=== PATIENT | female | born 1955 | race Caucasian/White ===

== ENCOUNTER 2017-12-28 16:26 | Inpatient (IN) | payer MEDICAID, SELFPAY ==
[2017-12-28 16:57] VITALS: BP 149/85; PULSE 84; RESP 17; TEMP 36.6; O2SAT 96; BMI 30.2
[2017-12-28 19:40] VITALS: BP 129/78; PULSE 90; RESP 12; TEMP 36.6; O2SAT 95
[2017-12-28] MEDS: HYDROcodone Bitartrate/Apap 5/325 Tablet PO (20:02)
[2017-12-28] MEDS: Senna/Docusate Sodium 1 Tablet 2 TABLET PO (21:54)
[2017-12-28] MEDS: MELATONIN 10 MG TABLET 5 MG PO (21:55)
[2017-12-29] MEDS: HYDROcodone Bitartrate/Apap 5/325 Tablet PO ×3 (04:28→20:06)
[2017-12-29 05:58] LABS: Hematocrit 38.9 % (37-47); Hemoglobin 11.8 g/dl (12.0-15.0); Mean Corp Hgb Conc 30.3 g/gl (32-36); Mean Corpuscular Hgb 29.4 pg (27.0-32.0); Mean Platelet Vol. 10.5 fl (6.2-12.0); Platelet Count 252 K/mm3 (150-450); RBC Distribution Width CV 14.6 % (11.6-14.6); RBC Distribution Width SD 51.9 fl (35.1-43.9); Red Blood Count 4.01 M/mm3 (4.2-5.4); White Blood Count 6.4 K/mm3 (4.4-11.0)
[2017-12-29 06:04] LABS: Scan Indicated on CBC? Y/N NO
[2017-12-29 06:26] LABS: Anion Gap 7 (5-15); BUN 21 mg/dL (7-18); BUN/Creat Ratio 24.2 RATIO (10-20); Calcium,Total 8.7 mg/dL (8.5-10.1); Chloride 108 mmol/L (98-107); Creatinine, Serum 0.87 mg/dL (0.55-1.02); EST Glomerular Filtration Rate 71 mL/min (>60); Est Glom Filt Rate - Afr Amer 85 mL/min (>60); Estimated Creatinine Clearance 54.39 ml/min; Glucose 106 mg/dL (74-106); Potassium 4.1 mmol/L (3.5-5.1); Sodium Level 141 mmol/L (136-145)
[2017-12-29] MEDS: Senna/Docusate Sodium 1 Tablet 2 TABLET PO ×2 (08:23→19:57)
[2017-12-29] MEDS: Multivitamins,Ther W-Minerals Tablet 1 TABLET PO (08:24)
[2017-12-29] MEDS: Loratadine 10 MG Tablet PO (08:24)
[2017-12-29] MEDS: Gabapentin 300 MG Capsule PO ×2 (08:24→17:12)
--- NOTE | 2017-12-29 09:31 | HP.PCM.COS_ITS ---
<Gideon Carpio - Last Filed: 12/29/17 11:37> History of Present Illness The patient is a 62 year old F [] Past Medical History Allergies cefaclor [From Ceclor] Allergy (Verified 07/15/17 13:21) Hives cephalexin [From Keflex] Allergy (Verified 07/15/17 13:21) Hives cetirizine [From Zyrtec] Allergy (Verified 12/28/17 18:21) Itching Penicillins Allergy (Verified 07/15/17 13:21) Unknown Sulfa (Sulfonamide Antibiotics) Allergy (Verified 12/28/17 18:01) Hives acetaminophen [From Vicodin] Adverse Reaction (Verified 07/15/17 13:21) Nausea/Vomiting azithromycin [From Zithromax] Adverse Reaction (Verified 12/28/17 18:01) Unknown clarithromycin [From Biaxin] Adverse Reaction (Verified 12/28/17 18:01) Nausea/Vom/Diarrhea erythromycin base Adverse Reaction (Verified 12/28/17 18:01) Nausea/Vom/Diarrhea hydrocodone bitartrate [From Vicodin] Adverse Reaction (Verified 07/15/17 13:21) Nausea/Vomiting salsalate [From Disalcid] Adverse Reaction (Verified 12/28/17 18:01) Nausea/Vom/Diarrhea Home Medications: Ambulatory Orders Medication Instructions Recorded Loratadine [Claritin] 10 mg PO DAILY 05/28/14 Multivit-Min/FA/Lycopene/Lut 1 each PO DAILY 07/25/14 [Centrum Silver Tablet] Exemestane [Aromasin] 25 mg PO QHS 07/15/17 Gabapentin [Neurontin] 300 mg PO BID 12/28/17 - Physical Exam Vital Signs Temp Pulse Resp BP Pulse Ox 36.5 C L 97 17 139/91 H 97 12/29/17 10:00 12/29/17 10:00 12/29/17 10:00 12/29/17 10:00 12/29/17 10:00 Oxygen Delivery Method Room Air Weight: 74.8 kg Body Mass Index (BMI) 30.2 Intake and Output for Last 24 Hours 12/27/17 12/28/17 12/29/17 23:59 23:59 23:59 Intake Total 120 / 120 240 / 240 Output Total 120 / 120 200 / 200 Balance 0 / 0 40 / 40 Laboratory Tests Past 24 Hrs 12/29/17 12/29/17 05:20 05:20 WBC 6.4 RBC 4.01 L Hgb 11.8 L Hct 38.9 MCV 97.0 MCH 29.4 MCHC 30.3 L RDW 14.6 RDW Differential 51.9 H Plt Count 252 MPV 10.5 Sodium 141 Potassium 4.1 Chloride 108 H Carbon Dioxide 26.0 Anion Gap 7 BUN 21 H Creatinine 0.87 Estim Creat Clear Calc 54.39 Est GFR (MDRD) Af Amer 85 Est GFR (MDRD) Non-Af 71 BUN/Creatinine Ratio 24.2 H Glucose 106 Calcium 8.7 <Donya Muniz - Last Filed: 12/29/17 14:54> History of Present Illness Date of Admission: 12/29/17 Chief Complaint: Right Ankle Fracture The patient is a 62 year old right handed female, admitted to the rehab unit after suffering a mechanical fall in which she sustained a bimalleolar mildly displace fracture of her right ankle. She has a past medical history of Breast cancer, relapsing Multiple Sclerosis, Sleep apnea, ulcers and depression. She under went an ORIF of her ankle on 12/24/[address] Kam. She is non-weight bearing on the right, she has a splint in place with sutures, the sutures may be removed in one week with follow up with Dr. Kam at discharge. She lives with her son and father in a bilevel home with about 3 to 4 steps to get into the home and about 4 to 5 steps to go from the first level to the second level. She was previously completely functionally independent and is admitted to the rehab unit in order to restore her previous level of functional independence. Past Medical History Allergies cefaclor [From Ceclor] Allergy (Verified 07/15/17 13:21) Hives cephalexin [From Keflex] Allergy (Verified 07/15/17 13:21) Hives cetirizine [From Zyrtec] Allergy (Verified 12/28/17 18:21) Itching Penicillins Allergy (Verified 07/15/17 13:21) Unknown Sulfa (Sulfonamide Antibiotics) Allergy (Verified 12/28/17 18:01) Hives acetaminophen [From Vicodin] Adverse Reaction (Verified 07/15/17 13:21) Nausea/Vomiting azithromycin [From Zithromax] Adverse Reaction (Verified 12/28/17 18:01) Unknown clarithromycin [From Biaxin] Adverse Reaction (Verified 12/28/17 18:01) Nausea/Vom/Diarrhea erythromycin base Adverse Reaction (Verified 12/28/17 18:01) Nausea/Vom/Diarrhea hydrocodone bitartrate [From Vicodin] Adverse Reaction (Verified 07/15/17 13:21) Nausea/Vomiting salsalate [From Disalcid] Adverse Reaction (Verified 12/28/17 18:01) Nausea/Vom/Diarrhea Surgical History: hysterectomy, tonsillectomy, - - Lumpectomy of left breast Psychiatric History: Depression 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: - - Breast cancer Lives: With Family Smoking Status: Former smoker Alcohol: Occasional Drugs: None Review of Systems Constitutional: Denies: Chills, Fever, Weight Change HEENT: Denies: Head Aches, Sinus Congestion, Sinus Drainage Cardiovascular: Denies: Chest Pain, Palpitations Respiratory: Denies: Cough, Shortness of breath at rest, Sputum production Gastrointestinal: Denies: Abdominal Pain, Nausea, Vomiting Genitourinary: Denies: Dysuria Musculoskeletal: Denies: Joint Pain, Joint Tenderness Skin: Denies: Rash, Wounds Neurological: Denies: Numbness, Tingling, Focal weakness Psychiatric: Denies: Anxiety, Depression, Homicidal Ideations, Suicidal Ideations Hematologic/ Lymphatic: Denies: Easy Bruising, Easy Bleeding VTE Information - Inpt Only VTE Present on Admission: No VTE Mechan Device Prophylaxis: SCD's, Knee High SHIRA Hose VTE Pharm Prophylaxis ordered?: Yes - Physical Exam General: Alert, Oriented x3, Cooperative HEENT: Atraumatic, PERRLA, EOMI, Normocephalic Neck: Supple, No JVD, Negative Carotid Bruits Lungs: Clear to auscultation, Normal air movement Cardiovascular: Regular rate, No murmurs Abdomen: Bowel Sounds Present, Soft, Non Tender Extremities: No edema, Capillary Refill Less than 3 Seconds, - - Cast to right lower leg, foot is warm to touch Skin: No rashes, No breakdown Musculoskeletal: No Tenderness to Palpation of Joints or Extremities Neurological: Cranial nerves II-XII grossly intact, Motor Exam 5/5 strength throughout - unable to test right leg Psych/Mental Status: Normal Affect, Appropriate, Alert and oriented to time, place, person, mood and affect Vital Signs Temp Pulse Resp BP Pulse Ox 98 F 90 12 129/78 H 95 12/28/17 19:40 12/28/17 19:40 12/28/17 19:40 12/28/17 19:40 12/28/17 19:40 Oxygen Delivery Method Room Air Weight: 74.8 kg Body Mass Index (BMI) 30.2 Intake and Output for Last 24 Hours 12/27/17 12/28/17 12/29/17 23:59 23:59 23:59 Intake Total 120 / 120 240 / 240 Output Total 120 / 120 200 / 200 Balance 0 / 0 40 / 40 Laboratory Tests Past 24 Hrs 12/29/17 12/29/17 05:20 05:20 WBC 6.4 RBC 4.01 L Hgb 11.8 L Hct 38.9 MCV 97.0 MCH 29.4 MCHC 30.3 L RDW 14.6 RDW Differential 51.9 H Plt Count 252 MPV 10.5 Sodium 141 Potassium 4.1 Chloride 108 H Carbon Dioxide 26.0 Anion Gap 7 BUN 21 H Creatinine 0.87 Estim Creat Clear Calc 54.39 Est GFR (MDRD) Af Amer 85 Est GFR (MDRD) Non-Af 71 BUN/Creatinine Ratio 24.2 H Glucose 106 Calcium 8.7 Active Medications Hydrocodone Bitart/Acetaminophen ([place] 5mg-325mg) 1 - 2 tablet PO Q6H PRN PRN PRN Reason: MOD-SEVERE PAIN (4-10/10) Last Admin: 12/29/17 04:28 Dose: 2 tablet Bisacodyl (Dulcolax) 10 mg RECTAL .PRN X 1 PRN PRN Reason: Constipation Enoxaparin Sodium (Lovenox) 40 mg SC DAILY [facility] Last Admin: 12/29/17 10:27 Dose: 40 mg Exemestane (Aromasin) 25 mg PO QHS [facility] Last Admin: 12/28/17 21:57 Dose: 25 mg Gabapentin ([facility]urontin) [facility] Last Admin: 12/29/17 08:24 Dose: 300 mg Loratadine (Claritin) 10 mg PO DAILY [facility] Last Admin: 12/29/17 08:24 Dose: 10 mg Magnesium Hydroxide (Milk Of Magnesia) 30 ml PO .PRN X 1 PRN PRN Reason: Constipation Melatonin (Mel[facility]) [facility] Last Admin: 12/28/17 21:55 Dose: 5 mg Multivitamins/Minerals (Multivitamin With Minerals) 1 tablet PO DAILY@0800 [facility] Last Admin: 12/29/17 08:24 Dose: 1 tablet Senna/Docusate Sodium (Senokot-S, Carrie-Colace) 2 tablet PO BID [facility] Last Admin: 12/29/17 08:23 Dose: 2 tablet Assessment/Plan Debility s/p Right ankle fx/orif, complicated by MS, Trigeminal Neuralgia, and depression. goal of rehab is confucianism of functional independence. - PT for gait and balance - OT for adls - PRN analgesics - Bowel protocol - DVT prophylaxis: Lovenox, SCDs, and Shira Hoses - Hx TN: continue home dose of GPN 300mg BID, and Tegretol 100mg BID - Hx Relapsing MS: currently in remission patient is not on any medication at present - Hx Left breast Lumpectomy - Hx Depression currently not on medications was on Lexapro - Right ankle ORIF => NWB, in soft cast dressing is C/D/I, Sutures removal on 05 january by rehab team. Follow up with surgeon on discharge from rehab
[2017-12-29 10:00] VITALS: BP 139/91; PULSE 97; RESP 17; TEMP 36.5; O2SAT 97
[2017-12-29] MEDS: Enoxaparin 40 MG/0.4 ML Syringe SC (10:27)
--- NOTE | 2017-12-29 11:23 | PCM.RU.PYE ---
Admission Information Status Changes from Prescreening?: No changes Identified Actual Problem List:: Falls, Pain, ALteration in Cmfrt, Mobility Impaired, Self Care Deficit, Ineffect.D/C Plan r/t Psy Potential Problem List:: DVT, Bleeding, Infection, UTI, Aspiration, Falls, Skin Integrity, Depression Risk of Complications DVT: LMWH, SHIRA Hose, Sequential Compression Device Bleeding: Monitor Lab Values, Nursing to Teach Precautions for anti-coagulation therapy., Wound, if applicable, to be assessed every shift., Stroke patients assessed for lethargy or change in status. Infection: Clinical Staff to Monitor for S/S of infection:, S/S of infection include fever, redness, warmth, etc. Urinary Tract Infection: Monitor for frequency, burning, discomfort, or incontinence., Nursing will obtain urine sample for urinalysis and C&S when ordered. Aspiration: Clinical staff will monitor for coughing, drooling, congestion., Speech will evaluate swallowing and dsyphasia., Nursing will monitor patient swallowing during meals. Falls: Patient will be evaluated for Fall Precautions, Patient will be placed on Fall Precautions as indicated per protocol. Skin Breakdown: Nursing will assess skin daily using assessment tool., Nursing will place on Skin Breakdown Precautions as indicated. Pain: Clinical staff will assess patient's pain level per protocol., Medications will be given, if needed, and the pain level reassessed., Other methods: Massage, distraction, decrease stimulus, etc. used PRN. Plan of Care Patient requires physician specializing in physical medicine and rehab oversight to provide close medical supervision of rehab issues including: Pain Management, Sleep Problems, Bowel and Bladder, Medical and co-morbidity Management, DVT prophylaxis, Rehabilitation Leadership, Coordination of treatment team Patient needs Physical Therapy: For a minimum of 1 hour, At least 5 out of 7 days Patient needs Physical Therapy to improve:: Mobility, Mobility, Mobility, Strengthening, Transfers, Stretching, ROM, Endurance, Stairs, Gait, Balance Patient needs Occupational Therapy: For a minimum of 1 hour, At least 5 out of 7 days Patient needs Occupational Therapy to improve ADL's incl.: Eating, Grooming, Bathing, Dressing, Toileting, Toilet transfers, Community Reintegration, Higher functioning activities, Household tasks, Adaptive Equipment, Splinting, Other activities as determined Patient requires 24/ Rehabilitation Nursing for: Pain Issues, Identifying and preventing risk factors, Monitoring and reporting current medical conditions, Assisting with ambulation, transfer, and all ADL's, Teaching patients about disease process and medications, Family teaching, Providing safe environment, Bowel and Bladder Issues, Skin integrity, Medication Management Patient needs Stave Log Ripsaw Operator/ Case Management for: Discharge Planning, Arranging Home Equipment or Services, Family Interventions Patient needs Dietary and Nutrition Services for: Adequate Nutrition, Nutritional Supplements, Nutritional Education Goals Patient will remain: free from falls, or injury at time of discharge. Patient will perform bed mobility at: MOD I level of assist. Patient will complete transfers from bed to chair at: MOD I level of assist. Patient will ambulate: 100 feet, with MOD I assist, with LRD Patient will complete upper body dressing at: MOD I level of assist. Patient will complete lower body dressing at: MOD I level of assist. Patient will complete toileting at: MOD I level of assist. Patient will perform bathing at: MOD I level of assist. Patient will complete grooming at: MOD I level of assist. Patient will complete home management skills at: MOD I level of assist. Patient will achieve: 12 stairs, at MOD I assist Patient will have pain level of: of 3 or less Patient's skin will: remain intact, free from infection. Patient will receive: adequate nutrition. Discharge Planning Pt Prognosis for Sig. Practical Improv. w/in Reasonable Time: Good Anticipated D/C Destination: Home with Outpt Therapy Was Preadmission Assessment Accurate?: Yes
[2017-12-29 13:00] VITALS: O2SAT 97
--- NOTE | 2017-12-29 14:28 | PCM.PN.HOSP ---
Subjective: CC: s/p ORIF right ankle. Objective: This is a 62 year old female with a history of breast cancer, relapsing Multiple Sclerosis, Sleep apnea, peptic ulcers and depression who is s/p ORIF of her right ankle on 12/24/17 at [facility], after she had a mechanical fall in which she sustained a bimalleolar mildly displace fracture of her right ankle, she is now admitted to the rehab unit for further post acute care rehabilitation. The patient currently denies any chest pain , shortness of breath, palpitations or rapid heartbeat. Vitals/I&O's: Vital Signs Temp Pulse Resp BP Pulse Ox 97.7 F L 97 17 139/91 H 97 12/29/17 10:00 12/29/17 10:00 12/29/17 10:00 12/29/17 10:00 12/29/17 13:00 Oxygen Delivery Method Room Air Weight: 74.8 kg Body Mass Index (BMI) 30.2 Intake and Output for Last 24 Hours 12/27/17 12/28/17 12/29/17 23:59 23:59 23:59 Intake Total 120 / 120 480 / 480 Output Total 120 / 120 200 / 200 Balance 0 / 0 280 / 280 General: Alert, Oriented x3 HEENT: Atraumatic, PERRLA Oral: Moist Mucosa Neck: Supple Lungs: Clear to auscultation, No wheeze, No rales Cardiovascular: Regular rate, Normal S1, Normal S2 Abdomen: Bowel Sounds Present, Soft, Non Tender Extremities: No edema Musculoskeletal: - Laboratory Results 12/29/17 05:20: WBC 6.4, RBC 4.01 L, Hgb 11.8 L, Hct 38.9, MCV 97.0, MCH 29.4, MCHC 30.3 L, RDW 14.6, RDW Differential 51.9 H, Plt Count 252, MPV 10.5 12/29/17 05:20: Sodium 141, Potassium 4.1, Chloride 108 H, Carbon Dioxide 26.0, Anion Gap 7, BUN 21 H, Creatinine 0.87, Estim Creat Clear Calc 54.39, Est GFR (MDRD) Af Amer 85, Est GFR (MDRD) Non-Af 71, BUN/Creatinine Ratio 24.2 H, Glucose 106, Calcium 8.7 Current Medications Hydrocodone Bitart/Acetaminophen ([place] 5mg-325mg) 1 - 2 tablet PO Q6H PRN PRN PRN Reason: MOD-SEVERE PAIN (4-10/10) Last Admin: 12/29/17 13:26 Dose: 2 tablet Bisacodyl (Dulcolax) 10 mg RECTAL .PRN X 1 PRN PRN Reason: Constipation Carbamazepine (Tegretol) [facility] Enoxaparin Sodium (Lovenox) 40 mg SC DAILY [facility] Last Admin: 12/29/17 10:27 Dose: 40 mg Exemestane (Aromasin) 25 mg PO QHS [facility] Last Admin: 12/28/17 21:57 Dose: 25 mg Gabapentin (Neurontin) [facility] Last Admin: 12/29/17 08:24 Dose: 300 mg Loratadine (Claritin) 10 mg PO DAILY [facility] Last Admin: 12/29/17 08:24 Dose: 10 mg Magnesium Hydroxide (Milk Of Magnesia) 30 ml PO .PRN X 1 PRN PRN Reason: Constipation [facility]) [facility] Last Admin: 12/28/17 21:55 Dose: 5 mg Multivitamins/Minerals (Multivitamin With Minerals) 1 tablet PO DAILY@0800 [facility] Last Admin: 12/29/17 08:24 Dose: 1 tablet Senna/Docusate Sodium (Senokot-S, Carrie-Colace) 2 tablet PO BID [facility] Last Admin: 12/29/17 08:23 Dose: 2 tablet Medical Necessity - Tobacco Use Smoking Status: Former smoker Assessment/Plan 1. Status post ORIF of right ankle; the patient is nonweightbearing at this time, continue physical therapy as tolerated and optimize pain control. 2. Relapsing Multiple Sclerosis; she is currently in remission. 3. Breast cancer s/p lumpectomy. 4. Sleep apnea; med recommend HS CPAP 5. Depression; this is stable. 7. DVT prophylaxis with Lovenox. Code Visit Inpatient E&M: 84907 Subs Hosp L2
--- NOTE | 2017-12-29 15:59 | CASEMGMT ---
Social Work Telephone call to patient son, Corby. This social services counselor introduced self as well as social work role. This social services counselor educating Corby on insurance process on the Inpatient Rehab Unit as well as when the first team meeting will be. Corby voicing understanding. Support given. Will continue to follow. Lavinia JONES, DIETETIC TECHNICIAN
[2017-12-29] MEDS: carBAMazepine 200 MG Tablet 100 MG PO (17:12)
--- NOTE | 2017-12-29 18:12 | NURSING ---
Reviewed STERILE PROCESS COORDINATOR findings and agree.
[2017-12-29 19:30] VITALS: BP 151/86; PULSE 92; RESP 16; TEMP 36.7; O2SAT 97
[2017-12-29] MEDS: MELATONIN 10 MG TABLET 5 MG PO (19:56)
--- NOTE | 2017-12-30 01:18 | NURSING ---
Reviewed and agree with DOMESTIC LAUNDRY WORKER documentation and FIMS charting.
[2017-12-30] MEDS: HYDROcodone Bitartrate/Apap 5/325 Tablet PO ×2 (05:52→17:12)
[2017-12-30] MEDS: Enoxaparin 40 MG/0.4 ML Syringe SC (06:00)
[2017-12-30 06:45] VITALS: O2SAT 97
[2017-12-30 08:16] VITALS: BP 144/90; PULSE 103; RESP 18; TEMP 36.8; O2SAT 93
[2017-12-30] MEDS: carBAMazepine 200 MG Tablet 100 MG PO ×2 (08:29→17:14)
[2017-12-30] MEDS: Senna/Docusate Sodium 1 Tablet 2 TABLET PO (08:29)
[2017-12-30] MEDS: Pantoprazole Sodium 40 MG Tablet PO (08:30)
[2017-12-30] MEDS: Gabapentin 300 MG Capsule PO ×2 (08:30→17:15)
[2017-12-30] MEDS: Multivitamins,Ther W-Minerals Tablet 1 TABLET PO (08:30)
[2017-12-30] MEDS: Loratadine 10 MG Tablet PO (08:30)
--- NOTE | 2017-12-30 10:24 | PCM.PN.NEU ---
Subjective: Patient seen and examined. No acute issues over night. Tolerating therapy. No issues with GI/. Patient does snore during the night and has trouble staying awake during the day, easily falls a sleep during activates, or watching T.V. This could be related to her MS but feel she may need a PSG to rule out obstructive sleep apnea. - Physical Exam General: Alert, Oriented x3, Cooperative HEENT: Atraumatic, PERRLA, EOMI, Normocephalic Neck: Supple, No JVD, Negative Carotid Bruits Lungs: Clear to auscultation, Normal air movement Cardiovascular: Regular rate, No murmurs Abdomen: Bowel Sounds Present, Soft, Non Tender Extremities: No edema, Capillary Refill Less than 3 Seconds Skin: No rashes, No breakdown Musculoskeletal: No Tenderness to Palpation of Joints or Extremities Neurological: Cranial nerves II-XII grossly intact Psych/Mental Status: Normal Affect, Appropriate Vital Signs Temp Pulse Resp BP Pulse Ox 98.2 F 103 H 18 144/90 H 93 12/30/17 08:16 12/30/17 08:16 12/30/17 08:16 12/30/17 08:16 12/30/17 08:16 Oxygen Delivery Method Room Air Weight: 74.8 kg Body Mass Index (BMI) 30.2 Intake and Output for Last 24 Hours 12/28/17 12/29/17 12/30/17 23:59 23:59 23:59 Intake Total 120 / 120 720 / 720 240 / 240 Output Total 120 / 120 200 / 200 Balance 0 / 0 520 / 520 240 / 240 Active Medications Hydrocodone Bitart/Acetaminophen ([place] 5mg-325mg) 1 - 2 tablet PO Q6H PRN PRN PRN Reason: MOD-SEVERE PAIN (4-10/10) Last Admin: 12/30/17 05:52 Dose: 2 tablet Bisacodyl (Dulcolax) 10 mg RECTAL .PRN X 1 PRN PRN Reason: Constipation [facility]) [facility] Last Admin: 12/30/17 08:29 Dose: 100 mg Enoxaparin Sodium (Lovenox) 40 mg SC DAILY@0600 [facility] Last Admin: 12/30/17 06:00 Dose: 40 mg Exemestane (Aromasin) 25 mg PO QHS [facility] Last Admin: 12/29/17 19:57 Dose: 25 mg Gabapentin (Neurontin) [facility] Last Admin: 12/30/17 08:30 Dose: 300 mg Loratadine (Claritin) 10 mg PO DAILY [facility] Last Admin: 12/30/17 08:30 Dose: 10 mg Magnesium Hydroxide (Milk Of Magnesia) 30 ml PO .PRN X 1 PRN PRN Reason: Constipation Melatonin (Melatonin) 5 mg PO QHS [facility] Last Admin: 12/29/17 19:56 Dose: 5 mg Multivitamins/Minerals (Multivitamin With Minerals) 1 tablet PO DAILY@0800 [facility] Last Admin: 12/30/17 08:30 Dose: 1 tablet Pantoprazole Sodium (Protonix) 40 mg PO DAILY [facility] Last Admin: 12/30/17 08:30 Dose: 40 mg Senna/Docusate Sodium (Senokot-S, Carrie-Colace) 2 tablet PO BID [facility] Last Admin: 12/30/17 08:29 Dose: 2 tablet Medical Necessity - Tobacco Use Smoking Status: Former smoker Assessment/Plan Debility s/p Right ankle fx/orif, complicated by MS, Trigeminal Neuralgia, and depression. goal of rehab is synagogue of functional independence. - PT for gait and balance - OT for adls - PRN analgesics - Bowel protocol - DVT prophylaxis: Lovenox, SCDs, and Zoltan Hoses - Hx TN: continue home dose of GPN 300mg BID, and Tegretol 100mg BID - Hx Relapsing MS: currently in remission patient is not on any medication at present - Hx Left breast Lumpectomy - Hx Depression currently not on medications was on Lexapro - Right ankle ORIF => NWB, in soft cast dressing is C/D/I, Sutures removal on 05 january by rehab team. Follow up with surgeon on discharge from rehab - Patient snores during the night has trouble staying awake during the day, have problems with daily activities due to excessive tiredness, will schedule a PSG once discharge home
--- NOTE | 2017-12-30 10:28 | PN.NEURO_ITS ---
Subjective: Patient seen and examined. No acute issues over night. Tolerating therapy. No issues with GI/. Patient does snore during the night and has trouble staying awake during the day, easily falls a sleep during activates, or watching T.V. This could be related to her MS but feel she may need a PSG to rule out obstructive sleep apnea. - Physical Exam General: Alert, Oriented x3, Cooperative HEENT: Atraumatic, PERRLA, EOMI, Normocephalic Neck: Supple, No JVD, Negative Carotid Bruits Lungs: Clear to auscultation, Normal air movement Cardiovascular: Regular rate, No murmurs Abdomen: Bowel Sounds Present, Soft, Non Tender Extremities: No edema, Capillary Refill Less than 3 Seconds Skin: No rashes, No breakdown Musculoskeletal: No Tenderness to Palpation of Joints or Extremities Neurological: Cranial nerves II-XII grossly intact Psych/Mental Status: Normal Affect, Appropriate Vital Signs Temp Pulse Resp BP Pulse Ox 98.2 F 103 H 18 144/90 H 93 12/30/17 08:16 12/30/17 08:16 12/30/17 08:16 12/30/17 08:16 12/30/17 08:16 Oxygen Delivery Method Room Air Weight: 74.8 kg Body Mass Index (BMI) 30.2 Intake and Output for Last 24 Hours 12/28/17 12/29/17 12/30/17 23:59 23:59 23:59 Intake Total 120 / 120 720 / 720 240 / 240 Output Total 120 / 120 200 / 200 Balance 0 / 0 520 / 520 240 / 240 Active Medications Hydrocodone Bitart/Acetaminophen ([place] 5mg-325mg) 1 - 2 tablet PO Q6H PRN PRN PRN Reason: MOD-SEVERE PAIN (4-10/10) Last Admin: 12/30/17 05:52 Dose: 2 tablet Bisacodyl (Dulcolax) 10 mg RECTAL .PRN X 1 PRN PRN Reason: Constipation Carbamazepine ([facility]) [facility] Last Admin: 12/30/17 08:29 Dose: 100 mg Enoxaparin Sodium (Lovenox) 40 mg SC DAILY@0600 [facility] Last Admin: 12/30/17 06:00 Dose: 40 mg Exemestane (Aromasin) 25 mg PO QHS [facility] Last Admin: 12/29/17 19:57 Dose: 25 mg Gabapentin (Neurontin) [facility] Last Admin: 12/30/17 08:30 Dose: 300 mg Loratadine (Claritin) 10 mg PO DAILY [facility] Last Admin: 12/30/17 08:30 Dose: 10 mg Magnesium Hydroxide (Milk Of Magnesia) 30 ml PO .PRN X 1 PRN PRN Reason: Constipation Melatonin (Melatonin) 5 mg PO QHS [facility] Last Admin: 12/29/17 19:56 Dose: 5 mg Multivitamins/Minerals (Multivitamin With Minerals) 1 tablet PO DAILY@0800 [facility] Last Admin: 12/30/17 08:30 Dose: 1 tablet Pantoprazole Sodium (Protonix) 40 mg PO DAILY [facility] Last Admin: 12/30/17 08:30 Dose: 40 mg Senna/Docusate Sodium (Senokot-S, Carrie-Colace) 2 tablet PO BID [facility] Last Admin: 12/30/17 08:29 Dose: 2 tablet Medical Necessity - Tobacco Use Smoking Status: Former smoker Assessment/Plan Debility s/p Right ankle fx/orif, complicated by MS, Trigeminal Neuralgia, and depression. goal of rehab is [facility] of functional independence. - PT for gait and balance - OT for adls - PRN analgesics - Bowel protocol - DVT prophylaxis: Lovenox, SCDs, and Zoltan Hoses - Hx TN: continue home dose of GPN 300mg BID, and Tegretol 100mg BID - Hx Relapsing MS: currently in remission patient is not on any medication at present - Hx Left breast Lumpectomy - Hx Depression currently not on medications was on Lexapro - Right ankle ORIF => NWB, in soft cast dressing is C/D/I, Sutures removal on 05 january by rehab team. Follow up with surgeon on discharge from rehab - Patient snores during the night has trouble staying awake during the day, have problems with daily activities due to excessive tiredness, will schedule a PSG once discharge home
--- NOTE | 2017-12-30 16:17 | CHAPLAIN ---
Type of Pastoral Visit _x__ Initial Visit ___ Follow-up Visit ___ On-call Visit ___ General Patient Visit ___ Spiritual Assessment ___ Family Conference ___ Bereavement ___ Rapid Response ___ Code Blue ___ Other (describe below) Pastoral Care Referral From _x__ Patient ___ Family ___ Nurse ___ Physician ___ Consumer Services Consultant ___ Gear Hobber Operator ___ Other (describe below) Sacrament/Intervention _x__ Active listening ___ Anointing ___ Moravian ___ Bereavement ___ Communion ___ Lizett exploration ___ ___ Life review _x__ Prayer ___ Reconciliation ___ Sacrament of Sick _x__ Supportive presence ___ Wedding ___ Other (describe below) Pastoral Comments
[2017-12-30 20:30] VITALS: PULSE 98; RESP 18; O2SAT 96
[2017-12-30] MEDS: MELATONIN 10 MG TABLET 5 MG PO (20:54)
--- NOTE | 2017-12-31 03:50 | NURSING ---
Reviewed and agree with MAIL SUPERINTENDENT documentation and FIMS charting.
[2017-12-31] MEDS: Enoxaparin 40 MG/0.4 ML Syringe SC (05:43)
[2017-12-31] MEDS: HYDROcodone Bitartrate/Apap 5/325 Tablet PO ×3 (05:44→21:31)
[2017-12-31] MEDS: Gabapentin 300 MG Capsule PO ×2 (08:00→16:55)
[2017-12-31] MEDS: carBAMazepine 200 MG Tablet 100 MG PO ×2 (08:00→16:55)
[2017-12-31] MEDS: Senna/Docusate Sodium 1 Tablet 2 TABLET PO ×2 (08:00→21:32)
[2017-12-31] MEDS: Multivitamins,Ther W-Minerals Tablet 1 TABLET PO (08:00)
[2017-12-31] MEDS: Loratadine 10 MG Tablet PO (08:01)
[2017-12-31] MEDS: Pantoprazole Sodium 40 MG Tablet PO (08:01)
[2017-12-31 08:50] VITALS: BP 130/82; PULSE 95; RESP 16; TEMP 36.6; O2SAT 94
[2017-12-31 14:43] VITALS: O2SAT 98
[2017-12-31 19:51] VITALS: BP 133/75; PULSE 92; RESP 16; TEMP 36.8; O2SAT 93
[2017-12-31 21:20] VITALS: PULSE 92; RESP 16; O2SAT 93
[2017-12-31] MEDS: MELATONIN 10 MG TABLET 5 MG PO (21:32)
--- NOTE | 2018-01-01 05:58 | NURSING ---
Reviewed LPNs fims and handoff
[2018-01-01] MEDS: Enoxaparin 40 MG/0.4 ML Syringe SC (06:21)
[2018-01-01 08:00] VITALS: BP 119/91; PULSE 108; RESP 17; TEMP 36.5; O2SAT 97
[2018-01-01] MEDS: Senna/Docusate Sodium 1 Tablet 2 TABLET PO ×2 (08:14→21:39)
[2018-01-01] MEDS: Loratadine 10 MG Tablet PO (08:14)
[2018-01-01] MEDS: carBAMazepine 200 MG Tablet 100 MG PO ×2 (08:14→17:15)
[2018-01-01] MEDS: Multivitamins,Ther W-Minerals Tablet 1 TABLET PO (08:14)
[2018-01-01] MEDS: Gabapentin 300 MG Capsule PO ×2 (08:14→17:15)
[2018-01-01] MEDS: Pantoprazole Sodium 40 MG Tablet PO (08:14)
[2018-01-01] MEDS: HYDROcodone Bitartrate/Apap 5/325 Tablet PO ×2 (12:29→21:39)
--- NOTE | 2018-01-01 16:38 | PCM.PN.HOSP ---
Subjective: Patient was seen and examined. No new complains. Denies fever, chills. Therapy going well. Objective: General: Alert, Oriented x3, not pale or jaundiced HEENT: Atraumatic, PERRLA Oral: Moist Mucosa Neck: Supple Lungs: Clear to auscultation, No wheeze, No rales Cardiovascular: Regular rate, Normal S1, Normal S2 Abdomen: Bowel Sounds Present, Soft, Non Tender Extremities: No edema Musculoskeletal: Right ankle fracture, in splint. Vitals/I&O's: Vital Signs Temp Pulse Resp BP Pulse Ox 97.7 F L 108 H 17 119/91 H 97 01/01/18 08:00 01/01/18 08:00 01/01/18 08:00 01/01/18 08:00 01/01/18 08:00 Oxygen Delivery Method Room Air Weight: 74.8 kg Body Mass Index (BMI) 30.2 Intake and Output for Last 24 Hours 12/30/17 12/31/17 01/01/18 23:59 23:59 23:59 Intake Total 600 / 600 700 / 700 480 / 480 Balance 600 / 600 700 / 700 480 / 480 Current Medications Hydrocodone Bitart/Acetaminophen ([place] 5mg-325mg) 1 - 2 tablet PO Q6H PRN PRN PRN Reason: MOD-SEVERE PAIN (4-10/10) Last Admin: 01/01/18 12:29 Dose: 2 tablet Bisacodyl (Dulcolax) 10 mg RECTAL .PRN X 1 PRN PRN Reason: Constipation [facility] Last Admin: 01/01/18 08:14 Dose: 100 mg Enoxaparin Sodium (Lovenox) 40 mg SC DAILY@0600 [facility] Last Admin: 01/01/18 06:21 Dose: 40 mg Exemestane (Aromasin) 25 mg PO QHS [facility] Last Admin: 12/31/17 21:32 Dose: 25 mg Gabapentin (Neurontin) 300 mg PO BIDCM [facility] Last Admin: 01/01/18 08:14 Dose: 300 mg Loratadine (Claritin) 10 mg PO DAILY [facility] Last Admin: 01/01/18 08:14 Dose: 10 mg Magnesium Hydroxide (Milk Of Magnesia) 30 ml PO .PRN X 1 PRN PRN Reason: Constipation Melatonin (Melatonin) 5 mg PO QHS [facility] Last Admin: 12/31/17 21:32 Dose: 5 mg Multivitamins/Minerals (Multivitamin With Minerals) 1 tablet PO DAILY@0800 [facility] Last Admin: 01/01/18 08:14 Dose: 1 tablet Pantoprazole Sodium (Protonix) 40 mg PO DAILY [facility] Last Admin: 01/01/18 08:14 Dose: 40 mg Senna/Docusate Sodium (Senokot-S, Carrie-Colace) 2 tablet PO BID [facility] Last Admin: 01/01/18 08:14 Dose: 2 tablet Medical Necessity - Tobacco Use Smoking Status: Former smoker Assessment/Plan 62 year old female with a history of breast cancer, relapsing multiple Sclerosis, sleep apnea, peptic ulcers and depression who is s/p ORIF of her right ankle on 12/24/17 at [facility]. 1. status post ORIF of right ankle, undergoing physical therapy 2. Relapsing Multiple Sclerosis, in remission 3. Breast cancer s/p lumpectomy, on exemastane 4. Depression, stable 5. DVT prophylaxis with Lovenox. Code Visit Inpatient E&M: 89552 Subs Hosp L2
--- NOTE | 2018-01-01 16:55 | PN_ITS ---
Subjective: Patient was seen and examined. No new complains. Denies fever, chills. Therapy going well. Objective: General: Alert, Oriented x3, not pale or jaundiced HEENT: Atraumatic, PERRLA Oral: Moist Mucosa Neck: Supple Lungs: Clear to auscultation, No wheeze, No rales Cardiovascular: Regular rate, Normal S1, Normal S2 Abdomen: Bowel Sounds Present, Soft, Non Tender Extremities: No edema Musculoskeletal: Right ankle fracture, in splint. Vitals/I&O's: Vital Signs Temp Pulse Resp BP Pulse Ox 97.7 F L 108 H 17 119/91 H 97 01/01/18 08:00 01/01/18 08:00 01/01/18 08:00 01/01/18 08:00 01/01/18 08:00 Oxygen Delivery Method Room Air Weight: 74.8 kg Body Mass Index (BMI) 30.2 Intake and Output for Last 24 Hours 12/30/17 12/31/17 01/01/18 23:59 23:59 23:59 Intake Total 600 / 600 700 / 700 480 / 480 Balance 600 / 600 700 / 700 480 / 480 Current Medications Hydrocodone Bitart/Acetaminophen ([place] 5mg-325mg) 1 - 2 tablet PO Q6H PRN PRN PRN Reason: MOD-SEVERE PAIN (4-10/10) Last Admin: 01/01/18 12:29 Dose: 2 tablet Bisacodyl (Dulcolax) 10 mg RECTAL .PRN X 1 PRN PRN Reason: Constipation [facility] ([facility]) [facility] Last Admin: 01/01/18 08:14 Dose: 100 mg Enoxaparin Sodium (Lovenox) 40 mg SC DAILY@0600 [facility] Last Admin: 01/01/18 06:21 Dose: 40 mg Exemestane (Aromasin) 25 mg PO QHS [facility] Last Admin: 12/31/17 21:32 Dose: 25 mg Gabapentin (Neurontin) 300 mg PO BIDCM [facility] Last Admin: 01/01/18 08:14 Dose: 300 mg Loratadine (Claritin) 10 mg PO DAILY [facility] Last Admin: 01/01/18 08:14 Dose: 10 mg Magnesium Hydroxide (Milk Of Magnesia) 30 ml PO .PRN X 1 PRN PRN Reason: Constipation Melatonin (Melatonin) 5 mg PO QHS [facility] Last Admin: 12/31/17 21:32 Dose: 5 mg Multivitamins/Minerals (Multivitamin With Minerals) 1 tablet PO DAILY@0800 [facility] Last Admin: 01/01/18 08:14 Dose: 1 tablet Pantoprazole Sodium (Protonix) 40 mg PO DAILY [facility] Last Admin: 01/01/18 08:14 Dose: 40 mg Senna/Docusate Sodium (Senokot-S, Carrie-Colace) 2 tablet PO BID [facility] Last Admin: 01/01/18 08:14 Dose: 2 tablet Medical Necessity - Tobacco Use Smoking Status: Former smoker Assessment/Plan 62 year old female with a history of breast cancer, relapsing multiple Sclerosis , sleep apnea, peptic ulcers and depression who is s/p ORIF of her right ankle on 12/24/17 at [facility]. 1. status post ORIF of right ankle, undergoing physical therapy 2. Relapsing Multiple Sclerosis, in remission 3. Breast cancer s/p lumpectomy, on exemastane 4. Depression, stable 5. DVT prophylaxis with Lovenox. Code Visit Inpatient E&M: 80928 Subs Hosp L2
[2018-01-01 18:53] VITALS: BP 109/60; PULSE 98; RESP 18; TEMP 36.8; O2SAT 95
[2018-01-01] MEDS: MELATONIN 10 MG TABLET 5 MG PO (21:39)
--- NOTE | 2018-01-02 05:11 | NURSING ---
Reviewed LPNs fims and handoff
[2018-01-02] MEDS: Enoxaparin 40 MG/0.4 ML Syringe SC (06:33)
[2018-01-02 07:25] VITALS: BP 129/76; PULSE 86; RESP 18; TEMP 36.6; O2SAT 96
[2018-01-02] MEDS: Senna/Docusate Sodium 1 Tablet 2 TABLET PO (07:58)
[2018-01-02] MEDS: Multivitamins,Ther W-Minerals Tablet 1 TABLET PO (07:58)
[2018-01-02] MEDS: Loratadine 10 MG Tablet PO (07:58)
[2018-01-02] MEDS: Gabapentin 300 MG Capsule PO ×2 (07:58→17:25)
[2018-01-02] MEDS: Pantoprazole Sodium 40 MG Tablet PO (07:58)
[2018-01-02] MEDS: carBAMazepine 200 MG Tablet 100 MG PO ×2 (07:58→17:25)
[2018-01-02] MEDS: HYDROcodone Bitartrate/Apap 5/325 Tablet PO ×2 (08:17→21:02)
[2018-01-02 20:03] VITALS: BP 114/70; PULSE 94; RESP 18; TEMP 36.7; O2SAT 96
[2018-01-02 20:50] VITALS: PULSE 96; RESP 18; O2SAT 96
[2018-01-02] MEDS: MELATONIN 10 MG TABLET 5 MG PO (21:03)
--- NOTE | 2018-01-03 02:09 | NURSING ---
Reviewed and agree with LPNs fims and handoff
[2018-01-03] MEDS: Enoxaparin 40 MG/0.4 ML Syringe SC (05:26)
[2018-01-03] MEDS: HYDROcodone Bitartrate/Apap 5/325 Tablet PO ×3 (06:35→20:51)
[2018-01-03 07:56] VITALS: BP 135/75; PULSE 100; RESP 16; TEMP 36.3; O2SAT 100
[2018-01-03] MEDS: Loratadine 10 MG Tablet PO (07:58)
[2018-01-03] MEDS: carBAMazepine 200 MG Tablet 100 MG PO ×2 (07:58→17:35)
[2018-01-03] MEDS: Gabapentin 300 MG Capsule PO ×2 (07:58→17:35)
[2018-01-03] MEDS: Pantoprazole Sodium 40 MG Tablet PO (07:58)
[2018-01-03] MEDS: Multivitamins,Ther W-Minerals Tablet 1 TABLET PO (07:59)
--- NOTE | 2018-01-03 10:14 | PCM.PN.NEU ---
Subjective: Staffed in team meeting. Family was not at bedside. With Physical therapy, she is stand by, contact guard with transfers and mobility. She is able to hop on one leg, with the right leg Non-Weight Bearing for about 30 feet using the walker at contact guard. With Occupational therapy, she is able to do all her own personal care. With toileting she is able to do her own care, she needs assistance with pulling up her underwear and pants. With Nursing, her pain is well controlled with her current pain medications, she is sleeping well. Her sutures are to be removed on 01/05 by us with a follow up with Dr. Kam upon discharge home. - Physical Exam General: Alert, Oriented x3, Cooperative HEENT: Atraumatic, PERRLA, EOMI, Normocephalic Neck: Supple, No JVD, Negative Carotid Bruits Lungs: Clear to auscultation, Normal air movement Cardiovascular: Regular rate, No murmurs Abdomen: Bowel Sounds Present, Soft, Non Tender Extremities: No edema, Capillary Refill Less than 3 Seconds Skin: No rashes, No breakdown Musculoskeletal: No Tenderness to Palpation of Joints or Extremities Neurological: Cranial nerves II-XII grossly intact Psych/Mental Status: Normal Affect, Appropriate Vital Signs Temp Pulse Resp BP Pulse Ox 97.3 F L 100 16 135/75 H 100 01/03/18 07:56 01/03/18 07:56 01/03/18 07:56 01/03/18 07:56 01/03/18 07:56 Oxygen Delivery Method Room Air Weight: 74.8 kg Body Mass Index (BMI) 30.2 Intake and Output for Last 24 Hours 01/01/18 01/02/18 01/03/18 23:59 23:59 23:59 Intake Total 480 / 480 600 / 600 120 / 120 Balance 480 / 480 600 / 600 120 / 120 Active Medications Hydrocodone Bitart/Acetaminophen ([place] 5mg-325mg) 1 - 2 tablet PO Q6H PRN PRN PRN Reason: MOD-SEVERE PAIN (4-10/10) Last Admin: 01/03/18 06:35 Dose: 2 tablet Bisacodyl (Dulcolax) 10 mg RECTAL .PRN X 1 PRN PRN Reason: Constipation Carbamazepine (Tegretol) 100 mg PO BIDCM [facility] Last Admin: 01/03/18 07:58 Dose: 100 mg Enoxaparin Sodium (Lovenox) 40 mg SC DAILY@0600 [facility] Last Admin: 01/03/18 05:26 Dose: 40 mg Exemestane (Aromasin) 25 mg PO QHS [facility] Last Admin: 01/02/18 21:04 Dose: 25 mg Gabapentin (Neurontin) 300 mg PO BIDCM [facility] Last Admin: 01/03/18 07:58 Dose: 300 mg Loratadine (Claritin) 10 mg PO DAILY [facility] Last Admin: 01/03/18 07:58 Dose: 10 mg Magnesium Hydroxide (Milk Of Magnesia) 30 ml PO .PRN X 1 PRN PRN Reason: Constipation Melatonin (Melatonin) 5 mg PO QHS [facility] Last Admin: 01/02/18 21:03 Dose: 5 mg Multivitamins/Minerals (Multivitamin With Minerals) 1 tablet PO DAILY@0800 [facility] Last Admin: 01/03/18 07:59 Dose: 1 tablet Pantoprazole Sodium (Protonix) 40 mg PO DAILY [facility] Last Admin: 01/03/18 07:58 Dose: 40 mg Senna/Docusate Sodium (Senokot-S, Carrie-Colace) 2 tablet PO BID [facility] Last Admin: 01/03/18 07:59 Dose: Not Given Medical Necessity - Tobacco Use Smoking Status: Former smoker Assessment/Plan Debility s/p Right ankle fx/orif, complicated by MS, Trigeminal Neuralgia, and depression. goal of rehab is [facility] of functional independence. - PT for gait and balance - OT for adls - PRN analgesics - Bowel protocol - DVT prophylaxis: Lovenox, SCDs, and Zoltan Hoses - Hx TN: continue home dose of GPN 300mg BID, and Tegretol 100mg BID - Hx Relapsing MS: currently in remission patient is not on any medication at present - Hx Left breast Lumpectomy - Hx Depression currently not on medications was on Lexapro - Right ankle ORIF => NWB, in soft cast dressing is C/D/I, Sutures removal on 05 january by rehab team. Follow up with surgeon on discharge from rehab - Patient snores during the night has trouble staying awake during the day, have problems with daily activities due to excessive tiredness, will schedule a PSG once discharge home - Sutures will be removed by the Rehab team on 01/05, patient will follow up with Dr. Kam after discharge home
--- NOTE | 2018-01-03 10:23 | PN.NEURO_ITS ---
Subjective: Staffed in team meeting. Family was not at bedside. With Physical therapy, she is stand by, contact guard with transfers and mobility. She is able to hop on one leg, with the right leg Non-Weight Bearing for about 30 feet using the walker at contact guard. With Occupational therapy, she is able to do all her own personal care. With toileting she is able to do her own care, she needs assistance with pulling up her underwear and pants. With Nursing, her pain is well controlled with her current pain medications, she is sleeping well. Her sutures are to be removed on 01/05 by us with a follow up with Dr. Kam upon discharge home. - Physical Exam General: Alert, Oriented x3, Cooperative HEENT: Atraumatic, PERRLA, EOMI, Normocephalic Neck: Supple, No JVD, Negative Carotid Bruits Lungs: Clear to auscultation, Normal air movement Cardiovascular: Regular rate, No murmurs Abdomen: Bowel Sounds Present, Soft, Non Tender Extremities: No edema, Capillary Refill Less than 3 Seconds Skin: No rashes, No breakdown Musculoskeletal: No Tenderness to Palpation of Joints or Extremities Neurological: Cranial nerves II-XII grossly intact Psych/Mental Status: Normal Affect, Appropriate Vital Signs Temp Pulse Resp BP Pulse Ox 97.3 F L 100 16 135/75 H 100 01/03/18 07:56 01/03/18 07:56 01/03/18 07:56 01/03/18 07:56 01/03/18 07:56 Oxygen Delivery Method Room Air Weight: 74.8 kg Body Mass Index (BMI) 30.2 Intake and Output for Last 24 Hours 01/01/18 01/02/18 01/03/18 23:59 23:59 23:59 Intake Total 480 / 480 600 / 600 120 / 120 Balance 480 / 480 600 / 600 120 / 120 Active Medications Hydrocodone Bitart/Acetaminophen ([place] 5mg-325mg) 1 - 2 tablet PO Q6H PRN PRN PRN Reason: MOD-SEVERE PAIN (4-10/10) Last Admin: 01/03/18 06:35 Dose: 2 tablet Bisacodyl (Dulcolax) 10 mg RECTAL .PRN X 1 PRN PRN Reason: Constipation Carbamazepine (Tegretol) 100 mg PO BIDCM [facility] Last Admin: 01/03/18 07:58 Dose: 100 mg Enoxaparin Sodium (Lovenox) 40 mg SC DAILY@0600 [facility] Last Admin: 01/03/18 05:26 Dose: 40 mg Exemestane (Aromasin) 25 mg PO QHS [facility] Last Admin: 01/02/18 21:04 Dose: 25 mg Gabapentin (Neurontin) 300 mg PO BIDCM [facility] Last Admin: 01/03/18 07:58 Dose: 300 mg Loratadine (Claritin) 10 mg PO DAILY [facility] Last Admin: 01/03/18 07:58 Dose: 10 mg Magnesium Hydroxide (Milk Of Magnesia) 30 ml PO .PRN X 1 PRN PRN Reason: Constipation Melatonin (Melatonin) 5 mg PO QHS [facility] Last Admin: 01/02/18 21:03 Dose: 5 mg Multivitamins/Minerals (Multivitamin With Minerals) 1 tablet PO DAILY@0800 [facility] Last Admin: 01/03/18 07:59 Dose: 1 tablet Pantoprazole Sodium (Protonix) 40 mg PO DAILY [facility] Last Admin: 01/03/18 07:58 Dose: 40 mg Senna/Docusate Sodium (Senokot-S, Carrie-Colace) 2 tablet PO BID [facility] Last Admin: 01/03/18 07:59 Dose: Not Given Medical Necessity - Tobacco Use Smoking Status: Former smoker Assessment/Plan Debility s/p Right ankle fx/orif, complicated by MS, Trigeminal Neuralgia, and depression. goal of rehab is [facility] of functional independence. - PT for gait and balance - OT for adls - PRN analgesics - Bowel protocol - DVT prophylaxis: Lovenox, SCDs, and Zoltan Hoses - Hx TN: continue home dose of GPN 300mg BID, and Tegretol 100mg BID - Hx Relapsing MS: currently in remission patient is not on any medication at present - Hx Left breast Lumpectomy - Hx Depression currently not on medications was on Lexapro - Right ankle ORIF => NWB, in soft cast dressing is C/D/I, Sutures removal on 05 january by rehab team. Follow up with surgeon on discharge from rehab - Patient snores during the night has trouble staying awake during the day, have problems with daily activities due to excessive tiredness, will schedule a PSG once discharge home - Sutures will be removed by the Rehab team on 01/05, patient will follow up with Dr. Kam after discharge home
--- NOTE | 2018-01-03 11:23 | CASEMGMT ---
Team meeting held. Patient present, support person not present. Patient opening to this social media manager contacting patient son about team meeting. No discharge date set at this time. Patient to continue with further care and treatment on the Inpatient Rehab Unit. Patient plans to discharge home with son at time of discharge. Support given. Telephone call to patient son, Corby. Voicemail left for Corby. Will continue to follow. Patient insurance update is due on 01/10/18, patient and patient family aware. Lavinia JONES, EMERGENCY CARE ATTENDANT
--- NOTE | 2018-01-03 12:20 | SLEEP ---
DISCUSSED WITH PATIENT RECOMMENDATION OF PT TO HAVE SLEEP STUDY WHEN DC'D FROM HOSPITAL. EXPLAINED PROCEDURE WELL SUBSEQUENT TREATMENT, IF INDICATED. PT WORRIED ABOUT BURDENING SON WITH TRANSPORTATION TO/FROM APPT, SHE WOULD PREFER TO DO PRIOR TO GOING HOME. SHE FEELS STRONGLY THAT HER SYMPTOMS ARE SOLEY FROM HER MS. I EXPLAINED THE IMPORTANCE OF THE SLEEP STUDY IN REGARD TO CORRECTLY TREATING HER DAYTIME SLEEPINESS. SHE ADMITS SHE FALLS ASLEEP VERY EASILY THROUGHOUT THE DAYTIME. SHE ALSO SAYS HER SPOUSE USED TO TELL HER SHE SNORED AND WOULD STOP BREATHING. SHE IS AGREEABLE TO PROCEEDING WITH OUT PT STUDY WELL TREATING, IF INDICATED, AT THIS TIME. NO DC DATE FROM REHAB HAS BEEN DECIDED AT THIS POINT. COMMUNICATED MY CONVERSATION WITH RN/FLIGHT OPERATIONS COORDINATOR ON REHAB UNIT.
--- NOTE | 2018-01-03 18:10 | PCM.PN.HOSP ---
Subjective: Seen and examined. Patient is on nonweightbearing for right ankle fracture. Patient has below knee cast. Vitals/I&O's: Vital Signs Temp Pulse Resp BP Pulse Ox 97.3 F L 100 16 135/75 H 100 01/03/18 07:56 01/03/18 07:56 01/03/18 07:56 01/03/18 07:56 01/03/18 07:56 Oxygen Delivery Method Room Air Weight: 164 lb 14.492 oz Body Mass Index (BMI) 30.2 Intake and Output for Last 24 Hours 01/01/18 01/02/18 01/03/18 23:59 23:59 23:59 Intake Total 480 / 480 600 / 600 600 / 600 Balance 480 / 480 600 / 600 600 / 600 General: Alert, Oriented x3, Cooperative HEENT: Atraumatic, PERRLA, EOMI, Normocephalic Neck: Supple, No JVD, Negative Carotid Bruits Lungs: Clear to auscultation, Normal air movement, No rhonchi Cardiovascular: Regular rate, Regular Rhythm, Normal S1, Normal S2, No murmurs Abdomen: Bowel Sounds Present, Soft, Non Tender, Non-Distended Extremities: No edema, Capillary Refill Less than 3 Seconds Skin: No rashes, No breakdown Musculoskeletal: Arthritic Changes, - - Right below-knee cast. Neurological: Cranial nerves II-XII grossly intact Psych/Mental Status: Normal Affect, Appropriate Current Medications Hydrocodone Bitart/Acetaminophen ([place] 5mg-325mg) 1 - 2 tablet PO Q6H PRN PRN PRN Reason: MOD-SEVERE PAIN (4-10/10) Last Admin: 01/03/18 12:39 Dose: 2 tablet Bisacodyl (Dulcolax) 10 mg RECTAL .PRN X 1 PRN PRN Reason: Constipation [facility] Last Admin: 01/03/18 17:35 Dose: 100 mg Enoxaparin Sodium (Lovenox) 40 mg SC DAILY@0600 [facility] Last Admin: 01/03/18 05:26 Dose: 40 mg Exemestane (Aromasin) 25 mg PO QHS [facility] Last Admin: 01/02/18 21:04 Dose: 25 mg [facility]in) [facility] Last Admin: 03/26/18 17:35 Dose: 300 mg Loratadine (Claritin) 10 mg PO DAILY [facility] Last Admin: 01/03/18 07:58 Dose: 10 mg Magnesium Hydroxide (Milk Of Magnesia) 30 ml PO .PRN X 1 PRN PRN Reason: Constipation Melatonin (Melatonin) 5 mg PO QHS [facility] Last Admin: 01/02/18 21:03 Dose: 5 mg Multivitamins/Minerals (Multivitamin With Minerals) 1 tablet PO DAILY@0800 [facility] Last Admin: 01/03/18 07:59 Dose: 1 tablet Pantoprazole Sodium (Protonix) 40 mg PO DAILY [facility] Last Admin: 01/03/18 07:58 Dose: 40 mg Senna/Docusate Sodium (Senokot-S, Carrie-Colace) 2 tablet PO BID [facility] Last Admin: 01/03/18 07:59 Dose: Not Given Medical Necessity - Tobacco Use Smoking Status: Former smoker Assessment/Plan 62 year old female with a history of breast cancer, relapsing multiple Sclerosis, sleep apnea, peptic ulcers and depression who is s/p ORIF of her right ankle on 12/24/17 at [facility]. Vital signs are stable. Labs reviewed. 1. status post ORIF of right ankle, undergoing physical therapy; currently on nonweightbearing. 2. Relapsing Multiple Sclerosis, in remission 3. Breast cancer s/p lumpectomy, on exemastane 4. Depression, stable 5. DVT prophylaxis with Lovenox. Code Visit Inpatient E&M: 79737 Subs Hosp L2
[2018-01-03 19:42] VITALS: BP 121/66; PULSE 96; RESP 16; TEMP 36.7; O2SAT 93
[2018-01-03] MEDS: MELATONIN 10 MG TABLET 5 MG PO (20:51)
[2018-01-03] MEDS: Senna/Docusate Sodium 1 Tablet 2 TABLET PO (20:51)
--- NOTE | 2018-01-04 01:43 | NURSING ---
Reviewed and agree with HEARING STENOGRAPHER documentation and FIMS charting.
[2018-01-04] MEDS: Enoxaparin 40 MG/0.4 ML Syringe SC (05:26)
--- NOTE | 2018-01-04 06:14 | NURSING ---
Staff offered to assist with ADLs this AM, pt refused stating I want to stay in bed and sleep. Pt returned to bed after using BSC, OT will incorporate ADLS with therapy this AM.
[2018-01-04] MEDS: carBAMazepine 200 MG Tablet 100 MG PO ×2 (08:02→16:30)
[2018-01-04] MEDS: Senna/Docusate Sodium 1 Tablet 2 TABLET PO ×2 (08:03→21:11)
[2018-01-04] MEDS: Pantoprazole Sodium 40 MG Tablet PO (08:03)
[2018-01-04] MEDS: Gabapentin 300 MG Capsule PO ×2 (08:03→16:31)
[2018-01-04] MEDS: Loratadine 10 MG Tablet PO (08:03)
[2018-01-04] MEDS: Multivitamins,Ther W-Minerals Tablet 1 TABLET PO (08:04)
[2018-01-04] MEDS: HYDROcodone Bitartrate/Apap 5/325 Tablet PO ×3 (08:04→23:00)
[2018-01-04 08:36] VITALS: BP 124/71; PULSE 91; RESP 17; TEMP 36.5; O2SAT 99
--- NOTE | 2018-01-04 12:10 | PCM.PN.NEU ---
Subjective: Patient seen and examined. Tolerating therapy. Incision dressing is C/D/I, Sutures are scheduled for removal on 01/05 by rehab staff. No issues with GI/. - Physical Exam General: Alert, Oriented x3, Cooperative HEENT: Atraumatic, PERRLA, EOMI, Normocephalic Neck: Supple, No JVD, Negative Carotid Bruits Lungs: Clear to auscultation, Normal air movement Cardiovascular: Regular rate, No murmurs Abdomen: Bowel Sounds Present, Soft, Non Tender Extremities: No edema, Capillary Refill Less than 3 Seconds Skin: No rashes, No breakdown Musculoskeletal: No Tenderness to Palpation of Joints or Extremities Neurological: Cranial nerves II-XII grossly intact Psych/Mental Status: Normal Affect, Appropriate Vital Signs Temp Pulse Resp BP Pulse Ox 97.7 F L 91 17 124/71 H 99 01/04/18 08:36 01/04/18 08:36 01/04/18 08:36 01/04/18 08:36 01/04/18 08:36 Oxygen Delivery Method Room Air Weight: 74.8 kg Body Mass Index (BMI) 30.2 Intake and Output for Last 24 Hours 01/02/18 01/03/18 01/04/18 23:59 23:59 23:59 Intake Total 600 / 600 600 / 600 220 / 220 Balance 600 / 600 600 / 600 220 / 220 Active Medications Hydrocodone Bitart/Acetaminophen ([place] 5mg-325mg) 1 - 2 tablet PO Q6H PRN PRN PRN Reason: MOD-SEVERE PAIN (4-10/10) Last Admin: 01/04/18 08:04 Dose: 2 tablet Bisacodyl (Dulcolax) 10 mg RECTAL .PRN X 1 PRN PRN Reason: Constipation Carbamazepine (Tegretol) 100 mg PO BIDCM [facility] Last Admin: 01/04/18 08:02 Dose: 100 mg Enoxaparin Sodium (Lovenox) 40 mg SC DAILY@0600 [facility] Last Admin: 01/04/18 05:26 Dose: 40 mg Exemestane (Aromasin) 25 mg PO QHS [facility] Last Admin: 01/03/18 20:49 Dose: 25 mg Gabapentin (Neurontin) 300 mg PO BIDCM [facility] Last Admin: 01/04/18 08:03 Dose: 300 mg Loratadine (Claritin) 10 mg PO DAILY [facility] Last Admin: 01/04/18 08:03 Dose: 10 mg Magnesium Hydroxide (Milk Of Magnesia) 30 ml PO .PRN X 1 PRN PRN Reason: Constipation Melatonin (Melatonin) 5 mg PO QHS [facility] Last Admin: 01/03/18 20:51 Dose: 5 mg Multivitamins/Minerals (Multivitamin With Minerals) 1 tablet PO DAILY@0800 [facility] Last Admin: 01/04/18 08:04 Dose: 1 tablet Pantoprazole Sodium (Protonix) 40 mg PO DAILY [facility] Last Admin: 01/04/18 08:03 Dose: 40 mg Senna/Docusate Sodium (Senokot-S, Carrie-Colace) 2 tablet PO BID [facility] Last Admin: 01/04/18 08:03 Dose: 2 tablet Medical Necessity - Tobacco Use Smoking Status: Former smoker Assessment/Plan Debility s/p Right ankle fx/orif, complicated by MS, Trigeminal Neuralgia, and depression. goal of rehab is gnosticism of functional independence. - PT for gait and balance - OT for adls - PRN analgesics - Bowel protocol - DVT prophylaxis: Lovenox, SCDs, and Zoltan Hoses - Hx [place]: continue home dose of GPN 300mg BID, and Tegretol 100mg BID - Hx Relapsing MS: currently in remission patient is not on any medication at present - Hx Left breast Lumpectomy - Hx Depression currently not on medications was on Lexapro - Right ankle ORIF => NWB, in soft cast dressing is C/D/I, Sutures removal on 05 january by rehab team. Follow up with surgeon on discharge from rehab - Patient snores during the night has trouble staying awake during the day, have problems with daily activities due to excessive tiredness, will schedule a PSG once discharge home - Sutures will be removed by the Rehab team on 01/05, patient will follow up with Dr. Kam after discharge home
[2018-01-04 19:42] VITALS: BP 117/59; PULSE 94; RESP 18; TEMP 36.7; O2SAT 96
[2018-01-04] MEDS: MELATONIN 10 MG TABLET 5 MG PO (21:11)
--- NOTE | 2018-01-05 01:04 | NURSING ---
Reviewed and agree with [facility] documentation and [facility] charting.
[2018-01-05] MEDS: Enoxaparin 40 MG/0.4 ML Syringe SC (05:21)
[2018-01-05] MEDS: HYDROcodone Bitartrate/Apap 5/325 Tablet PO ×2 (05:36→19:43)
--- NOTE | 2018-01-05 06:35 | NURSING ---
Dressing changed to RLE as per order, 22 sutures removed without difficulty, area cleansed and re-dressed with NS and DSD. Splint reapplied and secured with CHRIS wrap. Pt tolerated procedure fair. Will notify wound nurse of macerated skin to rt inner ankle.
[2018-01-05] MEDS: Gabapentin 300 MG Capsule PO ×2 (07:51→18:13)
[2018-01-05] MEDS: Multivitamins,Ther W-Minerals Tablet 1 TABLET PO (07:51)
[2018-01-05] MEDS: Senna/Docusate Sodium 1 Tablet 2 TABLET PO ×2 (07:51→20:58)
[2018-01-05] MEDS: Loratadine 10 MG Tablet PO (07:51)
[2018-01-05] MEDS: Pantoprazole Sodium 40 MG Tablet PO (07:51)
[2018-01-05] MEDS: carBAMazepine 200 MG Tablet 100 MG PO ×2 (07:52→18:13)
--- NOTE | 2018-01-05 09:45 | PCM.PN.NEU ---
Subjective: Patient seen and examined. Tolerating therapy. Sutures removed from right outer ankle without difficulty ~ 20 sutures, incision C/D/I, the suture located on the inner ankle appeared to be macerated wound nurse was consulted. The patient feels the pain is well controlled on the current pain medication. No issues with GI/. - Physical Exam General: Alert, Oriented x3, Cooperative HEENT: Atraumatic, PERRLA, EOMI, Normocephalic Neck: Supple, No JVD, Negative Carotid Bruits Lungs: Clear to auscultation, Normal air movement Cardiovascular: Regular rate, No murmurs Abdomen: Bowel Sounds Present, Soft, Non Tender Extremities: No edema, Capillary Refill Less than 3 Seconds, - - NWB right leg, splint intact Skin: No rashes, No breakdown, - Musculoskeletal: No Tenderness to Palpation of Joints or Extremities, - Neurological: Cranial nerves II-XII grossly intact Psych/Mental Status: Normal Affect, Appropriate Vital Signs Temp Pulse Resp BP Pulse Ox 98.0 F 94 18 117/59 L 96 01/04/18 19:42 01/04/18 19:42 01/04/18 19:42 01/04/18 19:42 01/04/18 19:42 Oxygen Delivery Method Room Air Weight: 72 kg Body Mass Index (BMI) 30.2 Intake and Output for Last 24 Hours 01/03/18 01/04/18 01/05/18 23:59 23:59 23:59 Intake Total 600 / 600 940 / 940 240 / 240 Balance 600 / 600 940 / 940 240 / 240 Active Medications Hydrocodone Bitart/Acetaminophen ([place] 5mg-325mg) 1 - 2 tablet PO Q6H PRN PRN PRN Reason: MOD-SEVERE PAIN (4-10/10) Last Admin: 01/05/18 05:36 Dose: 2 tablet Bisacodyl (Dulcolax) 10 mg RECTAL .PRN X 1 PRN PRN Reason: Constipation Carbamazepine (Tegretol) 100 mg PO BIDCM [facility] Last Admin: 01/05/18 07:52 Dose: 100 mg Enoxaparin Sodium (Lovenox) 40 mg SC DAILY@0600 [facility] Last Admin: 01/05/18 05:21 Dose: 40 mg Exemestane (Aromasin) 25 mg PO QHS [facility] Last Admin: 01/04/18 21:10 Dose: 25 mg Gabapentin (Neurontin) 300 mg PO BIDCM [facility] Last Admin: 01/05/18 07:51 Dose: 300 mg Loratadine (Claritin) 10 mg PO DAILY [facility] Last Admin: 01/05/18 07:51 Dose: 10 mg Magnesium Hydroxide (Milk Of Magnesia) 30 ml PO .PRN X 1 PRN PRN Reason: Constipation Melatonin (Melatonin) 5 mg PO QHS [facility] Last Admin: 01/04/18 21:11 Dose: 5 mg Multivitamins/Minerals (Multivitamin With Minerals) 1 tablet PO DAILY@0800 [facility] Last Admin: 01/05/18 07:51 Dose: 1 tablet Pantoprazole Sodium (Protonix) 40 mg PO DAILY [facility] Last Admin: 01/05/18 07:51 Dose: 40 mg Senna/Docusate Sodium (Senokot-S, Carrie-Colace) 2 tablet PO BID [facility] Last Admin: 01/05/18 07:51 Dose: 2 tablet Medical Necessity - Tobacco Use Smoking Status: Former smoker Assessment/Plan Debility s/p Right ankle fx/orif, complicated by MS, Trigeminal Neuralgia, and depression. goal of rehab is restorationist of functional independence. - PT for gait and balance - OT for adls - PRN analgesics - Bowel protocol - DVT prophylaxis: Lovenox, SCDs, and Zoltan Hoses - Hx [place]: continue home dose of GPN 300mg BID, and Tegretol 100mg BID - Hx Relapsing MS: currently in remission patient is not on any medication at present - Hx Left breast Lumpectomy - Hx Depression currently not on medications was on Lexapro - Right ankle ORIF => NWB, in soft cast dressing is C/D/I, Sutures removal on 05 january by rehab team. Follow up with surgeon on discharge from rehab - Patient snores during the night has trouble staying awake during the day, have problems with daily activities due to excessive tiredness, will schedule a PSG once discharge home - Sutures on the outer ankle (~20) removed, incision C/D/I, inner ankle suture (1) was not removed, appeared macerated, wound care nurse consulted to look at area, ankle was re-splinted and hedy wrapped.
--- NOTE | 2018-01-05 09:58 | PN.NEURO_ITS ---
Subjective: Patient seen and examined. Tolerating therapy. Sutures removed from right outer ankle without difficulty ~ 20 sutures, incision C/D/I, the suture located on the inner ankle appeared to be macerated wound nurse was consulted. The patient feels the pain is well controlled on the current pain medication. No issues with GI/. - Physical Exam General: Alert, Oriented x3, Cooperative HEENT: Atraumatic, PERRLA, EOMI, Normocephalic Neck: Supple, No JVD, Negative Carotid Bruits Lungs: Clear to auscultation, Normal air movement Cardiovascular: Regular rate, No murmurs Abdomen: Bowel Sounds Present, Soft, Non Tender Extremities: No edema, Capillary Refill Less than 3 Seconds, - - NWB right leg, splint intact Skin: No rashes, No breakdown, - Musculoskeletal: No Tenderness to Palpation of Joints or Extremities, - Neurological: Cranial nerves II-XII grossly intact Psych/Mental Status: Normal Affect, Appropriate Vital Signs Temp Pulse Resp BP Pulse Ox 98.0 F 94 18 117/59 L 96 01/04/18 19:42 01/04/18 19:42 01/04/18 19:42 01/04/18 19:42 01/04/18 19:42 Oxygen Delivery Method Room Air Weight: 72 kg Body Mass Index (BMI) 30.2 Intake and Output for Last 24 Hours 01/03/18 01/04/18 01/05/18 23:59 23:59 23:59 Intake Total 600 / 600 940 / 940 240 / 240 Balance 600 / 600 940 / 940 240 / 240 Active Medications Hydrocodone Bitart/Acetaminophen ([place] 5mg-325mg) 1 - 2 tablet PO Q6H PRN PRN PRN Reason: MOD-SEVERE PAIN (4-10/10) Last Admin: 01/05/18 05:36 Dose: 2 tablet Bisacodyl (Dulcolax) 10 mg RECTAL .PRN X 1 PRN PRN Reason: Constipation Carbamazepine (Tegretol) 100 mg PO BIDCM [facility] Last Admin: 01/05/18 07:52 Dose: 100 mg Enoxaparin Sodium (Lovenox) 40 mg SC DAILY@0600 [facility] Last Admin: 01/05/18 05:21 Dose: 40 mg Exemestane (Aromasin) 25 mg PO QHS [facility] Last Admin: 01/04/18 21:10 Dose: 25 mg Gabapentin (Neurontin) 300 mg PO BIDCM [facility] Last Admin: 01/05/18 07:51 Dose: 300 mg Loratadine (Claritin) 10 mg PO DAILY [facility] Last Admin: 01/05/18 07:51 Dose: 10 mg Magnesium Hydroxide (Milk Of Magnesia) 30 ml PO .PRN X 1 PRN PRN Reason: Constipation Melatonin (Melatonin) 5 mg PO QHS [facility] Last Admin: 01/04/18 21:11 Dose: 5 mg Multivitamins/Minerals (Multivitamin With Minerals) 1 tablet PO DAILY@0800 [facility] Last Admin: 01/05/18 07:51 Dose: 1 tablet Pantoprazole Sodium (Protonix) 40 mg PO DAILY [facility] Last Admin: 01/05/18 07:51 Dose: 40 mg Senna/Docusate Sodium (Senokot-S, Carrie-Colace) 2 tablet PO BID [facility] Last Admin: 01/05/18 07:51 Dose: 2 tablet Medical Necessity - Tobacco Use Smoking Status: Former smoker Assessment/Plan Debility s/p Right ankle fx/orif, complicated by MS, Trigeminal Neuralgia, and depression. goal of rehab is voodoo of functional independence. - PT for gait and balance - OT for adls - PRN analgesics - Bowel protocol - DVT prophylaxis: Lovenox, SCDs, and Zoltan Hoses - Hx [place]: continue home dose of GPN 300mg BID, and Tegretol 100mg BID - Hx Relapsing MS: currently in remission patient is not on any medication at present - Hx Left breast Lumpectomy - Hx Depression currently not on medications was on Lexapro - Right ankle ORIF => NWB, in soft cast dressing is C/D/I, Sutures removal on 05 january by rehab team. Follow up with surgeon on discharge from rehab - Patient snores during the night has trouble staying awake during the day, have problems with daily activities due to excessive tiredness, will schedule a PSG once discharge home - Sutures on the outer ankle (~20) removed, incision C/D/I, inner ankle suture (1) was not removed, appeared macerated, wound care nurse consulted to look at area, ankle was re-splinted and hedy wrapped.
[2018-01-05 10:00] VITALS: BP 127/75; PULSE 82; RESP 16; TEMP 36.4; O2SAT 96
[2018-01-05 19:35] VITALS: BP 114/63; PULSE 97; RESP 16; TEMP 36.6; O2SAT 95
[2018-01-05] MEDS: MELATONIN 10 MG TABLET 5 MG PO (20:58)
[2018-01-06] MEDS: Enoxaparin 40 MG/0.4 ML Syringe SC (05:31)
[2018-01-06] MEDS: HYDROcodone Bitartrate/Apap 5/325 Tablet PO (05:42)
[2018-01-06 07:37] VITALS: BP 137/77; PULSE 95; RESP 18; TEMP 36.6; O2SAT 96
[2018-01-06] MEDS: carBAMazepine 200 MG Tablet 100 MG PO ×2 (07:58→16:40)
[2018-01-06] MEDS: Gabapentin 300 MG Capsule PO ×2 (07:58→16:40)
[2018-01-06] MEDS: Pantoprazole Sodium 40 MG Tablet PO (07:58)
[2018-01-06] MEDS: Loratadine 10 MG Tablet PO (07:58)
[2018-01-06] MEDS: Multivitamins,Ther W-Minerals Tablet 1 TABLET PO (07:58)
[2018-01-06] MEDS: Senna/Docusate Sodium 1 Tablet 2 TABLET PO ×2 (07:58→20:20)
--- NOTE | 2018-01-06 10:37 | PCM.PN.NEU ---
Subjective: Patient seen and examined. Tolerating therapy. the incision on her right ankle the inner incision is melodie nicely, it is well approximated C/D/I, there is no redness or swelling along the incision line. The outer incision has no drainage but does appear to be macerated, there is no open skin, the incision is well approximated, applied adaptive to the site with dressing change twice a day, will notified the surgeon, of the condition of the outer incision site. Pain is well controlled per patient. Tolerating regular diet, no issues with GI/. - Physical Exam General: Alert, Oriented x3, Cooperative HEENT: Atraumatic, PERRLA, EOMI, Normocephalic Neck: Supple, No JVD, Negative Carotid Bruits Lungs: Clear to auscultation, Normal air movement Cardiovascular: Regular rate, No murmurs Abdomen: Bowel Sounds Present, Soft, Non Tender Extremities: No edema, Capillary Refill Less than 3 Seconds Skin: No rashes, No breakdown Musculoskeletal: No Tenderness to Palpation of Joints or Extremities Neurological: Cranial nerves II-XII grossly intact Psych/Mental Status: Normal Affect, Appropriate Vital Signs Temp Pulse Resp BP Pulse Ox 97.9 F 95 18 137/77 H 96 01/06/18 07:37 01/06/18 07:37 01/06/18 07:37 01/06/18 07:37 01/06/18 07:37 Oxygen Delivery Method Room Air Weight: 72 kg Body Mass Index (BMI) 30.2 Intake and Output for Last 24 Hours 01/04/18 01/05/18 01/06/18 23:59 23:59 23:59 Intake Total 940 / 940 720 / 720 Balance 940 / 940 720 / 720 Active Medications Hydrocodone Bitart/Acetaminophen ([place] 5mg-325mg) 1 - 2 tablet PO Q6H PRN PRN PRN Reason: MOD-SEVERE PAIN (4-10/10) Last Admin: 01/06/18 05:42 Dose: 2 tablet Bisacodyl (Dulcolax) 10 mg RECTAL .PRN X 1 PRN PRN Reason: Constipation Carbamazepine (Tegretol) 100 mg PO BIDCM [facility] Last Admin: 01/06/18 07:58 Dose: 100 mg Enoxaparin Sodium (Lovenox) 40 mg SC DAILY@0600 [facility] Last Admin: 01/06/18 05:31 Dose: 40 mg Exemestane (Aromasin) 25 mg PO QHS [facility] Last Admin: 01/05/18 20:59 Dose: 25 mg Gabapentin (Neurontin) 300 mg PO BIDCM [facility] Last Admin: 01/06/18 07:58 Dose: 300 mg Loratadine (Claritin) 10 mg PO DAILY [facility] Last Admin: 01/06/18 07:58 Dose: 10 mg Magnesium Hydroxide (Milk Of Magnesia) 30 ml PO .PRN X 1 PRN PRN Reason: Constipation Melatonin (Melatonin) 5 mg PO QHS [facility] Last Admin: 01/05/18 20:58 Dose: 5 mg Multivitamins/Minerals (Multivitamin With Minerals) 1 tablet PO DAILY@0800 [facility] Last Admin: 01/06/18 07:58 Dose: 1 tablet Nutritional Formula ([place] - [place] Flavor) [facility] Pantoprazole Sodium (Protonix) 40 mg PO DAILY [facility] Last Admin: 01/06/18 07:58 Dose: 40 mg Senna/Docusate Sodium (Senokot-S, Carrie-Colace) 2 tablet PO BID [facility] Last Admin: 01/06/18 07:58 Dose: 2 tablet Medical Necessity - Tobacco Use Smoking Status: Former smoker Assessment/Plan Debility s/p Right ankle fx/orif, complicated by MS, Trigeminal Neuralgia, and depression. goal of rehab is rastafari of functional independence. - PT for gait and balance - OT for adls - PRN analgesics - Bowel protocol - DVT prophylaxis: Lovenox, SCDs, and Zoltan Hoses - Hx [place]: continue home dose of GPN 300mg BID, and Tegretol 100mg BID - Hx Relapsing MS: currently in remission patient is not on any medication at present - Hx Left breast Lumpectomy - Hx Depression currently not on medications was on Lexapro - Right ankle ORIF => NWB, in soft cast dressing is C/D/I, Sutures removal on 05 january by rehab team. Follow up with surgeon on discharge from rehab - Patient snores during the night has trouble staying awake during the day, have problems with daily activities due to excessive tiredness, will schedule a PSG once discharge home - Sutures on the outer ankle (~20) removed, incision C/D/I, inner ankle suture site, appeared macerated, will let the surgeon know, the ankle was re-splinted and hedy wrapped. For now will apply adaptive to site will change dressing daily.
--- NOTE | 2018-01-06 10:46 | PN.NEURO_ITS ---
Subjective: Patient seen and examined. Tolerating therapy. the incision on her right ankle the inner incision is melodie nicely, it is well approximated C/D/I, there is no redness or swelling along the incision line. The outer incision has no drainage but does appear to be macerated, there is no open skin, the incision is well approximated, applied adaptive to the site with dressing change twice a day, will notified the surgeon, of the condition of the outer incision site. Pain is well controlled per patient. Tolerating regular diet, no issues with GI/. - Physical Exam General: Alert, Oriented x3, Cooperative HEENT: Atraumatic, PERRLA, EOMI, Normocephalic Neck: Supple, No JVD, Negative Carotid Bruits Lungs: Clear to auscultation, Normal air movement Cardiovascular: Regular rate, No murmurs Abdomen: Bowel Sounds Present, Soft, Non Tender Extremities: No edema, Capillary Refill Less than 3 Seconds Skin: No rashes, No breakdown Musculoskeletal: No Tenderness to Palpation of Joints or Extremities Neurological: Cranial nerves II-XII grossly intact Psych/Mental Status: Normal Affect, Appropriate Vital Signs Temp Pulse Resp BP Pulse Ox 97.9 F 95 18 137/77 H 96 01/06/18 07:37 01/06/18 07:37 01/06/18 07:37 01/06/18 07:37 01/06/18 07:37 Oxygen Delivery Method Room Air Weight: 72 kg Body Mass Index (BMI) 30.2 Intake and Output for Last 24 Hours 01/04/18 01/05/18 01/06/18 23:59 23:59 23:59 Intake Total 940 / 940 720 / 720 Balance 940 / 940 720 / 720 Active Medications Hydrocodone Bitart/Acetaminophen ([place] 5mg-325mg) 1 - 2 tablet PO Q6H PRN PRN PRN Reason: MOD-SEVERE PAIN (4-10/10) Last Admin: 01/06/18 05:42 Dose: 2 tablet Bisacodyl (Dulcolax) 10 mg RECTAL .PRN X 1 PRN PRN Reason: Constipation Carbamazepine (Tegretol) 100 mg PO BIDCM [facility] Last Admin: 01/06/18 07:58 Dose: 100 mg Enoxaparin Sodium (Lovenox) 40 mg SC DAILY@0600 [facility] Last Admin: 01/06/18 05:31 Dose: 40 mg Exemestane (Aromasin) 25 mg PO QHS [facility] Last Admin: 01/05/18 20:59 Dose: 25 mg Gabapentin (Neurontin) 300 mg PO BIDCM [facility] Last Admin: 01/06/18 07:58 Dose: 300 mg Loratadine (Claritin) 10 mg PO DAILY [facility] Last Admin: 01/06/18 07:58 Dose: 10 mg Magnesium Hydroxide (Milk Of Magnesia) 30 ml PO .PRN X 1 PRN PRN Reason: Constipation Melatonin (Melatonin) 5 mg PO QHS [facility] Last Admin: 01/05/18 20:58 Dose: 5 mg Multivitamins/Minerals (Multivitamin With Minerals) 1 tablet PO DAILY@0800 [facility] Last Admin: 01/06/18 07:58 Dose: 1 tablet Nutritional Formula ([place] - [place] Flavor) [facility] Pantoprazole Sodium (Protonix) 40 mg PO DAILY [facility] Last Admin: 01/06/18 07:58 Dose: 40 mg Senna/Docusate Sodium (Senokot-S, Carrie-Colace) 2 tablet PO BID [facility] Last Admin: 01/06/18 07:58 Dose: 2 tablet Medical Necessity - Tobacco Use Smoking Status: Former smoker Assessment/Plan Debility s/p Right ankle fx/orif, complicated by MS, Trigeminal Neuralgia, and depression. goal of rehab is faith of functional independence. - PT for gait and balance - OT for adls - PRN analgesics - Bowel protocol - DVT prophylaxis: Lovenox, SCDs, and Zoltan Hoses - Hx [place]: continue home dose of GPN 300mg BID, and Tegretol 100mg BID - Hx Relapsing MS: currently in remission patient is not on any medication at present - Hx Left breast Lumpectomy - Hx Depression currently not on medications was on Lexapro - Right ankle ORIF => NWB, in soft cast dressing is C/D/I, Sutures removal on 05 january by rehab team. Follow up with surgeon on discharge from rehab - Patient snores during the night has trouble staying awake during the day, have problems with daily activities due to excessive tiredness, will schedule a PSG once discharge home - Sutures on the outer ankle (~20) removed, incision C/D/I, inner ankle suture site, appeared macerated, will let the surgeon know, the ankle was re-splinted and hedy wrapped. For now will apply adaptive to site will change dressing daily.
--- NOTE | 2018-01-06 11:11 | NURSING ---
spoke with dr katz aware of right medial ankle and applying adaptic ok per dr katz.
--- NOTE | 2018-01-06 17:02 | PCM.PN.HOSP ---
Subjective: Seen and examined. Patient has right lower leg, JUST Short of toes on below-knee cast with Oniel wrap bandage. As per the rehab note, dressing was changed and no redness or swelling noticed along surgical wound. No fever/chills. No tachycardia. Vitals/I&O's: Vital Signs Temp Pulse Resp BP Pulse Ox 97.9 F 95 18 137/77 H 96 01/06/18 07:37 01/06/18 07:37 01/06/18 07:37 01/06/18 07:37 01/06/18 07:37 Oxygen Delivery Method Room Air Weight: 158 lb 11.725 oz Body Mass Index (BMI) 30.2 Intake and Output for Last 24 Hours 01/04/18 01/05/18 01/06/18 23:59 23:59 23:59 Intake Total 940 / 940 720 / 720 320 / 320 Balance 940 / 940 720 / 720 320 / 320 General: Alert, Oriented x3, Cooperative HEENT: Atraumatic, PERRLA, EOMI, Normocephalic Neck: Supple, No JVD, Negative Carotid Bruits Lungs: Clear to auscultation, Normal air movement Cardiovascular: Regular rate, Regular Rhythm, Normal S1, Normal S2, No murmurs Abdomen: Bowel Sounds Present, Soft, Non Tender Extremities: Capillary Refill Less than 3 Seconds, - - Right lower leg on below-knee cast with Oniel wrap bandage Skin: Ulcer/ Wound - Surgical wound as mentioned above Musculoskeletal: No Tenderness to Palpation of Joints or Extremities Neurological: Cranial nerves II-XII grossly intact Psych/Mental Status: Normal Affect, Appropriate Current Medications Hydrocodone Bitart/Acetaminophen ([place] 5mg-325mg) 1 - 2 tablet PO Q6H PRN PRN PRN Reason: MOD-SEVERE PAIN (4-10/10) Last Admin: 01/06/18 05:42 Dose: 2 tablet Bisacodyl (Dulcolax) 10 mg RECTAL .PRN X 1 PRN PRN Reason: Constipation Carbamazepine (Tegretol) 100 mg PO BIDCM [facility] Last Admin: 01/06/18 16:40 Dose: 100 mg Enoxaparin Sodium (Lovenox) 40 mg SC DAILY@0600 [facility] Last Admin: 01/06/18 05:31 Dose: 40 mg Exemestane (Aromasin) 25 mg PO QHS [facility] Last Admin: 01/05/18 20:59 Dose: 25 mg Gabapentin (Neurontin) 300 mg PO BIDCM [facility] Last Admin: 01/06/18 16:40 Dose: 300 mg Loratadine (Claritin) 10 mg PO DAILY [facility] Last Admin: 01/06/18 07:58 Dose: 10 mg Magnesium Hydroxide (Milk Of Magnesia) 30 ml PO .PRN X 1 PRN PRN Reason: Constipation Melatonin (Melatonin) 5 mg PO QHS [facility] Last Admin: 01/05/18 20:58 Dose: 5 mg Multivitamins/Minerals (Multivitamin With Minerals) 1 tablet PO DAILY@0800 [facility] Last Admin: 01/06/18 07:58 Dose: 1 tablet Nutritional Formula (Mckinley - [place] Flavor) [facility] Last Admin: 01/06/18 16:40 Dose: 1 packet Pantoprazole Sodium (Protonix) 40 mg PO DAILY [facility] Last Admin: 01/06/18 07:58 Dose: 40 mg Senna/Docusate Sodium (Senokot-S, Carrie-Colace) 2 tablet PO BID [facility] Last Admin: 01/06/18 07:58 Dose: 2 tablet Medical Necessity - Tobacco Use Smoking Status: Former smoker Assessment/Plan 62 year old female with a history of breast cancer, relapsing multiple Sclerosis, sleep apnea, peptic ulcers and depression who is s/p ORIF of her right ankle on 12/24/17 at [facility]. Vital signs are stable. Labs reviewed. 1. status post ORIF of right ankle, undergoing physical therapy; currently on nonweightbearing. Dressing change as per the surgeon recommendation. 2. Relapsing Multiple Sclerosis, in remission 3. Breast cancer s/p lumpectomy, on exemastane 4. Depression, stable 5. DVT prophylaxis with Lovenox. Code Visit Inpatient E&M: 58085 Subs Hosp L2
--- NOTE | 2018-01-06 17:06 | PN_ITS ---
Subjective: Seen and examined. Patient has right lower leg, JUST Short of toes on below- knee cast with Oniel wrap bandage. As per the rehab note, dressing was changed and no redness or swelling noticed along surgical wound. No fever/chills. No tachycardia. Vitals/I&O's: Vital Signs Temp Pulse Resp BP Pulse Ox 97.9 F 95 18 137/77 H 96 01/06/18 07:37 01/06/18 07:37 01/06/18 07:37 01/06/18 07:37 01/06/18 07:37 Oxygen Delivery Method Room Air Weight: 158 lb 11.725 oz Body Mass Index (BMI) 30.2 Intake and Output for Last 24 Hours 01/04/18 01/05/18 01/06/18 23:59 23:59 23:59 Intake Total 940 / 940 720 / 720 320 / 320 Balance 940 / 940 720 / 720 320 / 320 General: Alert, Oriented x3, Cooperative HEENT: Atraumatic, PERRLA, EOMI, Normocephalic Neck: Supple, No JVD, Negative Carotid Bruits Lungs: Clear to auscultation, Normal air movement Cardiovascular: Regular rate, Regular Rhythm, Normal S1, Normal S2, No murmurs Abdomen: Bowel Sounds Present, Soft, Non Tender Extremities: Capillary Refill Less than 3 Seconds, - - Right lower leg on below- knee cast with Oniel wrap bandage Skin: Ulcer/ Wound - Surgical wound as mentioned above Musculoskeletal: No Tenderness to Palpation of Joints or Extremities Neurological: Cranial nerves II-XII grossly intact Psych/Mental Status: Normal Affect, Appropriate Current Medications Hydrocodone Bitart/Acetaminophen ([place] 5mg-325mg) 1 - 2 tablet PO Q6H PRN PRN PRN Reason: MOD-SEVERE PAIN (4-10/10) Last Admin: 01/06/18 05:42 Dose: 2 tablet Bisacodyl (Dulcolax) 10 mg RECTAL .PRN X 1 PRN PRN Reason: Constipation Carbamazepine (Tegretol) 100 mg PO BIDCM [facility] Last Admin: 01/06/18 16:40 Dose: 100 mg Enoxaparin Sodium (Lovenox) 40 mg SC DAILY@0600 [facility] Last Admin: 01/06/18 05:31 Dose: 40 mg Exemestane (Aromasin) 25 mg PO QHS [facility] Last Admin: 01/05/18 20:59 Dose: 25 mg Gabapentin (Neurontin) 300 mg PO BIDCM [facility] Last Admin: 01/06/18 16:40 Dose: 300 mg Loratadine (Claritin) 10 mg PO DAILY [facility] Last Admin: 01/06/18 07:58 Dose: 10 mg Magnesium Hydroxide (Milk Of Magnesia) 30 ml PO .PRN X 1 PRN PRN Reason: Constipation Melatonin (Melatonin) 5 mg PO QHS [facility] Last Admin: 01/05/18 20:58 Dose: 5 mg Multivitamins/Minerals (Multivitamin With Minerals) 1 tablet PO DAILY@0800 [facility] Last Admin: 01/06/18 07:58 Dose: 1 tablet Nutritional Formula (Mckinley - [place] Flavor) [facility] Last Admin: 01/06/18 16:40 Dose: 1 packet Pantoprazole Sodium (Protonix) 40 mg PO DAILY [facility] Last Admin: 01/06/18 07:58 Dose: 40 mg Senna/Docusate Sodium (Senokot-S, Carrie-Colace) 2 tablet PO BID [facility] Last Admin: 01/06/18 07:58 Dose: 2 tablet Medical Necessity - Tobacco Use Smoking Status: Former smoker Assessment/Plan 62 year old female with a history of breast cancer, relapsing multiple Sclerosis , sleep apnea, peptic ulcers and depression who is s/p ORIF of her right ankle on 12/24/17 at [facility]. Vital signs are stable. Labs reviewed. 1. status post ORIF of right ankle, undergoing physical therapy; currently on nonweightbearing. Dressing change as per the surgeon recommendation. 2. Relapsing Multiple Sclerosis, in remission 3. Breast cancer s/p lumpectomy, on exemastane 4. Depression, stable 5. DVT prophylaxis with Lovenox. Code Visit Inpatient E&M: 42962 Subs Hosp L2
[2018-01-06 19:56] VITALS: BP 138/66; PULSE 90; RESP 18; TEMP 36.6; O2SAT 95
[2018-01-06] MEDS: MELATONIN 10 MG TABLET 5 MG PO (20:17)
--- NOTE | 2018-01-07 04:09 | NURSING ---
Pt had visit from 2 older sisters this hs. Sisters found after visiting hours in room and reminded of Rehab visiting hours. One sister asked nurse to take her VS and request denied. These visitors were asked to leave to enable evening care and rest to be provided for pt.
[2018-01-07] MEDS: Enoxaparin 40 MG/0.4 ML Syringe SC (06:26)
[2018-01-07] MEDS: Pantoprazole Sodium 40 MG Tablet PO (08:04)
[2018-01-07] MEDS: Senna/Docusate Sodium 1 Tablet 2 TABLET PO (08:04)
[2018-01-07] MEDS: Loratadine 10 MG Tablet PO (08:05)
[2018-01-07] MEDS: Gabapentin 300 MG Capsule PO ×2 (08:05→16:16)
[2018-01-07] MEDS: HYDROcodone Bitartrate/Apap 5/325 Tablet PO ×2 (08:05→21:18)
[2018-01-07] MEDS: Multivitamins,Ther W-Minerals Tablet 1 TABLET PO (08:05)
[2018-01-07] MEDS: carBAMazepine 200 MG Tablet 100 MG PO ×2 (08:06→16:16)
[2018-01-07 08:12] VITALS: BP 136/73; PULSE 102; RESP 17; TEMP 36.5; O2SAT 97
--- NOTE | 2018-01-07 13:58 | PCM.PN.NEU ---
Subjective: patient seen and examined. No new complaints. Tolerating therapy. Incision site is C/D/I, no redness or swelling noted wound is well approximated. Applying adaptive gauze to outer ankle to blister site daily. No issues with GI/. - Physical Exam General: Alert, Oriented x3, Cooperative HEENT: Atraumatic, PERRLA, EOMI, Normocephalic Neck: Supple, No JVD, Negative Carotid Bruits Lungs: Clear to auscultation, Normal air movement Cardiovascular: Regular rate, No murmurs Abdomen: Bowel Sounds Present, Soft, Non Tender Extremities: No edema, Capillary Refill Less than 3 Seconds Skin: No rashes, No breakdown Musculoskeletal: No Tenderness to Palpation of Joints or Extremities Neurological: Cranial nerves II-XII grossly intact Psych/Mental Status: Normal Affect, Appropriate Vital Signs Temp Pulse Resp BP Pulse Ox 97.7 F L 102 H 17 136/73 H 97 01/07/18 08:12 01/07/18 08:12 01/07/18 08:12 01/07/18 08:12 01/07/18 08:12 Oxygen Delivery Method Room Air Weight: 72 kg Body Mass Index (BMI) 30.2 Intake and Output for Last 24 Hours 01/05/18 01/06/18 01/07/18 23:59 23:59 23:59 Intake Total 720 / 720 560 / 560 560 / 560 Balance 720 / 720 560 / 560 560 / 560 Active Medications Hydrocodone Bitart/Acetaminophen ([place] 5mg-325mg) 1 - 2 tablet PO Q6H PRN PRN PRN Reason: MOD-SEVERE PAIN (4-10/10) Last Admin: 01/07/18 08:05 Dose: 2 tablet Bisacodyl (Dulcolax) 10 mg RECTAL .PRN X 1 PRN PRN Reason: Constipation [facility] Admin: 01/07/18 08:06 Dose: 100 mg Enoxaparin Sodium (Lovenox) 40 mg SC DAILY@0600 [facility] Last Admin: 01/07/18 06:26 Dose: 40 mg Exemestane (Aromasin) 25 mg PO QHS [facility] Last Admin: 01/06/18 20:18 Dose: 25 mg [facility]apentin ([facility]ontin) [facility] Last Admin: 01/07/18 08:05 Dose: 300 mg Loratadine (Claritin) 10 mg PO DAILY [facility] Last Admin: 01/07/18 08:05 Dose: 10 mg Magnesium Hydroxide (Milk Of Magnesia) 30 ml PO .PRN X 1 PRN PRN Reason: Constipation Melatonin (Melatonin) 5 mg PO QHS [facility] Last Admin: 01/06/18 20:17 Dose: 5 mg Multivitamins/Minerals (Multivitamin With Minerals) 1 tablet PO DAILY@0800 [facility] Last Admin: 01/07/18 08:05 Dose: 1 tablet Nutritional Formula (Mckinley - [place] Flavor) 1 packet PO BIDCM [facility] Last Admin: 01/07/18 08:05 Dose: 1 packet Pantoprazole Sodium (Protonix) 40 mg PO DAILY [facility] Last Admin: 01/07/18 08:04 Dose: 40 mg Senna/Docusate Sodium (Senokot-S, Carrie-Colace) 2 tablet PO BID [facility] Last Admin: 01/07/18 08:04 Dose: 2 tablet Medical Necessity - Tobacco Use Smoking Status: Former smoker Assessment/Plan Debility s/p Right ankle fx/orif, complicated by MS, Trigeminal Neuralgia, and depression. goal of rehab is [facility]isc[facility] of functional independence. - PT for gait and balance - OT for adls - PRN analgesics - Bowel protocol - DVT prophylaxis: Lovenox, SCDs, and Zoltan Hoses - Hx TN: continue home dose of GPN 300mg BID, and Tegretol 100mg BID - Hx Relapsing MS: currently in remission patient is not on any medication at present - Hx Left breast Lumpectomy - Hx Depression currently not on medications was on Lexapro - Right ankle ORIF => NWB, in soft cast dressing is C/D/I, Sutures removal on 05 january by rehab team. Follow up with surgeon on discharge from rehab - Patient snores during the night has trouble staying awake during the day, have problems with daily activities due to excessive tiredness, will schedule a PSG once discharge home - Sutures on the outer ankle (~20) removed, incision C/D/I, inner ankle suture site, appeared macerated, will let the surgeon know, the ankle was re-splinted and hedy wrapped. For now will apply adaptive to site will change dressing daily.
--- NOTE | 2018-01-07 14:01 | PN.NEURO_ITS ---
Subjective: patient seen and examined. No new complaints. Tolerating therapy. Incision site is C/D/I, no redness or swelling noted wound is well approximated. Applying adaptive gauze to outer ankle to blister site daily. No issues with GI/ . - Physical Exam General: Alert, Oriented x3, Cooperative HEENT: Atraumatic, PERRLA, EOMI, Normocephalic Neck: Supple, No JVD, Negative Carotid Bruits Lungs: Clear to auscultation, Normal air movement Cardiovascular: Regular rate, No murmurs Abdomen: Bowel Sounds Present, Soft, Non Tender Extremities: No edema, Capillary Refill Less than 3 Seconds Skin: No rashes, No breakdown Musculoskeletal: No Tenderness to Palpation of Joints or Extremities Neurological: Cranial nerves II-XII grossly intact Psych/Mental Status: Normal Affect, Appropriate Vital Signs Temp Pulse Resp BP Pulse Ox 97.7 F L 102 H 17 136/73 H 97 01/07/18 08:12 01/07/18 08:12 01/07/18 08:12 01/07/18 08:12 01/07/18 08:12 Oxygen Delivery Method Room Air Weight: 72 kg Body Mass Index (BMI) 30.2 Intake and Output for Last 24 Hours 01/05/18 01/06/18 01/07/18 23:59 23:59 23:59 Intake Total 720 / 720 560 / 560 560 / 560 Balance 720 / 720 560 / 560 560 / 560 Active Medications Hydrocodone Bitart/Acetaminophen ([place] 5mg-325mg) 1 - 2 tablet PO Q6H PRN PRN PRN Reason: MOD-SEVERE PAIN (4-10/10) Last Admin: 01/07/18 08:05 Dose: 2 tablet Bisacodyl (Dulcolax) 10 mg RECTAL .PRN X 1 PRN PRN Reason: Constipation [facility]) [facility] Last Admin: 01/07/18 08:06 Dose: 100 mg Enoxaparin Sodium (Lovenox) 40 mg SC DAILY@0600 [facility] Last Admin: 01/07/18 06:26 Dose: 40 mg Exemestane (Aromasin) 25 mg PO QHS [facility] Last Admin: 01/06/18 20:18 Dose: 25 mg Gabapentin (Neurontin) [facility] Last Admin: 01/07/18 08:05 Dose: 300 mg Loratadine (Claritin) 10 mg PO DAILY [facility] Last Admin: 01/07/18 08:05 Dose: 10 mg Magnesium Hydroxide (Milk Of Magnesia) 30 ml PO .PRN X 1 PRN PRN Reason: Constipation Melatonin (Melatonin) 5 mg PO QHS [facility] Last Admin: 01/06/18 20:17 Dose: 5 mg Multivitamins/Minerals (Multivitamin With Minerals) 1 tablet PO DAILY@0800 [facility] Last Admin: 01/07/18 08:05 Dose: 1 tablet Nutritional Formula (Mckinley - [place] Flavor) 1 packet PO BIDCM [facility] Last Admin: 01/07/18 08:05 Dose: 1 packet Pantoprazole Sodium (Protonix) 40 mg PO DAILY [facility] Last Admin: 01/07/18 08:04 Dose: 40 mg Senna/Docusate Sodium (Senokot-S, Carrie-Colace) 2 tablet PO BID [facility] Last Admin: 01/07/18 08:04 Dose: 2 tablet Medical Necessity - Tobacco Use Smoking Status: Former smoker Assessment/Plan Debility s/p Right ankle fx/orif, complicated by MS, Trigeminal Neuralgia, and depression. goal of rehab is orthodox of functional independence. - PT for gait and balance - OT for adls - PRN analgesics - Bowel protocol - DVT prophylaxis: Lovenox, SCDs, and Zoltan Hoses - Hx TN: continue home dose of GPN 300mg BID, and Tegretol 100mg BID - Hx Relapsing MS: currently in remission patient is not on any medication at present - Hx Left breast Lumpectomy - Hx Depression currently not on medications was on Lexapro - Right ankle ORIF => NWB, in soft cast dressing is C/D/I, Sutures removal on 05 january by rehab team. Follow up with surgeon on discharge from rehab - Patient snores during the night has trouble staying awake during the day, have problems with daily activities due to excessive tiredness, will schedule a PSG once discharge home - Sutures on the outer ankle (~20) removed, incision C/D/I, inner ankle suture site, appeared macerated, will let the surgeon know, the ankle was re-splinted and hedy wrapped. For now will apply adaptive to site will change dressing daily.
[2018-01-07 21:11] VITALS: BP 101/54; PULSE 97; RESP 17; TEMP 36.8; O2SAT 93
[2018-01-07] MEDS: MELATONIN 10 MG TABLET 5 MG PO (21:13)
[2018-01-08] MEDS: HYDROcodone Bitartrate/Apap 5/325 Tablet PO ×2 (06:26→23:01)
[2018-01-08] MEDS: Enoxaparin 40 MG/0.4 ML Syringe SC (06:27)
[2018-01-08] MEDS: Gabapentin 300 MG Capsule PO ×2 (07:39→16:45)
[2018-01-08] MEDS: Pantoprazole Sodium 40 MG Tablet PO (07:39)
[2018-01-08] MEDS: Loratadine 10 MG Tablet PO (07:39)
[2018-01-08] MEDS: Multivitamins,Ther W-Minerals Tablet 1 TABLET PO (07:39)
[2018-01-08] MEDS: carBAMazepine 200 MG Tablet 100 MG PO ×2 (07:40→16:45)
[2018-01-08 10:00] VITALS: BP 120/77; PULSE 98; RESP 16; TEMP 36.6; O2SAT 94
--- NOTE | 2018-01-08 17:13 | PCM.PN.HOSP ---
Subjective: Patient is on baseline. Has more problems. Still on nonweightbearing. Vitals/I&O's: Vital Signs Temp Pulse Resp BP Pulse Ox 98 F 98 16 120/77 94 01/08/18 10:00 01/08/18 10:00 01/08/18 10:00 01/08/18 10:00 01/08/18 10:00 Oxygen Delivery Method Room Air Weight: 158 lb 11.725 oz Body Mass Index (BMI) 30.2 Intake and Output for Last 24 Hours 01/06/18 01/07/18 01/08/18 23:59 23:59 23:59 Intake Total 560 / 560 920 / 920 500 / 500 Balance 560 / 560 920 / 920 500 / 500 General: Alert, Oriented x3, Cooperative HEENT: Atraumatic, PERRLA, EOMI, Normocephalic Neck: Supple, No JVD, Negative Carotid Bruits Lungs: Clear to auscultation, Normal air movement Cardiovascular: Regular rate, Regular Rhythm, Normal S1, Normal S2, No murmurs Abdomen: Bowel Sounds Present, Soft, Non Tender, Non-Distended Extremities: No edema, Capillary Refill Less than 3 Seconds Skin: No rashes, No breakdown Musculoskeletal: Arthritic Changes, - - Right lower extremity not weightbearing Neurological: Cranial nerves II-XII grossly intact Psych/Mental Status: Normal Affect, Appropriate Current Medications Hydrocodone Bitart/Acetaminophen ([place] 5mg-325mg) 1 - 2 tablet PO Q6H PRN PRN PRN Reason: MOD-SEVERE PAIN (4-10/10) Last Admin: 01/08/18 06:26 Dose: 1 tablet Bisacodyl (Dulcolax) 10 mg RECTAL .PRN X 1 PRN PRN Reason: Constipation [facility] Last Admin: 01/08/18 16:45 Dose: 100 mg Enoxaparin Sodium (Lovenox) 40 mg SC DAILY@0600 [facility] Last Admin: 01/08/18 06:27 Dose: 40 mg Exemestane (Aromasin) 25 mg PO QHS [facility] Last Admin: 01/07/18 21:14 Dose: 25 mg Gabapentin (Neurontin) [facility] Last Admin: 01/08/18 16:45 Dose: 300 mg Loratadine (Claritin) 10 mg PO DAILY [facility] Last Admin: 01/08/18 07:39 Dose: 10 mg Magnesium Hydroxide (Milk Of Magnesia) 30 ml PO .PRN X 1 PRN PRN Reason: Constipation Melatonin (Melatonin) 5 mg PO QHS [facility] Last Admin: 01/07/18 21:13 Dose: 5 mg Multivitamins/Minerals (Multivitamin With Minerals) 1 tablet PO DAILY@0800 [facility] Last Admin: 01/08/18 07:39 Dose: 1 tablet Nutritional Formula (Mckinley - [place] Flavor) 1 packet PO BIDCM [facility] Last Admin: 01/08/18 16:45 Dose: 1 packet Pantoprazole Sodium (Protonix) 40 mg PO DAILY [facility] Last Admin: 01/08/18 07:39 Dose: 40 mg Senna/Docusate Sodium (Senokot-S, Carrie-Colace) 2 tablet PO BID [facility] Last Admin: 01/08/18 07:41 Dose: Not Given Medical Necessity - Tobacco Use Smoking Status: Former smoker Assessment/Plan 62 year old female with a history of breast cancer, relapsing multiple Sclerosis, sleep apnea, peptic ulcers and depression who is s/p ORIF of her right ankle on 12/24/17 at [facility]. Vital signs are stable. Labs reviewed. 1. status post ORIF of right ankle, undergoing physical therapy; currently on nonweightbearing. Patient has blister on the outer ankle. On adaptive gauze. Dressing change as per the surgeon recommendation. 2. Relapsing Multiple Sclerosis, in remission 3. Breast cancer s/p lumpectomy, on exemastane 4. Depression, stable 5. DVT prophylaxis with Lovenox. Code Visit Inpatient E&M: 20784 Subs Hosp L2
[2018-01-08] MEDS: MELATONIN 10 MG TABLET 5 MG PO (20:37)
[2018-01-08 20:41] VITALS: BP 111/66; PULSE 100; RESP 16; TEMP 36.8; O2SAT 94
[2018-01-09] MEDS: HYDROcodone Bitartrate/Apap 5/325 Tablet PO ×2 (06:08→22:07)
[2018-01-09] MEDS: Enoxaparin 40 MG/0.4 ML Syringe SC (06:09)
[2018-01-09] MEDS: Loratadine 10 MG Tablet PO (08:04)
[2018-01-09] MEDS: Pantoprazole Sodium 40 MG Tablet PO (08:04)
[2018-01-09] MEDS: Gabapentin 300 MG Capsule PO ×2 (08:04→17:13)
[2018-01-09] MEDS: Multivitamins,Ther W-Minerals Tablet 1 TABLET PO (08:04)
[2018-01-09] MEDS: carBAMazepine 200 MG Tablet 100 MG PO ×2 (08:05→17:13)
[2018-01-09] MEDS: Senna/Docusate Sodium 1 Tablet 2 TABLET PO ×2 (08:06→20:53)
[2018-01-09 09:17] VITALS: BP 127/69; PULSE 98; RESP 16; TEMP 36.4; O2SAT 98
[2018-01-09] MEDS: MELATONIN 10 MG TABLET 5 MG PO (20:51)
[2018-01-09 20:55] VITALS: BP 106/63; PULSE 97; RESP 18; TEMP 36.6; O2SAT 96
--- NOTE | 2018-01-10 03:33 | NURSING ---
REVIEWED AND AGREE WITH SCHEDULE PLANNING MANAGER'S FIM AND HANDOFF CHARTING.
[2018-01-10] MEDS: Enoxaparin 40 MG/0.4 ML Syringe SC (05:08)
[2018-01-10] MEDS: HYDROcodone Bitartrate/Apap 5/325 Tablet PO ×2 (05:56→20:40)
[2018-01-10 07:12] VITALS: BP 113/67; PULSE 86; RESP 16; TEMP 36.7; O2SAT 95
[2018-01-10] MEDS: carBAMazepine 200 MG Tablet 100 MG PO ×2 (07:30→16:30)
[2018-01-10] MEDS: Loratadine 10 MG Tablet PO (07:31)
[2018-01-10] MEDS: Senna/Docusate Sodium 1 Tablet 2 TABLET PO ×2 (07:31→19:45)
[2018-01-10] MEDS: Gabapentin 300 MG Capsule PO ×2 (07:31→16:30)
[2018-01-10] MEDS: Multivitamins,Ther W-Minerals Tablet 1 TABLET PO (07:31)
[2018-01-10] MEDS: Pantoprazole Sodium 40 MG Tablet PO (07:31)
--- NOTE | 2018-01-10 09:36 | PCM.PN.NEU ---
Subjective: Staffed in team meeting. Family was not at the bedside. Questions answered. With Physical therapy, she is able to walk about 55 feet with walker, she requires an occasional reminder not to put weight on the right leg. She is standby assist for bed mobility, and contact guard for transfers and pivots. The plan this week is to work on mobility on the stairs and in general. With Occupational therapy, She is able to do her own personal care, put on her socks and thread her pants over her foot, she does require a light hand occasionally to help with balance while she attempts to pull her pants up. Otherwise she is doing well. With Nursing, changing the dressing covering her incision site BID, putting Adaptive on the medial incision site. The dressing is C/D/I, the incision site is healing nicely. - Physical Exam General: Alert, Oriented x3, Cooperative HEENT: Atraumatic, PERRLA, EOMI, Normocephalic Neck: Supple, No JVD, Negative Carotid Bruits Lungs: Clear to auscultation, Normal air movement Cardiovascular: Regular rate, No murmurs Abdomen: Bowel Sounds Present, Soft, Non Tender Extremities: No edema, Capillary Refill Less than 3 Seconds Skin: No rashes, No breakdown Musculoskeletal: No Tenderness to Palpation of Joints or Extremities Neurological: Cranial nerves II-XII grossly intact Psych/Mental Status: Normal Affect, Appropriate Vital Signs Temp Pulse Resp BP Pulse Ox 98.0 F 86 16 113/67 95 01/10/18 07:12 01/10/18 07:12 01/10/18 07:12 01/10/18 07:12 01/10/18 07:12 Oxygen Delivery Method Room Air Weight: 72 kg Body Mass Index (BMI) 30.2 Intake and Output for Last 24 Hours 01/08/18 01/09/18 01/10/18 23:59 23:59 23:59 Intake Total 760 / 760 260 / 260 320 / 320 Balance 760 / 760 260 / 260 320 / 320 Active Medications Hydrocodone Bitart/Acetaminophen ([place] 5mg-325mg) 1 - 2 tablet PO Q6H PRN PRN PRN Reason: MOD-SEVERE PAIN (4-10/10) Last Admin: 01/10/18 05:56 Dose: 2 tablet Bisacodyl (Dulcolax) 10 mg RECTAL .PRN X 1 PRN PRN Reason: Constipation [facility] Last Admin: 01/10/18 07:30 Dose: 100 mg Enoxaparin Sodium (Lovenox) 40 mg SC DAILY@0600 [facility] Last Admin: 01/10/18 05:08 Dose: 40 mg Exemestane (Aromasin) 25 mg PO QHS [facility] Last Admin: 01/09/18 20:51 Dose: 25 mg Gabapentin ([facility]urontin) [facility] Last Admin: 01/10/18 07:31 Dose: 300 mg Loratadine (Claritin) 10 mg PO DAILY [facility] Last Admin: 01/10/18 07:31 Dose: 10 mg Magnesium Hydroxide (Milk Of Magnesia) 30 ml PO .PRN X 1 PRN PRN Reason: Constipation Melatonin (Melatonin) 5 mg PO QHS [facility] Last Admin: 01/09/18 20:51 Dose: 5 mg Multivitamins/Minerals (Multivitamin With Minerals) 1 tablet PO DAILY@0800 [facility] Last Admin: 01/10/18 07:31 Dose: 1 tablet Nutritional Formula (Mckinley - [place] Flavor) [facility] Last Admin: 01/10/18 07:31 Dose: 1 packet Pantoprazole Sodium (Protonix) 40 mg PO DAILY [facility] Last Admin: 01/10/18 07:31 Dose: 40 mg Senna/Docusate Sodium (Senokot-S, Carrie-Colace) 2 tablet PO BID [facility] Last Admin: 01/10/18 07:31 Dose: 2 tablet Medical Necessity - Tobacco Use Smoking Status: Former smoker Assessment/Plan Debility s/p Right ankle fx/orif, complicated by MS, Trigeminal Neuralgia, and depression. goal of rehab is yazidism of functional independence. - PT for gait and balance - OT for adls - PRN analgesics - Bowel protocol - DVT prophylaxis: Lovenox, SCDs, and Zoltan Hoses - Hx [place]: continue home dose of GPN 300mg BID, and Tegretol 100mg BID - Hx Relapsing MS: currently in remission patient is not on any medication at present - Hx Left breast Lumpectomy - Hx Depression currently not on medications was on Lexapro - Right ankle ORIF => NWB, in soft cast dressing is C/D/I, Sutures removal on 05 january by rehab team. Follow up with surgeon on discharge from rehab - Patient snores during the night has trouble staying awake during the day, have problems with daily activities due to excessive tiredness, will schedule a PSG once discharge home - Sutures on the outer ankle (~20) removed, incision C/D/I, inner ankle suture site, appeared macerated, will let the surgeon know, the ankle was re-splinted and hedy wrapped. For now will apply adaptive to site will change dressing daily.
--- NOTE | 2018-01-10 09:44 | PN.NEURO_ITS ---
Subjective: Staffed in team meeting. Family was not at the bedside. Questions answered. With Physical therapy, she is able to walk about 55 feet with walker, she requires an occasional reminder not to put weight on the right leg. She is standby assist for bed mobility, and contact guard for transfers and pivots. The plan this week is to work on mobility on the stairs and in general. With Occupational therapy, She is able to do her own personal care, put on her socks and thread her pants over her foot, she does require a light hand occasionally to help with balance while she attempts to pull her pants up. Otherwise she is doing well. With Nursing, changing the dressing covering her incision site BID, putting Adaptive on the medial incision site. The dressing is C/D/I, the incision site is healing nicely. - Physical Exam General: Alert, Oriented x3, Cooperative HEENT: Atraumatic, PERRLA, EOMI, Normocephalic Neck: Supple, No JVD, Negative Carotid Bruits Lungs: Clear to auscultation, Normal air movement Cardiovascular: Regular rate, No murmurs Abdomen: Bowel Sounds Present, Soft, Non Tender Extremities: No edema, Capillary Refill Less than 3 Seconds Skin: No rashes, No breakdown Musculoskeletal: No Tenderness to Palpation of Joints or Extremities Neurological: Cranial nerves II-XII grossly intact Psych/Mental Status: Normal Affect, Appropriate Vital Signs Temp Pulse Resp BP Pulse Ox 98.0 F 86 16 113/67 95 01/10/18 07:12 01/10/18 07:12 01/10/18 07:12 01/10/18 07:12 01/10/18 07:12 Oxygen Delivery Method Room Air Weight: 72 kg Body Mass Index (BMI) 30.2 Intake and Output for Last 24 Hours 01/08/18 01/09/18 01/10/18 23:59 23:59 23:59 Intake Total 760 / 760 260 / 260 320 / 320 Balance 760 / 760 260 / 260 320 / 320 Active Medications Hydrocodone Bitart/Acetaminophen ([place] 5mg-325mg) 1 - 2 tablet PO Q6H PRN PRN PRN Reason: MOD-SEVERE PAIN (4-10/10) Last Admin: 01/10/18 05:56 Dose: 2 tablet Bisacodyl (Dulcolax) 10 mg RECTAL .PRN X 1 PRN PRN Reason: Constipation [facility] Last Admin: 01/10/18 07:30 Dose: 100 mg Enoxaparin Sodium (Lovenox) 40 mg SC DAILY@0600 [facility] Last Admin: 01/10/18 05:08 Dose: 40 mg Exemestane (Aromasin) 25 mg PO QHS [facility] Last Admin: 01/09/18 20:51 Dose: 25 mg [facility]) [facility] Last Admin: 01/10/18 07:31 Dose: 300 mg Loratadine (Claritin) 10 mg PO DAILY [facility] Last Admin: 01/10/18 07:31 Dose: 10 mg Magnesium Hydroxide (Milk Of Magnesia) 30 ml PO .PRN X 1 PRN PRN Reason: Constipation Melatonin (Melatonin) 5 mg PO QHS [facility] Last Admin: 01/09/18 20:51 Dose: 5 mg Multivitamins/Minerals (Multivitamin With Minerals) 1 tablet PO DAILY@0800 [facility] Last Admin: 01/10/18 07:31 Dose: 1 tablet Nutritional Formula (Mckinley - [place] Flavor) [facility] Last Admin: 01/10/18 07:31 Dose: 1 packet Pantoprazole Sodium (Protonix) 40 mg PO DAILY [facility] Last Admin: 01/10/18 07:31 Dose: 40 mg Senna/Docusate Sodium (Senokot-S, Carrie-Colace) 2 tablet PO BID [facility] Last Admin: 01/10/18 07:31 Dose: 2 tablet Medical Necessity - Tobacco Use Smoking Status: Former smoker Assessment/Plan Debility s/p Right ankle fx/orif, complicated by MS, Trigeminal Neuralgia, and depression. goal of rehab is restorationist of functional independence. - PT for gait and balance - OT for adls - PRN analgesics - Bowel protocol - DVT prophylaxis: Lovenox, SCDs, and Zoltan Hoses - Hx [place]: continue home dose of GPN 300mg BID, and Tegretol 100mg BID - Hx Relapsing MS: currently in remission patient is not on any medication at present - Hx Left breast Lumpectomy - Hx Depression currently not on medications was on Lexapro - Right ankle ORIF => NWB, in soft cast dressing is C/D/I, Sutures removal on 05 january by rehab team. Follow up with surgeon on discharge from rehab - Patient snores during the night has trouble staying awake during the day, have problems with daily activities due to excessive tiredness, will schedule a PSG once discharge home - Sutures on the outer ankle (~20) removed, incision C/D/I, inner ankle suture site, appeared macerated, will let the surgeon know, the ankle was re-splinted and hedy wrapped. For now will apply adaptive to site will change dressing daily.
--- NOTE | 2018-01-10 10:25 | CASEMGMT ---
Social Work Team meeting held today in pt room with pt present. Pt is progressing with therapy and continued stay is anticipated. Pt made aware that insurance update will be placed today and SW will notify pt of determination when information received. Pt expresses understanding and agreement. Plan to continue with treatment plan and reteam next week. KAREN Hale
--- NOTE | 2018-01-10 15:07 | CASEMGMT ---
Insurance Clinical update faxed to insurance company. Will await determination for continued stay. Auth # [id number] KAREN Hale
[2018-01-10 19:27] VITALS: BP 107/51; PULSE 97; RESP 16; TEMP 36.7; O2SAT 93
[2018-01-10] MEDS: MELATONIN 10 MG TABLET 5 MG PO (19:45)
--- NOTE | 2018-01-11 01:59 | NURSING ---
Reviewed and agree with ADVERTISING OPERATIONS MANAGER documentation and [facility]IMS charting.
[2018-01-11] MEDS: HYDROcodone Bitartrate/Apap 5/325 Tablet PO ×2 (04:15→21:13)
[2018-01-11] MEDS: Enoxaparin 40 MG/0.4 ML Syringe SC (05:47)
[2018-01-11] MEDS: carBAMazepine 200 MG Tablet 100 MG PO ×2 (07:56→16:48)
[2018-01-11] MEDS: Multivitamins,Ther W-Minerals Tablet 1 TABLET PO (07:56)
[2018-01-11] MEDS: Gabapentin 300 MG Capsule PO ×2 (07:56→16:48)
[2018-01-11] MEDS: Pantoprazole Sodium 40 MG Tablet PO (07:56)
[2018-01-11] MEDS: Loratadine 10 MG Tablet PO (08:01)
[2018-01-11 08:22] VITALS: BP 121/73; PULSE 94; RESP 16; TEMP 37; O2SAT 95
[2018-01-11 21:06] VITALS: BP 107/63; PULSE 93; RESP 16; TEMP 36.7; O2SAT 97
[2018-01-11] MEDS: MELATONIN 10 MG TABLET 5 MG PO (21:12)
[2018-01-11] MEDS: Senna/Docusate Sodium 1 Tablet 2 TABLET PO (21:13)
[2018-01-12] MEDS: Enoxaparin 40 MG/0.4 ML Syringe SC (05:37)
[2018-01-12] MEDS: HYDROcodone Bitartrate/Apap 5/325 Tablet PO ×2 (05:45→21:07)
[2018-01-12] MEDS: carBAMazepine 200 MG Tablet 100 MG PO ×2 (07:50→16:10)
[2018-01-12] MEDS: Gabapentin 300 MG Capsule PO ×2 (07:50→16:10)
[2018-01-12] MEDS: Multivitamins,Ther W-Minerals Tablet 1 TABLET PO (07:50)
[2018-01-12] MEDS: Pantoprazole Sodium 40 MG Tablet PO (07:50)
[2018-01-12 07:57] VITALS: BP 127/69; PULSE 88; RESP 16; TEMP 36.6; O2SAT 97
--- NOTE | 2018-01-12 08:43 | CASEMGMT ---
Insurance Continued stay approved with next update due on 01/17/18 Auth#[id number] Lavinia JONES, AGENCY RECRUITER
[2018-01-12] MEDS: Loratadine 10 MG Tablet PO (10:15)
--- NOTE | 2018-01-12 10:22 | PCM.PN.NEU ---
Subjective: Patient seen and examined. Tolerating therapy. Incision site is C/D/I, incision is well approximated. Denies any shortness of breath or chest pains. No issues with GI/. Has been approved to stay through 01/17/18. - Physical Exam General: Alert, Oriented x3, Cooperative HEENT: Atraumatic, PERRLA, EOMI, Normocephalic Neck: Supple, No JVD, Negative Carotid Bruits Lungs: Clear to auscultation, Normal air movement Cardiovascular: Regular rate, No murmurs Abdomen: Bowel Sounds Present, Soft, Non Tender Extremities: No edema, Capillary Refill Less than 3 Seconds Skin: No rashes, No breakdown Musculoskeletal: No Tenderness to Palpation of Joints or Extremities Neurological: Cranial nerves II-XII grossly intact Psych/Mental Status: Normal Affect, Appropriate Vital Signs Temp Pulse Resp BP Pulse Ox 97.9 F 88 16 127/69 H 97 01/12/18 07:57 01/12/18 07:57 01/12/18 07:57 01/12/18 07:57 01/12/18 07:57 Oxygen Delivery Method Room Air Weight: 71 kg Body Mass Index (BMI) 30.2 Intake and Output for Last 24 Hours 01/10/18 01/11/18 01/12/18 23:59 23:59 23:59 Intake Total 580 / 580 840 / 840 220 / 220 Balance 580 / 580 840 / 840 220 / 220 Active Medications Hydrocodone Bitart/Acetaminophen ([place] 5mg-325mg) 1 - 2 tablet PO Q6H PRN PRN PRN Reason: MOD-SEVERE PAIN (4-10/10) Last Admin: 01/12/18 05:45 Dose: 2 tablet Bisacodyl (Dulcolax) 10 mg RECTAL .PRN X 1 PRN PRN Reason: Constipation [facility] Last Admin: 01/12/18 07:50 Dose: 100 mg Enoxaparin Sodium (Lovenox) 40 mg SC DAILY@0600 [facility]S [facility] Last Admin: 01/12/18 05:37 Dose: 40 mg Exemestane (Aromasin) 25 mg PO QHS [facility] Last Admin: 01/11/18 21:13 Dose: 25 mg Gabapentin ([facility]in) [facility] Last Admin: 01/12/18 07:50 Dose: 300 mg Loratadine (Claritin) 10 mg PO DAILY [facility] 234 [facility]S AT [facility] Last Admin: 01/12/18 10:15 Dose: 10 mg Magnesium Hydroxide (Milk Of Magnesia) 30 ml PO .PRN X 1 PRN PRN Reason: Constipation Melatonin (Melatonin) 5 mg PO QHS [facility] 234 [facility]S AT [facility] Last Admin: 01/11/18 21:12 Dose: 5 mg Multivitamins/Minerals (Multivitamin With Minerals) 1 tablet PO DAILY@0800 [facility] 234 BEDS AT [facility] Last Admin: 01/12/18 07:50 Dose: 1 tablet Nutritional Formula (Mckinley - [place] Flavor) 1 packet PO BIDCM [facility]S [facility]CLUDE 234 BEDS AT [facility] Last Admin: 01/12/18 07:50 Dose: 1 packet Pantoprazole Sodium (Protonix) 40 mg PO DAILY [facility] 234 [facility]S AT [facility] Last Admin: 01/12/18 07:50 Dose: 40 mg Senna/Docusate Sodium (Senokot-S, Carrie-Colace) 2 tablet PO BID [facility] 234 [facility]S AT [facility] Last Admin: 01/12/18 07:53 Dose: Not Given Medical Necessity - Tobacco Use Smoking Status: Former smoker Assessment/Plan Debility s/p Right ankle fx/orif, complicated by MS, Trigeminal Neuralgia, and depression. goal of rehab is christian of functional independence. - PT for gait and balance - OT for adls - PRN analgesics - Bowel protocol - DVT prophylaxis: Lovenox, SCDs, and Zoltan Hoses - Hx [place]: continue home dose of GPN 300mg BID, and Tegretol 100mg BID - Hx Relapsing MS: currently in remission patient is not on any medication at present - Hx Left breast Lumpectomy - Hx Depression currently not on medications was on Lexapro - Right ankle ORIF => NWB, in soft cast dressing is C/D/I, Sutures removal on 05 january by rehab team. Follow up with surgeon on discharge from rehab - Patient snores during the night has trouble staying awake during the day, have problems with daily activities due to excessive tiredness, will schedule a PSG once discharge home - Sutures on the outer ankle (~20) removed, incision C/D/I, inner ankle suture site, appeared macerated, will let the surgeon know, the ankle was re-splinted and hedy wrapped. For now will apply adaptive to site will change dressing daily.
--- NOTE | 2018-01-12 10:25 | PN.NEURO_ITS ---
Subjective: Patient seen and examined. Tolerating therapy. Incision site is C/D/I, incision is well approximated. Denies any shortness of breath or chest pains. No issues with GI/. Has been approved to stay through 01/17/18. - Physical Exam General: Alert, Oriented x3, Cooperative HEENT: Atraumatic, PERRLA, EOMI, Normocephalic Neck: Supple, No JVD, Negative Carotid Bruits Lungs: Clear to auscultation, Normal air movement Cardiovascular: Regular rate, No murmurs Abdomen: Bowel Sounds Present, Soft, Non Tender Extremities: No edema, Capillary Refill Less than 3 Seconds Skin: No rashes, No breakdown Musculoskeletal: No Tenderness to Palpation of Joints or Extremities Neurological: Cranial nerves II-XII grossly intact Psych/Mental Status: Normal Affect, Appropriate Vital Signs Temp Pulse Resp BP Pulse Ox 97.9 F 88 16 127/69 H 97 01/12/18 07:57 01/12/18 07:57 01/12/18 07:57 01/12/18 07:57 01/12/18 07:57 Oxygen Delivery Method Room Air Weight: 71 kg Body Mass Index (BMI) 30.2 Intake and Output for Last 24 Hours 01/10/18 01/11/18 01/12/18 23:59 23:59 23:59 Intake Total 580 / 580 840 / 840 220 / 220 Balance 580 / 580 840 / 840 220 / 220 Active Medications Hydrocodone Bitart/Acetaminophen ([place] 5mg-325mg) 1 - 2 tablet PO Q6H PRN PRN PRN Reason: MOD-SEVERE PAIN (4-10/10) Last Admin: 01/12/18 05:45 Dose: 2 tablet Bisacodyl (Dulcolax) 10 mg RECTAL .PRN X 1 PRN PRN Reason: Constipation [facility] Last Admin: 01/12/18 07:50 Dose: 100 mg Enoxaparin Sodium (Lovenox) 40 mg SC DAILY@0600 [facility] Last Admin: 01/12/18 05:37 Dose: 40 mg Exemestane (Aromasin) 25 mg PO QHS [facility] Last Admin: 01/11/18 21:13 Dose: 25 mg Gabapentin (Neurontin) [facility] Last Admin: 01/12/18 07:50 Dose: 300 mg Loratadine (Claritin) 10 mg PO DAILY [facility] Last Admin: 01/12/18 10:15 Dose: 10 mg Magnesium Hydroxide (Milk Of Magnesia) 30 ml PO .PRN X 1 PRN PRN Reason: Constipation Melatonin (Melatonin) 5 mg PO QHS [facility] Last Admin: 01/11/18 21:12 Dose: 5 mg Multivitamins/Minerals (Multivitamin With Minerals) 1 tablet PO DAILY@0800 [facility] Last Admin: 01/12/18 07:50 Dose: 1 tablet Nutritional Formula (Mckinley - [place] Flavor) 1 packet PO BIDCM [facility] Last Admin: 01/12/18 07:50 Dose: 1 packet Pantoprazole Sodium (Protonix) 40 mg PO DAILY [facility] Last Admin: 01/12/18 07:50 Dose: 40 mg Senna/Docusate Sodium (Senokot-S, Carrie-Colace) 2 tablet PO BID [facility] Last Admin: 01/12/18 07:53 Dose: Not Given Medical Necessity - Tobacco Use Smoking Status: Former smoker Assessment/Plan Debility s/p Right ankle fx/orif, complicated by MS, Trigeminal Neuralgia, and depression. goal of rehab is tenriism of functional independence. - PT for gait and balance - OT for adls - PRN analgesics - Bowel protocol - DVT prophylaxis: Lovenox, SCDs, and Zoltan Hoses - Hx TN: continue home dose of GPN 300mg BID, and Tegretol 100mg BID - Hx Relapsing MS: currently in remission patient is not on any medication at present - Hx Left breast Lumpectomy - Hx Depression currently not on medications was on Lexapro - Right ankle ORIF => NWB, in soft cast dressing is C/D/I, Sutures removal on 05 january by rehab team. Follow up with surgeon on discharge from rehab - Patient snores during the night has trouble staying awake during the day, have problems with daily activities due to excessive tiredness, will schedule a PSG once discharge home - Sutures on the outer ankle (~20) removed, incision C/D/I, inner ankle suture site, appeared macerated, will let the surgeon know, the ankle was re-splinted and hedy wrapped. For now will apply adaptive to site will change dressing daily.
[2018-01-12 20:09] VITALS: BP 113/64; PULSE 97; RESP 16; TEMP 36.4; O2SAT 96
[2018-01-12] MEDS: Senna/Docusate Sodium 1 Tablet 2 TABLET PO (21:08)
[2018-01-12] MEDS: MELATONIN 10 MG TABLET 5 MG PO (21:08)
[2018-01-13] MEDS: Enoxaparin 40 MG/0.4 ML Syringe SC (06:45)
[2018-01-13 08:11] VITALS: BP 115/72; PULSE 93; RESP 16; TEMP 36.5; O2SAT 98
[2018-01-13] MEDS: carBAMazepine 200 MG Tablet 100 MG PO ×2 (11:14→17:43)
[2018-01-13] MEDS: Loratadine 10 MG Tablet PO (11:15)
[2018-01-13] MEDS: Pantoprazole Sodium 40 MG Tablet PO (11:15)
[2018-01-13] MEDS: Multivitamins,Ther W-Minerals Tablet 1 TABLET PO (11:15)
[2018-01-13] MEDS: Gabapentin 300 MG Capsule PO ×2 (11:15→17:43)
--- NOTE | 2018-01-13 13:35 | PCM.PN.NEU ---
Subjective: Patient seen during therapy session. No new complaints. Tolerating therapy. Pain well controlled on current medications. Denies any shortness of breath or chest pains. Tolerating regular diet. No GI/ issues. - Physical Exam General: Alert, Oriented x3, Cooperative HEENT: Atraumatic, PERRLA, EOMI, Normocephalic Neck: Supple, No JVD, Negative Carotid Bruits Lungs: Clear to auscultation, Normal air movement Cardiovascular: Regular rate, No murmurs Abdomen: Bowel Sounds Present, Soft, Non Tender Extremities: No edema, Capillary Refill Less than 3 Seconds Skin: No rashes, No breakdown Musculoskeletal: No Tenderness to Palpation of Joints or Extremities Neurological: Cranial nerves II-XII grossly intact Psych/Mental Status: Normal Affect, Appropriate Vital Signs Temp Pulse Resp BP Pulse Ox 97.7 F L 93 16 115/72 98 01/13/18 08:11 01/13/18 08:11 01/13/18 08:11 01/13/18 08:11 01/13/18 08:11 Oxygen Delivery Method Room Air Weight: 71 kg Body Mass Index (BMI) 30.2 Intake and Output for Last 24 Hours 01/11/18 01/12/18 01/13/18 23:59 23:59 23:59 Intake Total 840 / 840 700 / 700 480 / 480 Balance 840 / 840 700 / 700 480 / 480 Active Medications Hydrocodone Bitart/Acetaminophen ([place] 5mg-325mg) 1 - 2 tablet PO Q6H PRN PRN PRN Reason: MOD-SEVERE PAIN (4-10/10) Last Admin: 01/12/18 21:07 Dose: 2 tablet Bisacodyl (Dulcolax) 10 mg RECTAL .PRN X 1 PRN PRN Reason: Constipation [facility] Last Admin: 01/13/18 11:14 Dose: 100 mg Enoxaparin Sodium (Lovenox) 40 mg SC DAILY@0600 [facility] Last Admin: 01/13/18 06:45 Dose: 40 mg Exemestane (Aromasin) 25 mg PO QHS [facility] Last Admin: 01/12/18 21:10 Dose: 25 mg [facility] ([facility]ontin) [facility] Last Admin: 01/13/18 11:15 Dose: 300 mg Loratadine (Claritin) 10 mg PO DAILY [facility] Last Admin: 01/13/18 11:15 Dose: 10 mg Magnesium Hydroxide (Milk Of Magnesia) 30 ml PO .PRN X 1 PRN PRN Reason: Constipation Melatonin (Melatonin) 5 mg PO QHS [facility] Last Admin: 01/12/18 21:08 Dose: 5 mg Multivitamins/Minerals (Multivitamin With Minerals) 1 tablet PO DAILY@0800 [facility] Last Admin: 01/13/18 11:15 Dose: 1 tablet Nutritional Formula (Mckinley - [place] Flavor) 1 packet PO BIDCM [facility] Last Admin: 01/13/18 11:15 Dose: 1 packet Pantoprazole Sodium (Protonix) 40 mg PO DAILY [facility] Last Admin: 01/13/18 11:15 Dose: 40 mg Senna/Docusate Sodium (Senokot-S, Carrie-Colace) 2 tablet PO BID [facility] Last Admin: 01/13/18 11:16 Dose: Not Given Medical Necessity - Tobacco Use Smoking Status: Former smoker Assessment/Plan Debility s/p Right ankle fx/orif, complicated by MS, Trigeminal Neuralgia, and depression. goal of rehab is yarsanism of functional independence. - PT for gait and balance - OT for adls - PRN analgesics - Bowel protocol - DVT prophylaxis: Lovenox, SCDs, and Zoltan Hoses - Hx TN: continue home dose of GPN 300mg BID, and Tegretol 100mg BID - Hx Relapsing MS: currently in remission patient is not on any medication at present - Hx Left breast Lumpectomy - Hx Depression currently not on medications was on Lexapro - Right ankle ORIF => NWB, in soft cast dressing is C/D/I, Sutures removal on 05 january by rehab team. Follow up with surgeon on discharge from rehab - Patient snores during the night has trouble staying awake during the day, have problems with daily activities due to excessive tiredness, will schedule a PSG once discharge home - Sutures on the outer ankle (~20) removed, incision C/D/I, inner ankle suture site, appeared macerated, will let the surgeon know, the ankle was re-splinted and hedy wrapped. For now will apply adaptive to site will change dressing daily.
[2018-01-13 20:08] VITALS: BP 111/56; PULSE 92; RESP 12; TEMP 36.8; O2SAT 94
[2018-01-13] MEDS: MELATONIN 10 MG TABLET 5 MG PO (22:24)
[2018-01-13] MEDS: HYDROcodone Bitartrate/Apap 5/325 Tablet PO (22:25)
[2018-01-14] MEDS: HYDROcodone Bitartrate/Apap 5/325 Tablet PO ×2 (06:22→21:59)
[2018-01-14] MEDS: Enoxaparin 40 MG/0.4 ML Syringe SC (06:24)
[2018-01-14 08:19] VITALS: BP 124/69; PULSE 72; RESP 16; TEMP 36.6; O2SAT 98
[2018-01-14] MEDS: Gabapentin 300 MG Capsule PO ×2 (09:36→16:26)
[2018-01-14] MEDS: Pantoprazole Sodium 40 MG Tablet PO (09:36)
[2018-01-14] MEDS: Multivitamins,Ther W-Minerals Tablet 1 TABLET PO (09:36)
[2018-01-14] MEDS: Loratadine 10 MG Tablet PO (09:36)
[2018-01-14] MEDS: carBAMazepine 200 MG Tablet 100 MG PO ×2 (09:37→16:26)
--- NOTE | 2018-01-14 11:51 | PCM.PN.NEU ---
Subjective: patient seen and examined. No new complaints. Tolerating therapy. pain is controlled on current pain medication. Incision site is well approximate both the medial and lateral incision. No issues with GI/. - Physical Exam General: Alert, Oriented x3, Cooperative HEENT: Atraumatic, PERRLA, EOMI, Normocephalic Neck: Supple, No JVD, Negative Carotid Bruits Lungs: Clear to auscultation, Normal air movement Cardiovascular: Regular rate, No murmurs Abdomen: Bowel Sounds Present, Soft, Non Tender Extremities: No edema, Capillary Refill Less than 3 Seconds Skin: No rashes, No breakdown Musculoskeletal: No Tenderness to Palpation of Joints or Extremities Neurological: Cranial nerves II-XII grossly intact Psych/Mental Status: Normal Affect, Appropriate Vital Signs Temp Pulse Resp BP Pulse Ox 97.9 F 72 16 124/69 H 98 01/14/18 08:19 01/14/18 08:19 01/14/18 08:19 01/14/18 08:19 01/14/18 08:19 Oxygen Delivery Method Room Air Weight: 71 kg Body Mass Index (BMI) 30.2 Intake and Output for Last 24 Hours 01/12/18 01/13/18 01/14/18 23:59 23:59 23:59 Intake Total 700 / 700 480 / 480 240 / 240 Balance 700 / 700 480 / 480 240 / 240 Active Medications Hydrocodone Bitart/Acetaminophen ([place] 5mg-325mg) 1 - 2 tablet PO Q6H PRN PRN PRN Reason: MOD-SEVERE PAIN (4-10/10) Last Admin: 01/14/18 06:22 Dose: 2 tablet Bisacodyl (Dulcolax) 10 mg RECTAL .PRN X 1 PRN PRN Reason: Constipation [facility]) [facility] Last Admin: 01/14/18 09:37 Dose: 100 mg Enoxaparin Sodium (Lovenox) 40 mg SC DAILY@0600 [facility] Last Admin: 01/14/18 06:24 Dose: 40 mg Exemestane (Aromasin) 25 mg PO QHS [facility] Last Admin: 01/13/18 22:25 Dose: 25 mg Gabapentin (Neurontin) [facility] Last Admin: 01/14/18 09:36 Dose: 300 mg Loratadine (Claritin) 10 mg PO DAILY [facility] Last Admin: 01/14/18 09:36 Dose: 10 mg Magnesium Hydroxide (Milk Of Magnesia) 30 ml PO .PRN X 1 PRN PRN Reason: Constipation Melatonin (Melatonin) 5 mg PO QHS [facility] Last Admin: 01/13/18 22:24 Dose: 5 mg Multivitamins/Minerals (Multivitamin With Minerals) 1 tablet PO DAILY@0800 [facility] Last Admin: 01/14/18 09:36 Dose: 1 tablet Nutritional Formula (Mckinley - [place] Flavor) 1 packet PO BIDCM [facility] Last Admin: 01/14/18 09:37 Dose: 1 packet Pantoprazole Sodium (Protonix) 40 mg PO DAILY [facility] Last Admin: 01/14/18 09:36 Dose: 40 mg Senna/Docusate Sodium (Senokot-S, Carrie-Colace) 2 tablet PO BID [facility] Last Admin: 01/14/18 09:36 Dose: Not Given Medical Necessity - Tobacco Use Smoking Status: Former smoker Assessment/Plan Debility s/p Right ankle fx/orif, complicated by MS, Trigeminal Neuralgia, and depression. goal of rehab is yarsani of functional independence. - PT for gait and balance - OT for adls - PRN analgesics - Bowel protocol - DVT prophylaxis: Lovenox, SCDs, and Zoltan Hoses - Hx TN: continue home dose of GPN 300mg BID, and Tegretol 100mg BID - Hx Relapsing MS: currently in remission patient is not on any medication at present - Hx Left breast Lumpectomy - Hx Depression currently not on medications was on Lexapro - Right ankle ORIF => NWB, in soft cast dressing is C/D/I, Sutures removal on 05 january by rehab team. Follow up with surgeon on discharge from rehab - Patient snores during the night has trouble staying awake during the day, have problems with daily activities due to excessive tiredness, will schedule a PSG once discharge home - Sutures on the outer ankle (~20) removed, incision C/D/I, inner ankle suture site, appeared macerated, will let the surgeon know, the ankle was re-splinted and hedy wrapped. For now will apply adaptive to site will change dressing daily.
--- NOTE | 2018-01-14 11:54 | PN.NEURO_ITS ---
Subjective: patient seen and examined. No new complaints. Tolerating therapy. pain is controlled on current pain medication. Incision site is well approximate both the medial and lateral incision. No issues with GI/. - Physical Exam General: Alert, Oriented x3, Cooperative HEENT: Atraumatic, PERRLA, EOMI, Normocephalic Neck: Supple, No JVD, Negative Carotid Bruits Lungs: Clear to auscultation, Normal air movement Cardiovascular: Regular rate, No murmurs Abdomen: Bowel Sounds Present, Soft, Non Tender Extremities: No edema, Capillary Refill Less than 3 Seconds Skin: No rashes, No breakdown Musculoskeletal: No Tenderness to Palpation of Joints or Extremities Neurological: Cranial nerves II-XII grossly intact Psych/Mental Status: Normal Affect, Appropriate Vital Signs Temp Pulse Resp BP Pulse Ox 97.9 F 72 16 124/69 H 98 01/14/18 08:19 01/14/18 08:19 01/14/18 08:19 01/14/18 08:19 01/14/18 08:19 Oxygen Delivery Method Room Air Weight: 71 kg Body Mass Index (BMI) 30.2 Intake and Output for Last 24 Hours 01/12/18 01/13/18 01/14/18 23:59 23:59 23:59 Intake Total 700 / 700 480 / 480 240 / 240 Balance 700 / 700 480 / 480 240 / 240 Active Medications Hydrocodone Bitart/Acetaminophen ([place] 5mg-325mg) 1 - 2 tablet PO Q6H PRN PRN PRN Reason: MOD-SEVERE PAIN (4-10/10) Last Admin: 01/14/18 06:22 Dose: 2 tablet Bisacodyl (Dulcolax) 10 mg RECTAL .PRN X 1 PRN PRN Reason: Constipation [facility]ep[facility] ([facility]) [facility] Last Admin: 01/14/18 09:37 Dose: 100 mg Enoxaparin Sodium (Lovenox) 40 mg SC DAILY@0600 [facility] Last Admin: 01/14/18 06:24 Dose: 40 mg Exemestane (Aromasin) 25 mg PO QHS [facility] Last Admin: 01/13/18 22:25 Dose: 25 mg Gabapentin (Neurontin) [facility] Last Admin: 01/14/18 09:36 Dose: 300 mg Loratadine (Claritin) 10 mg PO DAILY [facility] Last Admin: 01/14/18 09:36 Dose: 10 mg Magnesium Hydroxide (Milk Of Magnesia) 30 ml PO .PRN X 1 PRN PRN Reason: Constipation Melatonin (Melatonin) 5 mg PO QHS [facility] Last Admin: 01/13/18 22:24 Dose: 5 mg Multivitamins/Minerals (Multivitamin With Minerals) 1 tablet PO DAILY@0800 [facility] Last Admin: 01/14/18 09:36 Dose: 1 tablet Nutritional Formula (Mckinley - [place] Flavor) 1 packet PO BIDCM [facility] Last Admin: 01/14/18 09:37 Dose: 1 packet Pantoprazole Sodium (Protonix) 40 mg PO DAILY [facility] Last Admin: 01/14/18 09:36 Dose: 40 mg Senna/Docusate Sodium (Senokot-S, Carrie-Colace) 2 tablet PO BID [facility] Last Admin: 01/14/18 09:36 Dose: Not Given Medical Necessity - Tobacco Use Smoking Status: Former smoker Assessment/Plan Debility s/p Right ankle fx/orif, complicated by MS, Trigeminal Neuralgia, and depression. goal of rehab is anabaptism of functional independence. - PT for gait and balance - OT for adls - PRN analgesics - Bowel protocol - DVT prophylaxis: Lovenox, SCDs, and Zotlan Hoses - Hx TN: continue home dose of GPN 300mg BID, and Tegretol 100mg BID - Hx Relapsing MS: currently in remission patient is not on any medication at present - Hx Left breast Lumpectomy - Hx Depression currently not on medications was on Lexapro - Right ankle ORIF => NWB, in soft cast dressing is C/D/I, Sutures removal on 05 january by rehab team. Follow up with surgeon on discharge from rehab - Patient snores during the night has trouble staying awake during the day, have problems with daily activities due to excessive tiredness, will schedule a PSG once discharge home - Sutures on the outer ankle (~20) removed, incision C/D/I, inner ankle suture site, appeared macerated, will let the surgeon know, the ankle was re-splinted and hedy wrapped. For now will apply adaptive to site will change dressing daily.
--- NOTE | 2018-01-14 17:25 | PCM.PN.HOSP ---
Subjective: CC: S/P ORIF R ankle Objective: She is a 62 year old female with a history of breast cancer, relapsing Multiple Sclerosis, Sleep apnea, peptic ulcers and depression who is s/p ORIF of her right ankle on 12/24/17 at [facility], after she had a mechanical fall in which she sustained a bimalleolar mildly displace fracture of her right ankle, she is now admitted to the rehab unit for further post acute care rehabilitation. She reports no new symptoms, no acute events reported overnight. Vitals/I&O's: Vital Signs Temp Pulse Resp BP Pulse Ox 97.9 F 72 16 124/69 H 98 01/14/18 08:19 01/14/18 08:19 01/14/18 08:19 01/14/18 08:19 01/14/18 08:19 Oxygen Delivery Method Room Air Weight: 71 kg Body Mass Index (BMI) 30.2 Intake and Output for Last 24 Hours 01/12/18 01/13/18 01/14/18 23:59 23:59 23:59 Intake Total 700 / 700 480 / 480 480 / 480 Balance 700 / 700 480 / 480 480 / 480 General: Alert, Oriented x3 Oral: Moist Mucosa Neck: Supple, No JVD Lungs: Clear to auscultation, No wheeze Cardiovascular: Regular rate, Normal S1, No murmurs Abdomen: Bowel Sounds Present Extremities: - - r ankle is post surgical Current Medications Hydrocodone Bitart/Acetaminophen ([place] 5mg-325mg) 1 - 2 tablet PO Q6H PRN PRN PRN Reason: MOD-SEVERE PAIN (4-10/10) Last Admin: 01/14/18 06:22 Dose: 2 tablet Bisacodyl (Dulcolax) 10 mg RECTAL .PRN X 1 PRN PRN Reason: Constipation [facility] Last Admin: 01/14/18 16:26 Dose: 100 mg Enoxaparin Sodium (Lovenox) 40 mg SC DAILY@0600 [facility] Last Admin: 01/14/18 06:24 Dose: 40 mg Exemestane (Aromasin) 25 mg PO QHS [facility] Last Admin: 01/13/18 22:25 Dose: 25 mg Gabapentin ([facility]ontin) [facility] Last Admin: 04/06/18 16:26 Dose: 300 mg Loratadine (Claritin) 10 mg PO DAILY [facility] Last Admin: 01/14/18 09:36 Dose: 10 mg Magnesium Hydroxide (Milk Of Magnesia) 30 ml PO .PRN X 1 PRN PRN Reason: Constipation Melatonin (Melatonin) 5 mg PO QHS [facility] Last Admin: 01/13/18 22:24 Dose: 5 mg Multivitamins/Minerals (Multivitamin With Minerals) 1 tablet PO DAILY@0800 [facility] Last Admin: 01/14/18 09:36 Dose: 1 tablet Nutritional Formula (Mckinley - [place] Flavor) [facility] Last Admin: 01/14/18 16:26 Dose: 1 packet Pantoprazole Sodium (Protonix) 40 mg PO DAILY [facility] Last Admin: 01/14/18 09:36 Dose: 40 mg Senna/Docusate Sodium (Senokot-S, Carrie-Colace) 2 tablet PO BID [facility] Last Admin: 01/14/18 16:28 Dose: Not Given Medical Necessity - Tobacco Use Smoking Status: Former smoker Assessment/Plan 1. Status post ORIF of right ankle; continue physical therapy as tolerated and optimize pain control. 2. Relapsing Multiple Sclerosis; she is currently in remission. 3. Breast cancer s/p lumpectomy, she is on Aromasin 4. Sleep apnea; med recommend HS CPAP 5. Depression; this is stable. 7. DVT prophylaxis with Lovenox. Code Visit Inpatient E&M: 15865 Subs Hosp L2
[2018-01-14 21:53] VITALS: BP 110/68; PULSE 92; RESP 18; TEMP 36.5; O2SAT 98
[2018-01-14] MEDS: MELATONIN 10 MG TABLET 5 MG PO (21:55)
[2018-01-15] MEDS: HYDROcodone Bitartrate/Apap 5/325 Tablet PO ×2 (04:05→20:35)
[2018-01-15] MEDS: Enoxaparin 40 MG/0.4 ML Syringe SC (06:21)
[2018-01-15 07:37] VITALS: BP 119/78; PULSE 79; RESP 18; TEMP 36.4; O2SAT 96
[2018-01-15] MEDS: carBAMazepine 200 MG Tablet 100 MG PO ×2 (07:38→16:57)
[2018-01-15] MEDS: Multivitamins,Ther W-Minerals Tablet 1 TABLET PO (07:38)
[2018-01-15] MEDS: Loratadine 10 MG Tablet PO (07:38)
[2018-01-15] MEDS: Gabapentin 300 MG Capsule PO ×2 (07:38→16:56)
[2018-01-15] MEDS: Pantoprazole Sodium 40 MG Tablet PO (07:39)
[2018-01-15 19:26] VITALS: BP 119/65; PULSE 84; RESP 16; TEMP 36.7; O2SAT 98
[2018-01-15] MEDS: MELATONIN 10 MG TABLET 5 MG PO (20:28)
[2018-01-16] MEDS: HYDROcodone Bitartrate/Apap 5/325 Tablet PO ×2 (05:34→21:22)
[2018-01-16] MEDS: Enoxaparin 40 MG/0.4 ML Syringe SC (05:35)
[2018-01-16 07:35] VITALS: BP 120/78; PULSE 84; RESP 17; TEMP 36.6; O2SAT 99
[2018-01-16] MEDS: Gabapentin 300 MG Capsule PO ×2 (07:53→16:55)
[2018-01-16] MEDS: Pantoprazole Sodium 40 MG Tablet PO (07:53)
[2018-01-16] MEDS: Loratadine 10 MG Tablet PO (07:53)
[2018-01-16] MEDS: Multivitamins,Ther W-Minerals Tablet 1 TABLET PO (07:53)
[2018-01-16] MEDS: carBAMazepine 200 MG Tablet 100 MG PO ×2 (07:54→16:55)
--- NOTE | 2018-01-16 14:46 | PCM.PN.HOSP ---
Subjective: Patient is a 62-year-old female with past medical history of relapsing multiple sclerosis, breast cancer, sleep apnea, peptic ulcer disease and depression was admitted with a complaint of mechanical fall after which she had open reduction and internal fixation of the right ankle on 12/24/2017 and or referral. She was admitted to the rehab unit afterwards for post acute care rehabilitation. She has remained stable. Patient seen and examined. She was sitting comfortably up in a chair and had no complaints. She denied any fever or chills, any cough or chest pain, any abdominal pain, any diarrhea or vomiting. Review of systems otherwise negative. She has been having physical therapy and pain is well controlled. Vitals/I&O's: Vital Signs Temp Pulse Resp BP Pulse Ox 97.9 F 84 17 120/78 99 01/16/18 07:35 01/16/18 07:35 01/16/18 07:35 01/16/18 07:35 01/16/18 07:35 Oxygen Flow Rate (L/min) 2 Oxygen Delivery Method Room Air Weight: 156 lb 8.451 oz Body Mass Index (BMI) 30.2 Intake and Output for Last 24 Hours 01/14/18 01/15/18 01/16/18 23:59 23:59 23:59 Intake Total 840 / 840 700 / 700 240 / 240 Balance 840 / 840 700 / 700 240 / 240 General: Alert, Oriented x3, Cooperative HEENT: Atraumatic, PERRLA, EOMI, Normocephalic Oral: Moist Mucosa Neck: Supple, No JVD, Negative Carotid Bruits Lungs: Clear to auscultation, Normal air movement, No rhonchi, No wheeze, No rales Cardiovascular: Regular rate, Regular Rhythm, Normal S1, Normal S2, No murmurs Abdomen: Bowel Sounds Present, Soft, Non Tender, Non-Distended, No Hepato-splenomegaly Extremities: No clubbing, No cyanosis, No edema, No Calf Tenderness, - - Right lower extremity in cast. Able to wiggle toes. Skin: No rashes, No breakdown Musculoskeletal: No Tenderness to Palpation of Joints or Extremities Lymphatic: No Cervical, Supraclavicular, or Inguinal Adenopathy Neurological: Cranial nerves II-XII grossly intact, Neuro grossly intact Psych/Mental Status: Normal Affect, Appropriate, Alert and oriented to time, place, person, mood and affect Current Medications Hydrocodone Bitart/Acetaminophen ([place] 5mg-325mg) 1 - 2 tablet PO Q6H PRN PRN PRN Reason: MOD-SEVERE PAIN (4-1010) Last Admin: 01/16/18 05:34 Dose: 2 tablet Bisacodyl (Dulcolax) 10 mg RECTAL .PRN X 1 PRN PRN Reason: Constipation [facility]) [facility] Last Admin: 01/16/18 07:54 Dose: 100 mg Enoxaparin Sodium (Lovenox) 40 mg SC DAILY@0600 [facility] Last Admin: 01/16/18 05:35 Dose: 40 mg Exemestane (A[facility]asin) [facility] Last Admin: 01/15/18 20:28 Dose: 25 mg Gabapentin (Neurontin) [facility] Last Admin: 01/16/18 07:53 Dose: 300 mg Loratadine (Claritin) 10 mg PO DAILY [facility] Last Admin: 01/16/18 07:53 Dose: 10 mg Magnesium Hydroxide (Milk Of Magnesia) 30 ml PO .PRN X 1 PRN PRN Reason: Constipation Melatonin (Melatonin) [facility] Last Admin: 01/15/18 20:28 Dose: 5 mg Multivitamins/Minerals (Multivitamin With Minerals) 1 tablet PO DAILY@0800 [facility] Last Admin: 01/16/18 07:53 Dose: 1 tablet Nutritional Formula (Mckinley - [place] Flavor) [facility] Last Admin: 01/16/18 07:53 Dose: 1 packet Pantoprazole Sodium (Protonix) 40 mg PO DAILY [facility] Last Admin: 01/16/18 07:53 Dose: 40 mg Senna/Docusate Sodium (Senokot-S, [place]-Colace) 2 tablet PO BID [facility] Last Admin: 01/16/18 07:54 Dose: Not Given Medical Necessity - Tobacco Use Smoking Status: Former smoker Assessment/Plan 1. Status post ORIF of right ankle: Stable. Continue physical therapy. On [place] for pain control. Continue physical therapy as tolerated and optimize pain control. 2. Relapsing multiple sclerosis: stable. Currently in remission. 3. Cancer status post lumpectomy: Currently on exemestane. Will continue. 4. Sleep apnea. Stable. Continue CPAP at night. 5. Depression: Stable. DVT Prophylaxis: Lovenox. Code Visit Inpatient E&M: 16128 Init Hosp L2
[2018-01-16 19:53] VITALS: BP 125/71; PULSE 93; RESP 17; TEMP 36.4; O2SAT 96
[2018-01-16] MEDS: MELATONIN 10 MG TABLET 5 MG PO (21:22)
[2018-01-17] MEDS: HYDROcodone Bitartrate/Apap 5/325 Tablet PO ×2 (06:14→21:02)
[2018-01-17] MEDS: Enoxaparin 40 MG/0.4 ML Syringe SC (06:15)
[2018-01-17 07:49] VITALS: BP 111/56; PULSE 81; RESP 18; TEMP 36.6; O2SAT 95
[2018-01-17] MEDS: Senna/Docusate Sodium 1 Tablet 2 TABLET PO (07:58)
[2018-01-17] MEDS: carBAMazepine 200 MG Tablet 100 MG PO ×2 (07:58→16:50)
[2018-01-17] MEDS: Pantoprazole Sodium 40 MG Tablet PO (07:58)
[2018-01-17] MEDS: Multivitamins,Ther W-Minerals Tablet 1 TABLET PO (07:58)
[2018-01-17] MEDS: Loratadine 10 MG Tablet PO (07:58)
[2018-01-17] MEDS: Gabapentin 300 MG Capsule PO ×2 (07:58→16:50)
--- NOTE | 2018-01-17 10:05 | CASEMGMT ---
Team meeting held. Patient present, no support person present as meeting. Patient agreeable to this social welfare administrator contacting patient son, Corby about team meeting. Collaborating with team, current recommendation is for patient to begin transition to the skilled facility as patient will be non-weight bearing from some time and will be unable to return home without being full weight bearing. Patient requesting for a referral to be made to [facility]. Patient plans to transition once precert has been obtained along with approving halfway. Support given. Telephone call to Corby. This social welfare administrator communicating above information. Corby agreeable to all above as well as transitioning patient to [facility]. Telephone call to Maryanne KENNEDY. Voicemail left with referral, will send clinical information once it is confirmed that [facility] has openings. Will continue to follow. Lavinia JONES, SCIENTIFIC RESEARCH MANAGER
--- NOTE | 2018-01-17 10:16 | PCM.PN.HOSP ---
Subjective: Patient is a 62 year old lady who underwent ORIF following a right ankle fracture admitted to the inpatient rehab unit where patient is currently been undergoing therapy 01/17/2018: Patient seen tearful her SSRI resumed Vitals/I&O's: Vital Signs Temp Pulse Resp BP Pulse Ox 97.9 F 81 18 111/56 L 95 01/17/18 07:49 01/17/18 07:49 01/17/18 07:49 01/17/18 07:49 01/17/18 07:49 Oxygen Flow Rate (L/min) 2 Oxygen Delivery Method Room Air Weight: 71 kg Body Mass Index (BMI) 30.2 Intake and Output for Last 24 Hours 01/15/18 01/16/18 01/17/18 23:59 23:59 23:59 Intake Total 700 / 700 240 / 240 220 / 220 Balance 700 / 700 240 / 240 220 / 220 General: Cooperative HEENT: Atraumatic Neck: Supple Lungs: Clear to auscultation Cardiovascular: Regular rate, Regular Rhythm Extremities: No clubbing, No cyanosis Skin: No rashes Neurological: Neuro grossly intact Psych/Mental Status: Depressed Current Medications Hydrocodone Bitart/Acetaminophen ([place] 5mg-325mg) 1 - 2 tablet PO Q6H PRN PRN PRN Reason: MOD-SEVERE PAIN (4-1010) Last Admin: 01/17/18 06:14 Dose: 2 tablet Bisacodyl (Dulcolax) 10 mg RECTAL .PRN X 1 PRN PRN Reason: Constipation [facility]) [facility] Last Admin: 01/17/18 07:58 Dose: 100 mg Enoxaparin Sodium (Lovenox) 40 mg SC DAILY@0600 [facility] Last Admin: 01/17/18 06:15 Dose: 40 mg Escitalopram Oxalate (Lexapro) 10 mg PO DAILY [facility] Exemestane (Aromasin) 25 mg PO QHS [facility] Last Admin: 01/16/18 21:24 Dose: 25 mg Gabapentin (Neurontin) 300 mg PO BIDCM [facility] Last Admin: 01/17/18 07:58 Dose: 300 mg Loratadine (Claritin) 10 mg PO DAILY [facility] Last Admin: 01/17/18 07:58 Dose: 10 mg Magnesium Hydroxide (Milk Of Magnesia) 30 ml PO .PRN X 1 PRN PRN Reason: Constipation Melatonin (Melatonin) 5 mg PO QHS [facility] Last Admin: 01/16/18 21:22 Dose: 5 mg Multivitamins/Minerals (Multivitamin With Minerals) 1 tablet PO DAILY@0800 [facility] Last Admin: 01/17/18 07:58 Dose: 1 tablet Nutritional Formula (Mckinley - [place] Flavor) 1 packet PO BIDCM [facility] Last Admin: 01/17/18 07:56 Dose: 1 packet Pantoprazole Sodium (Protonix) 40 mg PO DAILY [facility] Last Admin: 01/17/18 07:58 Dose: 40 mg Senna/Docusate Sodium (Senokot-S, Carrie-Colace) 2 tablet PO BID [facility] Last Admin: 01/17/18 07:58 Dose: 2 tablet Medical Necessity - Tobacco Use Smoking Status: Former smoker Assessment/Plan Patient is a 62 year old lady who underwent ORIF following a right ankle fracture admitted to the inpatient rehab unit where patient is currently been undergoing therapy 1. Right ankle fracture status post ORIF managed on the inpatient rehab unit 2. Relapsing multiple sclerosis: stable; in remission. 3. Breast Cancer status post lumpectomy: Currently on exemestane. 4. Sleep apnea. Stable. Continue CPAP at night. 5. Severe Depression SSRI resumed on 01/17/2018 6. DVT Prophylaxis: Lovenox. Code Visit Inpatient E&M: 36336 [facility] Hosp L2
--- NOTE | 2018-01-17 10:33 | PCM.PN.NEU ---
Subjective: Staffed in team meeting. Family was not at bedside. Questions was answered. With Physical therapy, she is able to walk about 50 to 55 feet with walker, she requires an occasional reminder not to put weight on the right leg. She has attempted about 2 steps with the use of 2 hand rails, she required a great deal of help and assistance. She is standby assist for bed mobility, and contact guard for transfers and pivots. With Occupational therapy, She is able to do her own personal care, put on her socks and thread her pants over her foot, she does require a light hand occasionally to help with balance while she attempts to pull her pants up. Otherwise she is doing well. With Nursing, changing the dressing covering her incision site BID, putting Adaptive on the medial incision site. The dressing is C/D/I, the incision site is healing nicely. Her pain is well controlled on current medications. Is very tearful here the last few days will restart her Lexapro 10mg dai8ly. The plan is to transition in the next week to [facility]. The patient and family will work with the grout worker to pick a facility. - Physical Exam General: Alert, Oriented x3, Cooperative HEENT: Atraumatic, PERRLA, EOMI, Normocephalic Neck: Supple, No JVD, Negative Carotid Bruits Lungs: Clear to auscultation, Normal air movement Cardiovascular: Regular rate, No murmurs Abdomen: Bowel Sounds Present, Soft, Non Tender Extremities: No edema, Capillary Refill Less than 3 Seconds Skin: No rashes, No breakdown Musculoskeletal: No Tenderness to Palpation of Joints or Extremities Neurological: Cranial nerves II-XII grossly intact Psych/Mental Status: Normal Affect, Appropriate Vital Signs Temp Pulse Resp BP Pulse Ox 97.9 F 81 18 111/56 L 95 01/17/18 07:49 01/17/18 07:49 01/17/18 07:49 01/17/18 07:49 01/17/18 07:49 Oxygen Flow Rate (L/min) 2 Oxygen Delivery Method Room Air Weight: 71 kg Body Mass Index (BMI) 30.2 Intake and Output for Last 24 Hours 01/15/18 01/16/18 01/17/18 23:59 23:59 23:59 Intake Total 700 / 700 240 / 240 220 / 220 Balance 700 / 700 240 / 240 220 / 220 Active Medications Hydrocodone Bitart/Acetaminophen ([place] 5mg-325mg) 1 - 2 tablet PO Q6H PRN PRN PRN Reason: MOD-SEVERE PAIN (4-1010) Last Admin: 01/17/18 06:14 Dose: 2 tablet Bisacodyl (Dulcolax) 10 mg RECTAL .PRN X 1 PRN PRN Reason: Constipation [facility] Last Admin: 01/17/18 07:58 Dose: 100 mg Enoxaparin Sodium (Lovenox) 40 mg SC DAILY@0600 [facility] Last Admin: 01/17/18 06:15 Dose: 40 mg Escitalopram Oxalate (Lexapro) 10 mg PO DAILY [facility] Exemestane (Aromasin) 25 mg PO QHS [facility] Last Admin: 01/16/18 21:24 Dose: 25 mg Gabapentin ([facility]ontin) [facility] Last Admin: 01/17/18 07:58 Dose: 300 mg Loratadine (Claritin) 10 mg PO DAILY [facility] Last Admin: 01/17/18 07:58 Dose: 10 mg Magnesium Hydroxide (Milk Of Magnesia) 30 ml PO .PRN X 1 PRN PRN Reason: Constipation Melatonin (Melatonin) 5 mg PO QHS [facility] Last Admin: 01/16/18 21:22 Dose: 5 mg Multivitamins/Minerals (Multivitamin With Minerals) 1 tablet PO DAILY@0800 [facility] Last Admin: 01/17/18 07:58 Dose: 1 tablet Nutritional Formula (Mckinley - [place] Flavor) [facility] Last Admin: 01/17/18 07:56 Dose: 1 packet Pantoprazole Sodium (Protonix) 40 mg PO DAILY [facility] Last Admin: 01/17/18 07:58 Dose: 40 mg Senna/Docusate Sodium (Senokot-S, Carrie-Colace) 2 tablet PO BID [facility] Last Admin: 01/17/18 07:58 Dose: 2 tablet Medical Necessity - Tobacco Use Smoking Status: Former smoker Assessment/Plan Debility s/p Right ankle fx/orif, complicated by MS, Trigeminal Neuralgia, and depression. goal of rehab is religion of functional independence. - PT for gait and balance - OT for adls - PRN analgesics - Bowel protocol - DVT prophylaxis: Lovenox, SCDs, and Zoltan Hoses - Hx TN: continue home dose of GPN 300mg BID, and Tegretol 100mg BID - Hx Relapsing MS: currently in remission patient is not on any medication at present - Hx Left breast Lumpectomy - Hx Depression => was not on her Lexapro per patients request, has become very tearful and depress will restart her Lexapro 10mg daily - Right ankle ORIF => NWB, in soft cast dressing is C/D/I, Sutures removal on 05 january by rehab team. Follow up with surgeon on discharge from rehab - Patient snores during the night has trouble staying awake during the day, have problems with daily activities due to excessive tiredness, will schedule a PSG once discharge home - Sutures on the outer ankle (~20) removed, incision C/D/I, inner ankle suture site, appeared macerated, will let the surgeon know, the ankle was re-splinted and hedy wrapped. For now will apply adaptive to site will change dressing daily. - The plan is to transition to SNF in the next few days.
[2018-01-17] MEDS: Escitalopram Oxalate 10 MG Tablet PO (10:34)
--- NOTE | 2018-01-17 10:36 | PN.NEURO_ITS ---
Subjective: Staffed in team meeting. Family was not at bedside. Questions was answered. With Physical therapy, she is able to walk about 50 to 55 feet with walker, she requires an occasional reminder not to put weight on the right leg. She has attempted about 2 steps with the use of 2 hand rails, she required a great deal of help and assistance. She is standby assist for bed mobility, and contact guard for transfers and pivots. With Occupational therapy, She is able to do her own personal care, put on her socks and thread her pants over her foot, she does require a light hand occasionally to help with balance while she attempts to pull her pants up. Otherwise she is doing well. With Nursing, changing the dressing covering her incision site BID, putting Adaptive on the medial incision site. The dressing is C/D/I, the incision site is healing nicely. Her pain is well controlled on current medications. Is very tearful here the last few days will restart her Lexapro 10mg dai8ly. The plan is to transition in the next week to [facility]. The patient and family will work with the social worker masters to pick a facility. - Physical Exam General: Alert, Oriented x3, Cooperative HEENT: Atraumatic, PERRLA, EOMI, Normocephalic Neck: Supple, No JVD, Negative Carotid Bruits Lungs: Clear to auscultation, Normal air movement Cardiovascular: Regular rate, No murmurs Abdomen: Bowel Sounds Present, Soft, Non Tender Extremities: No edema, Capillary Refill Less than 3 Seconds Skin: No rashes, No breakdown Musculoskeletal: No Tenderness to Palpation of Joints or Extremities Neurological: Cranial nerves II-XII grossly intact Psych/Mental Status: Normal Affect, Appropriate Vital Signs Temp Pulse Resp BP Pulse Ox 97.9 F 81 18 111/56 L 95 01/17/18 07:49 01/17/18 07:49 01/17/18 07:49 01/17/18 07:49 01/17/18 07:49 Oxygen Flow Rate (L/min) 2 Oxygen Delivery Method Room Air Weight: 71 kg Body Mass Index (BMI) 30.2 Intake and Output for Last 24 Hours 01/15/18 01/16/18 01/17/18 23:59 23:59 23:59 Intake Total 700 / 700 240 / 240 220 / 220 Balance 700 / 700 240 / 240 220 / 220 Active Medications Hydrocodone Bitart/Acetaminophen ([place] 5mg-325mg) 1 - 2 tablet PO Q6H PRN PRN PRN Reason: MOD-SEVERE PAIN (4-1010) Last Admin: 01/17/18 06:14 Dose: 2 tablet Bisacodyl (Dulcolax) 10 mg RECTAL .PRN X 1 PRN PRN Reason: Constipation [facility] Last Admin: 01/17/18 07:58 Dose: 100 mg Enoxaparin Sodium (Lovenox) 40 mg SC DAILY@0600 [facility] Last Admin: 01/17/18 06:15 Dose: 40 mg Escitalopram Oxalate (Lexapro) 10 mg PO DAILY [facility] Exemestane (Aromasin) 25 mg PO QHS [facility] Last Admin: 01/16/18 21:24 Dose: 25 mg Gabapentin ([facility]ontin) [facility] Last Admin: 01/17/18 07:58 Dose: 300 mg Loratadine (Claritin) 10 mg PO DAILY [facility] Last Admin: 01/17/18 07:58 Dose: 10 mg Magnesium Hydroxide (Milk Of Magnesia) 30 ml PO .PRN X 1 PRN PRN Reason: Constipation Melatonin (Melatonin) 5 mg PO QHS [facility] Last Admin: 01/16/18 21:22 Dose: 5 mg Multivitamins/Minerals (Multivitamin With Minerals) 1 tablet PO DAILY@0800 [facility] Last Admin: 01/17/18 07:58 Dose: 1 tablet Nutritional Formula (Mckinley - [place] Flavor) [facility] Last Admin: 01/17/18 07:56 Dose: 1 packet Pantoprazole Sodium (Protonix) 40 mg PO DAILY [facility] Last Admin: 01/17/18 07:58 Dose: 40 mg Senna/Docusate Sodium (Senokot-S, Carrie-Colace) 2 tablet PO BID [facility] Last Admin: 01/17/18 07:58 Dose: 2 tablet Medical Necessity - Tobacco Use Smoking Status: Former smoker Assessment/Plan Debility s/p Right ankle fx/orif, complicated by MS, Trigeminal Neuralgia, and depression. goal of rehab is mormon of functional independence. - PT for gait and balance - OT for adls - PRN analgesics - Bowel protocol - DVT prophylaxis: Lovenox, SCDs, and Zoltan Hoses - Hx TN: continue home dose of GPN 300mg BID, and Tegretol 100mg BID - Hx Relapsing MS: currently in remission patient is not on any medication at present - Hx Left breast Lumpectomy - Hx Depression => was not on her Lexapro per patients request, has become very tearful and depress will restart her Lexapro 10mg daily - Right ankle ORIF => NWB, in soft cast dressing is C/D/I, Sutures removal on 05 january by rehab team. Follow up with surgeon on discharge from rehab - Patient snores during the night has trouble staying awake during the day, have problems with daily activities due to excessive tiredness, will schedule a PSG once discharge home - Sutures on the outer ankle (~20) removed, incision C/D/I, inner ankle suture site, appeared macerated, will let the surgeon know, the ankle was re-splinted and hedy wrapped. For now will apply adaptive to site will change dressing daily. - The plan is to transition to SNF in the next few days.
--- NOTE | 2018-01-17 11:38 | CASEMGMT ---
Social Work Telephone call from [facility], Maryanne Madden reporting to have an opening and to be able to review clinical information. Pending approval at this time. Will continue to follow. Lavinia JONES, COMMUNICATIONS OFFICER
--- NOTE | 2018-01-17 13:48 | CASEMGMT ---
[facility] able [facility] accept patient. Maryanne to begin precert with patient insurance. Pending insurance approval. Will continue to follow. Lavinia JONES, NIGHT AUDITOR
--- NOTE | 2018-01-17 13:50 | CASEMGMT ---
Insurance Clinicals faxed. Pending continued stay approval at this time. Auth#[id number] Lavinia JONES, IMMIGRATION JUDGE
--- NOTE | 2018-01-17 16:27 | CHAPLAIN ---
Type of Pastoral Visit ___ Initial Visit _x__ Follow-up Visit ___ On-call Visit ___ General Patient Visit ___ Spiritual Assessment ___ Family Conference ___ Bereavement ___ Rapid Response ___ Code Blue ___ Other (describe below) Pastoral Care Referral From _x__ Patient ___ Family ___ Nurse ___ Physician ___ Area Operations Manager ___ Clerical Order Filler ___ Other (describe below) Sacrament/Intervention _x__ Active listening ___ Anointing ___ Latter Day ___ Bereavement ___ Communion ___ Lizett exploration ___ ___ Life review _x__ Prayer ___ Reconciliation ___ Sacrament of Sick _x__ Supportive presence ___ Wedding ___ Other (describe below) Pastoral Comments
[2018-01-17 19:27] VITALS: BP 139/81; PULSE 89; RESP 16; TEMP 36.9; O2SAT 100
[2018-01-17] MEDS: MELATONIN 10 MG TABLET 5 MG PO (21:03)
[2018-01-18] MEDS: Enoxaparin 40 MG/0.4 ML Syringe SC (06:04)
[2018-01-18] MEDS: HYDROcodone Bitartrate/Apap 5/325 Tablet PO ×2 (06:04→22:15)
[2018-01-18 07:30] VITALS: BP 111/64; PULSE 80; RESP 16; TEMP 36.8; O2SAT 94
[2018-01-18] MEDS: Gabapentin 300 MG Capsule PO ×2 (08:14→17:11)
[2018-01-18] MEDS: carBAMazepine 200 MG Tablet 100 MG PO ×2 (08:14→17:11)
[2018-01-18] MEDS: Loratadine 10 MG Tablet PO (08:14)
[2018-01-18] MEDS: Multivitamins,Ther W-Minerals Tablet 1 TABLET PO (08:14)
[2018-01-18] MEDS: Pantoprazole Sodium 40 MG Tablet PO (08:14)
[2018-01-18] MEDS: Escitalopram Oxalate 10 MG Tablet PO (08:14)
--- NOTE | 2018-01-18 11:45 | PCM.TXEXTCAR ---
- Diet 12/28/17 17:01 Diet: Regular Diet - Wound(s) R ANKLE Wound Type: Surgical Incision right inner ankle Wound Type: Surgical Incision Dressing Change: Adaptic dressing to wound site cover with 4x4 wrap ankle with gauze right outer ankle Wound Type: Surgical Incision Dressing Change: Dry Sterile Dressing - Therapies Weight Bearing: Non weight bearing Extremity Affected:: Right Lower Physical Therapy: Eval and Treat Occupational Therapy: Eval and Treat - Allergies/Procedures Done in Hospital Allergies/Adverse Reactions: Allergies cefaclor [From Ceclor] Allergy (Verified 07/15/17 13:21) Hives cephalexin [From Keflex] Allergy (Verified 07/15/17 13:21) Hives cetirizine [From Zyrtec] Allergy (Verified 12/28/17 18:21) Itching Penicillins Allergy (Verified 07/15/17 13:21) Unknown Sulfa (Sulfonamide Antibiotics) Allergy (Verified 12/28/17 18:01) Hives acetaminophen [From Vicodin] Adverse Reaction (Verified 07/15/17 13:21) Nausea/Vomiting azithromycin [From Zithromax] Adverse Reaction (Verified 12/28/17 18:01) Unknown clarithromycin [From Biaxin] Adverse Reaction (Verified 12/28/17 18:01) Nausea/Vom/Diarrhea erythromycin base Adverse Reaction (Verified 12/28/17 18:01) Nausea/Vom/Diarrhea hydrocodone bitartrate [From Vicodin] Adverse Reaction (Verified 07/15/17 13:21) Nausea/Vomiting salsalate [From Disalcid] Adverse Reaction (Verified 12/28/17 18:01) Nausea/Vom/Diarrhea - Type of Care/Length of Stay Estimated LOS: More Than 30 Days Type of Care Needed: Skilled Rehab Potential: Good Prognosis: Good - Additional Orders/Day of Discharge Day of Discharge: 01/19/18 - Dietary and Speech Recommendations Dietitian Recommendations/Changes: Rec calcium w/ vit D to help w/ fx healing - Follow Up Care Primary Care Physician: James Palafox DO [Primary Care Provider] -
--- NOTE | 2018-01-18 11:52 | CASEMGMT ---
Insurance Continued stay approved with next update due on 01/31/18. Auth#[id number] Lavinia JONES, FULL TIME STAFF INTERPRETER
--- NOTE | 2018-01-18 14:52 | CASEMGMT ---
Social Work Telephone call from [facility], Maryanne. Maryanne reporting that precert has been obtained and that [facility] is able to accept patient. Spoke with patient and patient family. This social service worker communicating above information, all agreeable to discharge plan. Patient to discharge on 01/19/18 to [facility]. Patient requesting for transportation to be set up via wheelchair van. Support given. Telephone call to [place]. Transportation set up for 01/19/18 @ 11:00am. Transportation form completed and placed with patient discharge information. PASRR completed in [place] and faxed to [facility]. Orders to be faxed to [facility] when obtained. Proposed discharge date: 01/19/18 @ 11:00am. PLAN: Discharge to [facility] skilled. Lavinia JONES, OUTSIDE MACHINIST SUPERVISOR
[2018-01-18 22:00] VITALS: BP 112/67; PULSE 79; RESP 18; TEMP 36.4; O2SAT 93
[2018-01-18] MEDS: MELATONIN 10 MG TABLET 5 MG PO (22:16)
--- NOTE | 2018-01-19 02:16 | NURSING ---
REVIEWED AND AGREE WITH FORENSIC ACCOUNTANT'S FIM AND HANDOFF CHARTING.
[2018-01-19] MEDS: Enoxaparin 40 MG/0.4 ML Syringe SC (05:21)
[2018-01-19] MEDS: Escitalopram Oxalate 10 MG Tablet PO (08:15)
[2018-01-19] MEDS: Loratadine 10 MG Tablet PO (08:15)
[2018-01-19] MEDS: Pantoprazole Sodium 40 MG Tablet PO (08:15)
[2018-01-19] MEDS: Multivitamins,Ther W-Minerals Tablet 1 TABLET PO (08:15)
[2018-01-19] MEDS: carBAMazepine 200 MG Tablet 100 MG PO (08:15)
[2018-01-19] MEDS: Gabapentin 300 MG Capsule PO (08:15)
[2018-01-19 08:39] VITALS: BP 125/66; PULSE 89; RESP 17; TEMP 36.6; O2SAT 98
--- NOTE | 2018-01-19 08:47 | PCM.RU.DC ---
Rehab Discharge Summary DATE OF ADMISSION: 12/28/17 DATE OF DISCHARGE: 01/19/18 - Rehab Diagnosis Right Ankle Fracture Discharge Diet: No Restrictions Discharge Activity: May Not Drive, May not drive while taking narcotic pain medications., May Shower - keep right leg dry do not get dressing wet, wrap leg in plastic bag to keep dry during shower, Use Walker Weight Bearing Status: No weight bearing Keep extremity elevated above heart level: Right Leg Call your doctor if your incision/area has: Increased Pain/ Swelling, Increased Redness, Foul Smelling Discharge, Swelling at the incision site Call your doctor if you observe: Fever of 101 or Higher, Coldness, Increased Pain, Numbness or Tingling, Change in Color, Inability to urinate, Inability to have a bowel movement, Using more than one pad per hour, Shortness of breath, Dizziness, Fainting spells, Swelling in the ankles, Chest pain, Prolonged hiccoughing, Increased palpitations (irregular heartbeat), Calf discomfort, Uncontrolled pain Cleanse incision/area with: Do not get Incision Wet, Keep Dressing Clean & Dry Home Medications: Medications to take at Discharge Loratadine [Claritin] 10 mg PO DAILY 05/28/14 Multivit-Min/FA/Lycopene/Lut [Centrum Silver Tablet] 1 each PO DAILY 07/25/14 Exemestane [Aromasin] 25 mg PO QHS 07/15/17 Gabapentin [Neurontin] 300 mg PO BID 12/28/17 Carbamazepine [Tegretol] 100 mg PO BIDCM tablet 01/19/18 Escitalopram Oxalate [Lexapro] 10 mg PO DAILY tablet 01/19/18 Melatonin 5 mg PO QHS tablet 01/19/18 Nutritional Supplement [Mckinley - ORANGE FLAVOR] 1 packet PO BIDCM packet 01/19/18 Pantoprazole Sodium [Protonix] 40 mg PO DAILY tablet 01/19/18 Senna/Docusate Sodium [Senokot-S] 2 tablet PO BID tablet 01/19/18 Primary Care Physician: James Palafox DO [Primary Care Provider] - Disposition: [facility] facility Minutes spent on discharge:: 40 Patient Condition:: Good Rehab Course The patient is a 62 year old right handed female, admitted to the rehab unit after suffering a mechanical fall in which she sustained a bimalleolar mildly displace fracture of her right ankle. She has a past medical history of Breast cancer, relapsing Multiple Sclerosis, Sleep apnea, ulcers and depression. She under went an ORIF of her ankle on 12/24/[address] Kam. She is non-weight bearing on the right, she has a splint in place with sutures, the sutures may be removed in one week with follow up with Dr. Kam at discharge. She lives with her son and father in a bilevel home with about 3 to 4 steps to get into the home and about 4 to 5 steps to go from the first level to the second level. She was previously completely functionally independent and is admitted to the rehab unit in order to restore her previous level of functional independence. With Physical therapy, she is able to walk about 55 feet with walker, she requires an occasional reminder not to put weight on the right leg. She is standby assist for bed mobility, and contact guard for transfers and pivots. The plan this week is to work on mobility on the stairs and in general. With Occupational therapy, She is able to do her own personal care, put on her socks and thread her pants over her foot, she does require a light hand occasionally to help with balance while she attempts to pull her pants up. Otherwise she is doing well. With Nursing, changing the dressing covering her incision site BID, putting Adaptive on the medial incision site. The dressing is C/D/I, the incision site is healing nicely. Will be discharged to [facility]. Will follow up with Dr. Kam after discharge. Meaningful Use Info Meaningful Use Diagnoses (Choose all that apply): None applicable
--- NOTE | 2018-01-19 09:01 | PCM.PN.HOSP ---
Subjective: Patient seen mood greatly improved. [facility] Objective: General: Cooperative HEENT: Atraumatic Neck: Supple Lungs: Clear to auscultation Cardiovascular: Regular rate, Regular Rhythm Extremities: No clubbing, No cyanosis Skin: No rashes Neurological: Neuro grossly intact Psych/Mental Status: Depressed Vitals/I&O's: Vital Signs Temp Pulse Resp BP Pulse Ox 97.8 F 89 17 125/66 H 98 01/19/18 08:39 01/19/18 08:39 01/19/18 08:39 01/19/18 08:39 01/19/18 08:39 Oxygen Flow Rate (L/min) 2 Oxygen Delivery Method Room Air Weight: 71 kg Body Mass Index (BMI) 30.2 Intake and Output for Last 24 Hours 01/17/18 01/18/18 01/19/18 23:59 23:59 23:59 Intake Total 660 / 660 920 / 920 240 / 240 Balance 660 / 660 920 / 920 240 / 240 Current Medications Hydrocodone Bitart/Acetaminophen ([place] 5mg-325mg) 1 - 2 tablet PO Q6H PRN PRN PRN Reason: MOD-SEVERE PAIN (4-07/20) Last Admin: 01/18/18 22:15 Dose: 2 tablet Bisacodyl (Dulcolax) 10 mg RECTAL .PRN X 1 PRN PRN Reason: Constipation [facility]amazep[facility] ([facility]) [facility] Last Admin: 01/19/18 08:15 Dose: 100 mg Enoxaparin Sodium (Lovenox) 40 mg SC DAILY@0600 [facility] Last Admin: 01/19/18 05:21 Dose: 40 mg Escitalopram Oxalate (Lexapro) 10 mg PO DAILY [facility] Last Admin: 01/19/18 08:15 Dose: 10 mg Exemestane (Aromasin) 25 mg PO QHS [facility] Last Admin: 01/18/18 22:16 Dose: 25 mg Gabapentin (Neurontin) 300 [facility] Last Admin: 01/19/18 08:15 Dose: 300 mg Loratadine (Claritin) 10 mg PO DAILY [facility] Last Admin: 01/19/18 08:15 Dose: 10 mg Magnesium Hydroxide (Milk Of Magnesia) 30 ml PO .PRN X 1 PRN PRN Reason: Constipation Melatonin (Melatonin) 5 mg PO QHS [facility] Last Admin: 01/18/18 22:16 Dose: 5 mg Multivitamins/Minerals (Multivitamin With Minerals) 1 tablet PO DAILY@0800 [facility] Last Admin: 01/19/18 08:15 Dose: 1 tablet Nutritional Formula (Mckinley - [place] Flavor) 1 packet PO BIDCM [facility] Last Admin: 01/19/18 08:15 Dose: 1 packet Pantoprazole Sodium (Protonix) 40 mg PO DAILY [facility] Last Admin: 01/19/18 08:15 Dose: 40 mg Senna/Docusate Sodium (Senokot-S, Carrie-Colace) 2 tablet PO BID [facility] Last Admin: 01/19/18 08:17 Dose: Not Given Medical Necessity - Tobacco Use Smoking Status: Former smoker Assessment/Plan Patient is a 62 year old lady who underwent ORIF following a right ankle fracture admitted to the inpatient rehab unit where patient is currently been undergoing therapy 1. Right ankle fracture status post ORIF managed on the inpatient rehab unit 2. Relapsing multiple sclerosis: stable; in remission. 3. Breast Cancer status post lumpectomy: Currently on exemestane. 4. Sleep apnea. Stable. Continue CPAP at night. 5. Severe Depression SSRI resumed on 01/17/2018 ; mood did improve 6. DVT Prophylaxis: Lovenox. Code Visit Inpatient E&M: 73139 [facility] Hosp L2
--- NOTE | 2018-01-19 09:05 | PCM.DC ---
- Discharge Diagnoses Reason(s) for Visit for Discharge Instructions: Right Ankle Fracture You will use the following diet at home:: Regular Your food should be the consistency of: Regular Your liquids should be the consistency of: Regular/Thin Discharge Activity: May Not Drive, May not drive while taking narcotic pain medications., May Shower - keep right leg dry do not get dressing wet, wrap leg in plastic bag to keep dry during shower, Use Walker Weight Bearing Status: No weight bearing Keep extremity elevated above heart level: Right Leg Call your doctor if your incision/area has: Increased Pain/ Swelling, Increased Redness, Foul Smelling Discharge, Swelling at the incision site Call your doctor if you observe: Fever of 101 or Higher, Coldness, Increased Pain, Numbness or Tingling, Change in Color, Inability to urinate, Inability to have a bowel movement, Using more than one pad per hour, Shortness of breath, Dizziness, Fainting spells, Swelling in the ankles, Chest pain, Prolonged hiccoughing, Increased palpitations (irregular heartbeat), Calf discomfort, Uncontrolled pain Cleanse incision/area with: Do not get Incision Wet, Keep Dressing Clean & Dry Allergies/Adverse Reactions: Allergies cefaclor [From Ceclor] Allergy (Verified 07/15/17 13:21) Hives cephalexin [From Keflex] Allergy (Verified 07/15/17 13:21) Hives cetirizine [From Zyrtec] Allergy (Verified 12/28/17 18:21) Itching Penicillins Allergy (Verified 07/15/17 13:21) Unknown Sulfa (Sulfonamide Antibiotics) Allergy (Verified 12/28/17 18:01) Hives acetaminophen [From Vicodin] Adverse Reaction (Verified 07/15/17 13:21) Nausea/Vomiting azithromycin [From Zithromax] Adverse Reaction (Verified 12/28/17 18:01) Unknown clarithromycin [From Biaxin] Adverse Reaction (Verified 12/28/17 18:01) Nausea/Vom/Diarrhea erythromycin base Adverse Reaction (Verified 12/28/17 18:01) Nausea/Vom/Diarrhea hydrocodone bitartrate [From Vicodin] Adverse Reaction (Verified 07/15/17 13:21) Nausea/Vomiting salsalate [From Disalcid] Adverse Reaction (Verified 12/28/17 18:01) Nausea/Vom/Diarrhea Medications to take at Discharge Loratadine [Claritin] 10 mg PO DAILY 05/28/14 Multivit-Min/FA/Lycopene/Lut [Centrum Silver Tablet] 1 each PO DAILY 07/25/14 Exemestane [Aromasin] 25 mg PO QHS 07/15/17 Gabapentin [Neurontin] 300 mg PO BID 12/28/17 Carbamazepine [Tegretol] 100 mg PO BIDCM tablet 01/19/18 Escitalopram Oxalate [Lexapro] 10 mg PO DAILY tablet 01/19/18 Melatonin 5 mg PO QHS tablet 01/19/18 Nutritional Supplement [Mckinley - ORANGE FLAVOR] 1 packet PO BIDCM packet 01/19/18 Pantoprazole Sodium [Protonix] 40 mg PO DAILY tablet 01/19/18 Senna/Docusate Sodium [Senokot-S] 2 tablet PO BID tablet 01/19/18 Primary Care Physician: James Palafox DO [Primary Care Provider] - Proposed Discharge Date: 01/19/18
[2018-01-19 11:00] VITALS: BP 125/66; PULSE 89; RESP 17; TEMP 36.6; O2SAT 98
--- NOTE | 2018-01-19 11:15 | NURSING ---
Report given to [facility] nurse and patient discharged.
--- NOTE | 2018-01-19 13:14 | CASEMGMT ---
Insurance Notified insurance of resident discharge on 01/19/18 to [facility]. Auth#[id number] Lavinia JONES, DIRECTOR OF ENTERPRISE STRATEGY
== END 2018-01-19 11:15 | disposition skilled nursing facility (03) | DRG 249 ==
PROVIDERS: Admitting Provider Psychiatry & Neurology Neurology; Family Provider Preventive Medicine Occupational Medicine; PCP Preventive Medicine Occupational Medicine; Visit Provider Internal Medicine
DX: S82.841D Displaced bimalleolar fracture of right lower leg, subsequent encounter for closed fracture with routine healing (principal); G35 Multiple sclerosis; C50.919 Malignant neoplasm of unspecified site of unspecified female breast; G47.30 Sleep apnea, unspecified; Z87.11 Personal history of peptic ulcer disease; W19.XXXD Unspecified fall, subsequent encounter; F32.9 Major depressive disorder, single episode, unspecified; Z87.891 Personal history of nicotine dependence; G50.0 Trigeminal neuralgia; Z79.899 Other long term (current) drug therapy
CPT/HCPCS: 36415; 80048; 85027; 92606; 97110; 97116; 97166; 97530; 97535

== ENCOUNTER → 2018-04-04 05:00 | Outpatient (REF) | payer MEDICAID, SELFPAY ==
[2018-04-04 09:26] LABS: Hematocrit 41.8 % (37-47); Hemoglobin 13.2 g/dl (12.0-15.0); Mean Corp Hgb Conc 31.6 g/gl (32-36); Mean Corpuscular Hgb 29.9 pg (27.0-32.0); Mean Corpuscular Volume 94.8 fL (81-99); Mean Platelet Vol. 10.6 fl (6.2-12.0); Platelet Count 298 K/mm3 (150-450); RBC Distribution Width CV 13.5 % (11.6-14.6); RBC Distribution Width SD 45.7 fl (35.1-43.9); Red Blood Count 4.41 M/mm3 (4.2-5.4)
[2018-04-04 09:33] LABS: Scan Indicated on CBC? Y/N NO
[2018-04-04 09:39] LABS: Anion Gap 7 (5-15); BUN 14 mg/dL (7-18); BUN/Creat Ratio 18.3 RATIO (10-20); Calcium,Total 9.2 mg/dL (8.5-10.1); Chloride 108 mmol/L (98-107); Creatinine, Serum 0.76 mg/dL (0.55-1.02); EST Glomerular Filtration Rate 82 mL/min (>60); Est Glom Filt Rate - Afr Amer 99 mL/min (>60); Glucose 88 mg/dL (74-106); Potassium 4.5 mmol/L (3.5-5.1); Sodium Level 143 mmol/L (136-145)
== END ==
LOC: OLS.WHLEAS 05:00
PROVIDERS: Visit Provider Family Medicine
DX: G35 Multiple sclerosis (principal); F33.9 Major depressive disorder, recurrent, unspecified; M62.81 Muscle weakness (generalized)
CPT/HCPCS: 36415; 80048; 85027

== ENCOUNTER → 2018-04-22 05:00 | Outpatient (REF) | payer MEDICAID, SELFPAY ==
[2018-04-22 08:53] LABS: Absolute Lymphocyte Count 1.77 X10^3/ul (0.83-4.51); Absolute Neutrophil Count 1.8 X10^3/uL (2.0-7.7); Basophil# 0.05 X10^3/uL; Basophil% 1.2 % (0-1); Eosinophil# 0.07 X10^3/uL; Eosinophils% 1.7 % (0-5); Hematocrit 41.4 % (37-47); Hemoglobin 13.3 g/dl (12.0-15.0); Lymphocyte # 1.77 X10^3/ul (4.0); Lymphocyte % 43.6 % (19-41); Mean Corp Hgb Conc 32.1 g/gl (32-36); Mean Corpuscular Hgb 30.2 pg (27.0-32.0); Mean Corpuscular Volume 94.1 fL (81-99); Mean Platelet Vol. 11.1 fl (6.2-12.0); Monocyte# 0.36 X10^3/uL; Monocyte% 8.9 % (0-10); Neutrophil # 1.81 X10^3/uL (2.7-7.7); Neutrophil % 44.6 % (47-70); Platelet Count 260 K/mm3 (150-450); RBC Distribution Width CV 13.5 % (11.6-14.6); White Blood Count 4.1 K/mm3 (4.4-11.0)
[2018-04-22 08:56] LABS: POSITIVE COUNT NO; POSITIVE DIFFERENTIAL NO; POSITIVE MORPHOLOGY NO
[2018-04-22 09:03] LABS: Anion Gap 7 (5-15); BUN 8 mg/dL (7-18); Chloride 104 mmol/L (98-107); Creatinine, Serum 0.73 mg/dL (0.55-1.02); EST Glomerular Filtration Rate 87 mL/min (>60); Est Glom Filt Rate - Afr Amer 105 mL/min (>60); Glucose 80 mg/dL (74-106); Potassium 3.9 mmol/L (3.5-5.1); Sodium Level 140 mmol/L (136-145)
== END ==
LOC: OLS.WHLEAS 05:00
PROVIDERS: Visit Provider Family Medicine
DX: G35 Multiple sclerosis (principal); F33.9 Major depressive disorder, recurrent, unspecified; G50.0 Trigeminal neuralgia
CPT/HCPCS: 36415; 80048; 85025

== ENCOUNTER → 2018-05-06 05:00 | Outpatient (REF) | payer SELFPAY ==
[2018-05-06 07:54] LABS: Carbamazepine (Tegretol) 9.3 ug/mL (4.0-12.0)
== END ==
LOC: OLS.WHLEAS 05:00
PROVIDERS: Visit Provider Family Medicine
DX: G35 Multiple sclerosis (principal)
CPT/HCPCS: 36415; 80156

== ENCOUNTER → 2018-05-13 05:00 | Outpatient (REF) | payer MEDICAID, SELFPAY ==
[2018-05-13 08:06] LABS: Hematocrit 39.3 % (37-47); Hemoglobin 12.2 g/dl (12.0-15.0); Mean Corpuscular Hgb 29.5 pg (27.0-32.0); Mean Corpuscular Volume 95.2 fL (81-99); Mean Platelet Vol. 10.2 fl (6.2-12.0); Platelet Count 297 K/mm3 (150-450); RBC Distribution Width CV 14.5 % (11.6-14.6); Red Blood Count 4.13 M/mm3 (4.2-5.4); White Blood Count 3.7 K/mm3 (4.4-11.0)
[2018-05-13 08:11] LABS: Scan Indicated on CBC? Y/N NO
[2018-05-13 08:12] LABS: Anion Gap 8 (5-15); BUN 10 mg/dL (7-18); BUN/Creat Ratio 14.2 RATIO (10-20); Chloride 109 mmol/L (98-107); EST Glomerular Filtration Rate 90 mL/min (>60); Est Glom Filt Rate - Afr Amer 109 mL/min (>60); Glucose 89 mg/dL (74-106); Potassium 4.4 mmol/L (3.5-5.1); Sodium Level 145 mmol/L (136-145)
== END ==
LOC: OLS.WHLEAS 05:00
PROVIDERS: Visit Provider Family Medicine
DX: R69 Illness, unspecified (principal)
CPT/HCPCS: 36415; 80048; 85027

== ENCOUNTER → 2018-06-27 06:10 | Outpatient (REF) | payer MEDICAID, SELFPAY ==
[2018-06-27 07:33] LABS: Hemoglobin 12.6 g/dl (12.0-15.0); Mean Corp Hgb Conc 31.5 g/gl (32-36); Mean Corpuscular Hgb 30.4 pg (27.0-32.0); Mean Corpuscular Volume 96.6 fL (81-99); Mean Platelet Vol. 10.1 fl (6.2-12.0); Platelet Count 252 K/mm3 (150-450); RBC Distribution Width CV 14.6 % (11.6-14.6); Red Blood Count 4.14 M/mm3 (4.2-5.4); White Blood Count 4.9 K/mm3 (4.4-11.0)
[2018-06-27 07:44] LABS: Scan Indicated on CBC? Y/N NO
[2018-06-27 07:45] LABS: Anion Gap 8 (5-15); BUN 10 mg/dL (7-18); BUN/Creat Ratio 15.2 RATIO (10-20); Calcium,Total 8.8 mg/dL (8.5-10.1); Chloride 107 mmol/L (98-107); Creatinine, Serum 0.66 mg/dL (0.55-1.02); EST Glomerular Filtration Rate 97 mL/min (>60); Est Glom Filt Rate - Afr Amer 117 mL/min (>60); Glucose 83 mg/dL (74-106); Potassium 3.7 mmol/L (3.5-5.1); Sodium Level 140 mmol/L (136-145)
== END ==
LOC: OLS.WHLEAS 06:10
PROVIDERS: Visit Provider Family Medicine
DX: G35 Multiple sclerosis (principal); M62.81 Muscle weakness (generalized); K21.9 Gastro-esophageal reflux disease without esophagitis
CPT/HCPCS: 36415; 80048; 85027

== ENCOUNTER → 2018-07-12 17:46 | Outpatient (CLI) | payer MEDICAID, SELFPAY ==
--- NOTE | 2018-07-12 18:15 | MRI_ITS ---
STUDY: MRI BRAIN WITH AND WITHOUT CONTRAST REASON FOR EXAM: Female, 63 years old. Multiple sclerosis TECHNIQUE: Standardized multiplanar fat and water weighted pulse sequences were obtained. 14 ml of Dotarem contrast material was administered intravenously for the contrast portion of the examination. COMPARISON: MRI of the brain on June 04, 2014 FINDINGS: Mild atrophy and advanced periventricular white matter disease with many of the lesions involving the corpus callosum consistent with known multiple sclerosis.. There appears to be involvement of the periaqueductal castrejon matter. Normal bilateral basal ganglia. Normal thalami. There is no extra-axial fluid accumulation. Normal flow voids within the major intracranial circulation suggesting patency by spin echo criteria. Normal venous enhancement. There is no enhancing intra-axial or extra-axial abnormality. Mildly prominent pituitary for age but no focal mass demonstrated. Normal, infundibular stalk, optic chiasm and hypothalamus. Normal tectal plate and pineal gland. There is a small lesion within the right cerebellar hemisphere and right pontine body. Normal midbrain, and medulla. . Normal basal cisterns. Normal bilateral temporal bones. Normal bilateral internal auditory canals. No demonstrated orbital abnormality, within the constraints of a routine brain study. Minor mucosal thickening of the ethmoid air cells. Normal calvarium and skull base. Normal visualized soft tissue structures. Normal visualized upper cervical spine. There is a tiny focus of enhancement in the right ed consistent with active demyelination MRI/Brain W/WO Contrast IMPRESSION: Findings consistent with advanced multiple sclerosis as per clinical history with tiny enhancing lesion in the right ed consistent with actively demyelinating plaque Other findings as above Electronically Signed: Isaiah Dominguez MD at 20:00 EDT , Service support ,
== END ==
PROVIDERS: Family Provider Preventive Medicine Occupational Medicine; PCP Preventive Medicine Occupational Medicine; Referring Provider Nurse Practitioner Acute Care; Visit Provider Nurse Practitioner Acute Care
DX: G35 Multiple sclerosis (principal); R41.3 Other amnesia; R53.1 Weakness
CPT/HCPCS: 70553

== ENCOUNTER → 2018-07-15 16:13 | Outpatient (CLI) | payer MEDICAID, SELFPAY ==
[2018-07-15 17:05] LABS: Absolute Neutrophil Count 2.1 X10^3/uL (2.0-7.7); Basophil# 0.05 X10^3/uL; Eosinophil# 0.09 X10^3/uL; Eosinophils% 1.8 % (0-5); Hematocrit 40.9 % (37-47); Hemoglobin 13.3 g/dl (12.0-15.0); Lymphocyte % 47.2 % (19-41); Mean Corp Hgb Conc 32.5 g/gl (32-36); Mean Corpuscular Hgb 31.9 pg (27.0-32.0); Mean Corpuscular Volume 98.1 fL (81-99); Mean Platelet Vol. 10.3 fl (6.2-12.0); Monocyte# 0.47 X10^3/uL; Monocyte% 9.2 % (0-10); Neutrophil # 2.07 X10^3/uL (2.7-7.7); Neutrophil % 40.6 % (47-70); Platelet Count 335 K/mm3 (150-450); RBC Distribution Width CV 13.9 % (11.6-14.6); RBC Distribution Width SD 49.3 fl (35.1-43.9); Red Blood Count 4.17 M/mm3 (4.2-5.4); White Blood Count 5.1 K/mm3 (4.4-11.0)
[2018-07-15 17:07] LABS: POSITIVE COUNT NO; POSITIVE DIFFERENTIAL NO; POSITIVE MORPHOLOGY NO
[2018-07-15 17:13] LABS: Erythrocyte Sedimentation Rate 17 mm/hr (0-30)
[2018-07-15 17:52] LABS: AST(SGOT) 11 U/L (15-37); Alanine Aminotransfer ALT/SGPT 20 U/L (13-56); Albumin, Serum 3.7 g/dL (3.2-5.0); Alkaline Phosphatase 98 U/L (45-117); Anion Gap 9 (5-15); BUN 12 mg/dL (7-18); BUN/Creat Ratio 16.1 RATIO (10-20); Calcium,Total 8.8 mg/dL (8.5-10.1); Chloride 102 mmol/L (98-107); Creatinine, Serum 0.75 mg/dL (0.55-1.02); EST Glomerular Filtration Rate 84 mL/min (>60); Est Glom Filt Rate - Afr Amer 101 mL/min (>60); Globulin 3.8 g/dL (2.2-4.2); Glucose 98 mg/dL (74-106); Magnesium 2.2 mg/dL (1.6-2.6); Phosphorus 3.3 mg/dL (2.5-4.9); Potassium 3.6 mmol/L (3.5-5.1); Protein, Total 7.5 g/dL (6.4-8.2); Sodium Level 139 mmol/L (136-145)
[2018-07-17 10:34] LABS: HEPATITIS B SURFACE AG Negative (Negative); Hep B Surface Antibodies Non Reactive (.)
== END ==
PROVIDERS: Family Provider Preventive Medicine Occupational Medicine; PCP Preventive Medicine Occupational Medicine; Referring Provider Nurse Practitioner Acute Care; Visit Provider Nurse Practitioner Acute Care
DX: G35 Multiple sclerosis (principal)
CPT/HCPCS: 36415; 80053; 83735; 84100; 85025; 85652; 86706; 87340

== ENCOUNTER → 2018-07-18 05:00 | Outpatient (REF) | payer MEDICAID, SELFPAY ==
[2018-07-18 08:18] LABS: Anion Gap 7 (5-15); BUN 12 mg/dL (7-18); BUN/Creat Ratio 15.7 RATIO (10-20); Calcium,Total 8.9 mg/dL (8.5-10.1); Chloride 105 mmol/L (98-107); Creatinine, Serum 0.76 mg/dL (0.55-1.02); EST Glomerular Filtration Rate 82 mL/min (>60); Est Glom Filt Rate - Afr Amer 99 mL/min (>60); Glucose 86 mg/dL (74-106); Potassium 3.9 mmol/L (3.5-5.1); Sodium Level 139 mmol/L (136-145)
[2018-07-18 08:25] LABS: Hematocrit 42.3 % (37-47); Hemoglobin 13.4 g/dl (12.0-15.0); Mean Corp Hgb Conc 31.7 g/gl (32-36); Mean Corpuscular Hgb 30.8 pg (27.0-32.0); Mean Corpuscular Volume 97.2 fL (81-99); Mean Platelet Vol. 10.5 fl (6.2-12.0); Platelet Count 320 K/mm3 (150-450); RBC Distribution Width CV 14.1 % (11.6-14.6); RBC Distribution Width SD 50.6 fl (35.1-43.9); Red Blood Count 4.35 M/mm3 (4.2-5.4); White Blood Count 4.5 K/mm3 (4.4-11.0)
[2018-07-18 08:28] LABS: Scan Indicated on CBC? Y/N NO
== END ==
LOC: OLS.WHLEAS 05:00
PROVIDERS: Visit Provider Family Medicine
DX: G35 Multiple sclerosis (principal)
CPT/HCPCS: 36415; 80048; 85027

== ENCOUNTER → 2018-08-18 05:45 | Outpatient (REF) | payer MEDICAID, SELFPAY ==
[2018-08-18 07:39] LABS: Hematocrit 41.4 % (37-47); Hemoglobin 13.2 g/dl (12.0-15.0); Mean Corp Hgb Conc 31.9 g/gl (32-36); Mean Corpuscular Hgb 31.7 pg (27.0-32.0); Mean Corpuscular Volume 99.3 fL (81-99); Mean Platelet Vol. 10.7 fl (6.2-12.0); Platelet Count 295 K/mm3 (150-450); RBC Distribution Width CV 13.4 % (11.6-14.6); Red Blood Count 4.17 M/mm3 (4.2-5.4); White Blood Count 4.2 K/mm3 (4.4-11.0)
[2018-08-18 07:41] LABS: Scan Indicated on CBC? Y/N NO
[2018-08-18 07:43] LABS: Anion Gap 9 (5-15); BUN 12 mg/dL (7-18); BUN/Creat Ratio 16.3 RATIO (10-20); Chloride 109 mmol/L (98-107); Creatinine, Serum 0.74 mg/dL (0.55-1.02); EST Glomerular Filtration Rate 85 mL/min (>60); Est Glom Filt Rate - Afr Amer 103 mL/min (>60); Glucose 90 mg/dL (74-106); Potassium 3.9 mmol/L (3.5-5.1); Sodium Level 143 mmol/L (136-145)
== END ==
LOC: OLS.WHLEAS 05:45
PROVIDERS: Visit Provider Family Medicine
DX: M62.81 Muscle weakness (generalized) (principal); F33.9 Major depressive disorder, recurrent, unspecified; G35 Multiple sclerosis; G50.0 Trigeminal neuralgia
CPT/HCPCS: 36415; 80048; 85027

== ENCOUNTER 2018-10-03 21:31 | Emergency (ER) | payer MEDICAID, SELFPAY ==
[2018-10-03 21:32] VITALS: BP 166/86; PULSE 98; RESP 16; TEMP 36.5; O2SAT 95; BMI 31.1
--- NOTE | 2018-10-03 21:59 | RAD_ITS ---
STUDY: X-RAY - RIGHT FOOT CLINICAL: Female, 63 years old. Surgery 3 months ago now with increased pain TECHNIQUE: 3 view(s) of the foot. COMPARISON: None. FINDINGS: Diffuse demineralization. Hardware in the medial and lateral malleoli. Soft tissue swelling. No acute fractures are seen. Remote deformity of the medial malleolus. No osteolytic lesions are seen. RAD/Foot min 3 Views IMPRESSION: No evidence of acute fracture or osteolytic lesion. Electronically Signed: Franco Bobo MD at 22:48 EST Tel , Service support ,
--- NOTE | 2018-10-03 21:59 | RAD_ITS ---
STUDY: X-RAY - RIGHT ANKLE REASON FOR EXAM: Female, 63 years old. Surgery 3 months ago now with increased pain TECHNIQUE: 3 view(s) of the ankle. COMPARISON: 06/11/2014 FINDINGS: Bimalleolar fusions. Remote deformity of the medial malleolus. Soft tissue swelling. Mortise is intact. No acute fractures or osteolytic lesions are seen. RAD/Ankle min 3 Views IMPRESSION: No acute osseous abnormality is evident. Electronically Signed: Franco Bobo MD at 23:01 EST Tel , Service support ,
[2018-10-03] MEDS: Ondansetron ODT 4 MG Tablet PO (22:17)
[2018-10-03] MEDS: morphine 10 MG/ML Syringe 8 MG SC (22:17)
--- NOTE | 2018-10-03 22:38 | ED.VISSUMM ---
- ER Visit Summary Date of Service: 10/03/18 Chief Complaint: [] Right ankle pain history of fracture 3 months ago History of Present Illness: The patient is a 63 F [] she reports she suffered a fracture of her right ankle or foot 3 months ago was treated [facility] with surgery, she indicates she recovered she indicates today she felt as if the ankle structures Shifting or moving and her ankle became loose, she suffered no direct trauma no fever no cough, she came in because of the persistent sense of ankle instability and some pain. No knee pain. Her other health conditions have all been stable she has no other complaints, specifically she denies any specific or direct trauma to the ankle other than being up on it and walking possibly more than normal given the holidays Physical Examination: [] 166/86 afebrile General, no distress resting comfortably HEENT is generally unremarkable The neck is supple no adenopathy Cardiovascular, regular rate and rhythm Lungs, clear bilateral Abdomen, soft nontender Extremities, no clubbing cyanosis or edema, she has a vague diffuse discomfort primarily to the ankle there is no warmth she is able dorsi and plantarflex the foot there is no signs of joint infection is not tender pulses are symmetric toes are well-perfused with good capillary refill the tib-fib and knee are unremarkable she indicates the foot and the ankle both have some discomfort to them, I cannot appreciate any obvious instability to the ankle Neurologic, awake alert answering questions appropriately moving all 4 extremities Test Results: [] Emergency Department Course and Treatment: [] X-rays of the ankle and the foot are obtained, there are metallic plates and screws in place in the ankle there are no signs of prior fracture to the foot, and the x-ray shows nothing acute in either the foot of the ankle I explained the above the patient I explained I cannot really explained to her why she feels if her ankle is shifting or unstable, she has a large walking boot and walking devices she can use at home she would prefer to try an Aircast as she has trouble with the weight of the walking boot, so she is fitted with an Aircast she will use her walking devices at home she will be prescribed Tylenol for pain, Percocet No. 4 ice elevation and she will follow-up with her orthopedic surgeons in the next few days and return for change in symptoms Treatment Plan: [] Disposition: [] Home stable Impression: [] Right ankle pain etiology unclear, prior right ankle fracture with ORIF This note was generated with [employer] dictation software. It may contain incorrect words, spelling, and punctuation that were not noted in review of the chart prior to signing ED Disposition - Plan for ED Patient: Chief Complaint: Lower Extremity Injury Referrals: James Palafox DO [Primary Care Provider] -
--- NOTE | 2018-10-03 22:41 | ED.DEP ---
ED Disposition - Plan for ED Patient: Chief Complaint: Lower Extremity Injury Instructions: ED Sprain Ankle W X Ray Prescriptions: Oxycodone HCl/Acetaminophen [Percocet 5/325] 1 tab PO Q6H PRN PRN 3 Days #10 tab PRN Reason: Pain Referrals: James Palafox DO [Primary Care Provider] - Additional Instructions: Follow-up with your orthopedic surgeons in the next few days
[2018-10-03 23:18] VITALS: PULSE 76; O2SAT 98
== END 2018-10-03 23:28 | disposition home or self-care (01) ==
PROVIDERS: Emergency Provider Emergency Medicine; Family Provider Preventive Medicine Occupational Medicine; PCP Preventive Medicine Occupational Medicine
DX: M25.571 Pain in right ankle and joints of right foot (principal); M25.371 Other instability, right ankle; Z79.899 Other long term (current) drug therapy; Z87.81 Personal history of (healed) traumatic fracture
CPT/HCPCS: 73610; 73630; 96372; 99283

== ENCOUNTER → 2018-10-18 11:58 | Outpatient (CLI) | payer MEDICAID, SELFPAY ==
[2018-10-03 21:32] VITALS: BMI 31.1
--- NOTE | 2018-10-18 12:25 | EKG12_ITS ---
Test Reason : MS Blood Pressure : / mmHG Vent. Rate : 068 BPM Atrial Rate : 068 BPM P-R Int : 138 ms QRS Dur : 074 ms QT Int : 378 ms P-R-T Axes : 036 -39 009 degrees QTc Int : 401 ms Normal sinus rhythm Left axis deviation Cannot rule out Inferior infarct , age undetermined Abnormal ECG Confirmed by ERIC ALEJANDRA, RAYMUNDO ([id number]), commercial production editor FABY VITAL ([id number] on 10/19/2018 2:18:00 PM Referred By: Donya Muniz Confirmed By:RAYMUNDO REYES MD
[2018-10-18 12:40] LABS: Hematocrit 41.1 % (37-47); Hemoglobin 12.7 g/dl (12.0-15.0); Mean Corp Hgb Conc 30.9 g/gl (32-36); Mean Corpuscular Hgb 30.7 pg (27.0-32.0); Mean Corpuscular Volume 99.3 fL (81-99); Mean Platelet Vol. 10.6 fl (6.2-12.0); Platelet Count 293 K/mm3 (150-450); RBC Distribution Width CV 13.5 % (11.6-14.6); Red Blood Count 4.14 M/mm3 (4.2-5.4); White Blood Count 5.2 K/mm3 (4.4-11.0)
[2018-10-18 12:44] LABS: Scan Indicated on CBC? Y/N NO
[2018-10-18 13:10] LABS: AST(SGOT) 12 U/L (15-37); Alanine Aminotransfer ALT/SGPT 19 U/L (13-56); Albumin, Serum 3.5 g/dL (3.2-5.0); Alkaline Phosphatase 118 U/L (45-117); Globulin 3.7 g/dL (2.2-4.2); Protein, Total 7.2 g/dL (6.4-8.2)
[2018-10-20 14:54] LABS: V-Zoster IgG (Immunity) > 4000 index (Immune >165)
== END ==
PROVIDERS: Family Provider Preventive Medicine Occupational Medicine; PCP Preventive Medicine Occupational Medicine; Referring Provider Nurse Practitioner Acute Care; Visit Provider Nurse Practitioner Acute Care
DX: G35 Multiple sclerosis (principal)
CPT/HCPCS: 36415; 80076; 85027; 86787; 93005

== ENCOUNTER → 2018-10-27 15:06 | Outpatient (CLI) | payer MEDICAID, SELFPAY ==
[2018-10-03 21:32] VITALS: BMI 31.1
--- NOTE | 2018-10-27 15:12 | EKG12_ITS ---
Test Reason : MS, POST MED ADMINIS Blood Pressure : / mmHG Vent. Rate : 058 BPM Atrial Rate : 058 BPM P-R Int : 164 ms QRS Dur : 078 ms QT Int : 408 ms P-R-T Axes : 052 -40 021 degrees QTc Int : 400 ms Sinus bradycardia Left axis deviation Confirmed by DEYVI ALEJANDRA, KIERSTEN ([id number]), business editor MATT CARMEN ([id number]) on 10/31/2018 9:49:04 AM Referred By: Donya Muniz Confirmed By:KIERSTEN CARNES MD
--- OUTSIDE RECORDS SUMMARY | 2019-01-01 10:32 | XMS RPT_ITS ---
:1955 Author Organization OHIP Support Name Relationship Address Phone CORBY RESENDIZ Unavailable [address] + [place] [address] RASHEL RESENDIZ Unavailable [address] + [place] [address] UE Unavailable Unavailable Unavailable CORBY RESENDIZ Unavailable [address] + [place] [address] RASHEL RESENDIZ Unavailable [address] + [place] [address] UE Unavailable Unavailable Unavailable CORBY RESENDIZ Unavailable [address] + [place] [address] RASHEL RESENDIZ Unavailable [address] + [place] [address] UE Unavailable Unavailable Unavailable CORBY RESENDIZ Unavailable [address] + [place] [address] RASHEL RESENDIZ Unavailable [address] + [place] [address] UE Unavailable Unavailable Unavailable CORBY BURR Unavailable Unavailable + RASHEL BURR Unavailable Unavailable + RASHEL BURR Unavailable Unavailable + CORBY BURR Unavailable Unavailable + Corby Resendiz Unavailable [address] + [place] [address] Rashel Resendiz Unavailable [address] + [place] [address] UE Unavailable Unavailable Unavailable Corby Resendiz Unavailable [address] + [place] [address] Carafelli, Peter Unavailable [address] + [place] [address] UE Unavailable Unavailable Unavailable CARAFELLI, CORBY Unavailable [address] + [place] [address] CARAFELLI, PETER Unavailable [address] + [place] [address] UE Unavailable Unavailable Unavailable CARAFELLI, CORBY Unavailable [address] + [place] [address] CARAFELLI, RASHEL Unavailable [address] + [place] [address] UE Unavailable Unavailable Unavailable CARAPALLI, CORBY Unavailable Unavailable + CARAPALLI, RASHEL Unavailable Unavailable + CARAPALLI, RASHEL Unavailable Unavailable + CARAPALLI, CORBY Unavailable Unavailable + Carafelli, Corby Unavailable [address] + [place] [address] Carafelli, Rashel Unavailable [address] + [place] [address] UE Unavailable Unavailable Unavailable CARAPALLI, CORBY Unavailable Unavailable + CARAPALLI, RASHEL Unavailable Unavailable + CARAPALLI, RASHEL Unavailable Unavailable + CARAPALLI, CORBY Unavailable Unavailable + Carafelli, Corby Unavailable [address] + [place] [address] Carcaleb, Rashel Unavailable [address] + [place] [address] UE Unavailable Unavailable Unavailable Carafelli, Corby Unavailable [address] + [place] [address] Carafelli, Peter Unavailable [address] + [place] [address] UE Unavailable Unavailable Unavailable Carafelli, Corby Unavailable [address] + [place] [address] CarafeantonioiRashel Unavailable [address] + [place] [address] UE Unavailable Unavailable Unavailable Astrid, Corby Unavailable [address] + [place] [address] FilippoafellRashel thurman Unavailable [address] + [place] [address] UE Unavailable Unavailable Unavailable FILIPPOTANNERFRANSICO CORBY Unavailable Unavailable + RASHEL BURR Unavailable Unavailable + FILIPPOAPARASHEL BATEMAN Unavailable Unavailable + CARTANNERLLI, CORBY Unavailable Unavailable + Filippoermafransico Corby Unavailable [address] + [place] [address] Rashel Resendiz Unavailable [address] + [place] [address] UE Unavailable Unavailable Unavailable Filippoermafransico, Corby Unavailable [address] + [place] [address] Rashel Resendiz Unavailable [address] + [place] [address] UE Unavailable Unavailable Unavailable Filippoermaantonioolman, Corby Unavailable [address] + [place] [address] Rashel Resendiz Unavailable [address] + [place] [address] UE Unavailable Unavailable Unavailable FILIPPOCALEB, CORBY Unavailable [address] + [place] [address] FILIPPOAFELLRASHEL Thurman Unavailable [address] + [place] [address] UE Unavailable Unavailable Unavailable ASTRID, CORBY Unavailable [address] + [place] [address] RASHEL RESENDIZ Unavailable [address] + [place] [address] UE Unavailable Unavailable Unavailable JULITOI, CORBY Unavailable [address] + [place] [address] RASHEL RESENDIZ Unavailable [address] + [place] [address] UE Unavailable Unavailable Unavailable CARERMALLI, CORBY Unavailable [address] + [place] [address] RASHEL RESENDIZ Unavailable [address] + [place] [address] UE Unavailable Unavailable Unavailable ASTRID CORBY Unavailable [address] + [place] [address] RASHEL RESENDIZ Unavailable [address] + [place] [address] UE Unavailable Unavailable Unavailable CARERMALLI, CORBY Unavailable [address] + [place] [address] RASHEL RESENDIZ Unavailable [address] + [place] [address] UE Unavailable Unavailable Unavailable JULITOI, CORBY Unavailable [address] + [place] [address] RASHEL RESENDIZ Unavailable [address] + [place] [address] UE Unavailable Unavailable Unavailable JULITOI, CORBY Unavailable [address] + [place] [address] RASHEL RESENDIZ Unavailable [address] + [place] [address] UE Unavailable Unavailable Unavailable ASTRID CORBY Unavailable [address] + [place] [address] RASHEL RESENDIZ Unavailable [address] + [place] [address] UE Unavailable Unavailable Unavailable CHARLIELLI, CORBY Unavailable [address] + [place] [address] RASHEL RESENDIZ Unavailable [address] + [place] [address] UE Unavailable Unavailable Unavailable EFRAI, CORBY Unavailable Unavailable + RASHEL BURR Unavailable Unavailable + RASHEL BURR Unavailable Unavailable + CORBY BURR Unavailable Unavailable + CARTANNERLLI, CORBY Unavailable Unavailable + RASHEL BURR Unavailable Unavailable + RASHEL BURR Unavailable Unavailable + AMINAH, CORBY Unavailable Unavailable + AMINAH, CORBY Unavailable Unavailable + RASHEL BURR Unavailable Unavailable + RASHEL BURR Unavailable Unavailable + AMINAH, CORBY Unavailable Unavailable + Care Team Providers Name Role Phone Kevin Britton Primary Care Unavailable Elizabeth Momin Attending Unavailable Brie Muniz HOUSING AND RESIDENCE LIFE DIRECTOR-C Attending Unavailable Brie Muniz HOUSING AND RESIDENCE LIFE DIRECTOR-C Referring Unavailable Kevin, Britton Primary Care Unavailable Luis Felipe Reyes Attending Unavailable Brie Muniz HOUSING AND RESIDENCE LIFE DIRECTOR-C Referring Unavailable Carpio, Gideon Admitting Unavailable Carpio, Gideon Referring Unavailable Kevin, Rbitton Primary Care Unavailable Gbaruk, Kombian Consulting Unavailable Ricardo Mtz Attending Unavailable Carpio, Gideon Admitting Unavailable Carpio, Gideon Referring Unavailable Kevin, Britton Primary Care Unavailable Gbaruk, Kombian Consulting Unavailable Zay, Christian Attending Unavailable Carpio, Gideon Consulting Unavailable Carpio, Gideon Admitting Unavailable Paintsil, Bend Attending Unavailable Carpio, Gideon Referring Unavailable Kevin, Britton Primary Care Unavailable Gbaruk, Kombian Consulting Unavailable Paintsil, Bend Consulting Unavailable Carpio, Gideon Admitting Unavailable Zay, Christian Attending Unavailable Carpio, Gideon Referring Unavailable Kevin, Britton Primary Care Unavailable Gbaruk, Kombian Consulting Unavailable Zay, Christian Consulting Unavailable Carpio, Gideon Admitting Unavailable Zay, Christian Attending Unavailable Balaji, Gideon Referring Unavailable Kevin, Britton Primary Care Unavailable Gbaruk, Kombian Consulting Unavailable Zay, Christian Consulting Unavailable Carpio, Gideon Admitting Unavailable Zay, Christian Attending Unavailable Carpio, Gideon Referring Unavailable Kevin, Britton Primary Care Unavailable Gbaruk, Kombian Consulting Unavailable Zay, Christian Consulting Unavailable Carpio, Gideon Admitting Unavailable Carpio, Gideon Referring Unavailable Kevin, Rbitton Primary Care Unavailable Gbaruk, Kombian Consulting Unavailable Tiffany Loaiza Attending Unavailable Flavio, Brie HOUSING AND RESIDENCE LIFE DIRECTOR-C Attending Unavailable Flavio, Brie HOUSING AND RESIDENCE LIFE DIRECTOR-C Referring Unavailable [facility] Primary Care Unavailable Gideon Carpio Admitting Unavailable Smith, Ricardo Attending Unavailable Balaji, Gideon Referring Unavailable [facility] Primary Care Unavailable Gbar, Grantmbhelen Consulting Unavailable Kittoe, Ricardo Consulting Unavailable Balaji, Gideon Admitting Unavailable Kittoe, Ricardo Attending Unavailable Balaji, Gideon Referring Unavailable Kevin, Britton Primary Care Unavailable Gbaruk, Kombian Consulting Unavailable Kittoe, Ricardo Consulting Unavailable Kittoe, Ricardo Attending Unavailable Vital, Brayan Attending Unavailable Vital, Brayan Attending Unavailable Vital, Brayan Attending Unavailable Vital, Brayan Attending Unavailable Vital, Brayan Attending Unavailable Vital, Brayan Attending Unavailable Vital, Brayan Attending Unavailable Vital, Brayan Attending Unavailable Flavio, Poyen HOUSING AND RESIDENCE LIFE DIRECTOR-C Attending Unavailable Flavio, Poyen HOUSING AND RESIDENCE LIFE DIRECTOR-C Referring Unavailable [facility] Primary Care Unavailable Vital, Brayan Consulting Unavailable Flavio, Brie HOUSING AND RESIDENCE LIFE DIRECTOR-C Attending Unavailable Flavio, Brie HOUSING AND RESIDENCE LIFE DIRECTOR-C Referring Unavailable [facility] Primary Care Unavailable Vital, Brayan Attending Unavailable Vital, Brayan Attending Unavailable KEVIN, BRITTON Attending Unavailable [facility] Primary Care Unavailable ONEAL ALEJANDRA, KASEY N. Consulting Unavailable SOTO ONEILL, DR. RIVERA Attending Unavailable SOTO ONEILL, DR. RIVERA Referring Unavailable [facility] Unavailable TATIANA KAM Attending Unavailable [facility] Care Unavailable FLORINA ONEILL MD. BRITTON Ferrer Consulting Unavailable WALTER, TATIANA Admitting Unavailable TATIANA KAM Attending Unavailable [facility] Unavailable ONEAL ALEJANDRA, KASEY N. Attending Unavailable [facility] Unavailable ONEAL ALEJANDRA, KASEY N. Attending Unavailable [facility] Unavailable ONEAL ALEJANDRA, KASEY N. 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 8 diagnosis Gideon Rausch [facility] Repository PROCEDURES PROCEDURES No Procedure Records FoundRESULTS RESULTS 12 LEAD ELECTROCARDIOGRAM Observed: 10/31/2018 Status: F Source: DRIFTING 9:49 AM [facility] REPOSITORY [facility] Cardiovascular Services [address] [place] [address] 12 Lead EKG 10/27/18 1518 MR#: [id number] Acct: [id number] Name: JILL GONZALEZ Rep #: [id number] : 1955 63 From: Michael Lancaster MD Attending Dr: Brie Muniz NP Status: REG CLI Ordering Dr: Brie Muniz HOUSING AND RESIDENCE LIFE DIRECTOR-C Date: 10/27/18 Location: [facility] Sex: F C Admitted: Test Reason : MS, POST MED ADMINIS Blood Pressure : / mmHG Vent. Rate : 058 BPM Atrial Rate : 058 BPM P-R Int : 164 ms QRS Dur : 078 ms QT Int : 408 ms P-R-T Axes : 052 -40 021 degrees QTc Int : 400 ms Sinus bradycardia Left axis deviation Confirmed by MICHAEL LANCASTER MD ([id number]), editorial cartoonist MATT CARMEN ([id number]) on 10/31/2018 9:49:04 AM Referred By: Brie Muniz Confirmed By:MICHAEL LANCASTER MD 10/31/18 0949 Date Michael Lancaster MD CC: HOUSING AND RESIDENCE LIFE DIRECTOR Brie Muniz; Britton Palafox DO Signed 12 LEAD ELECTROCARDIOGRAM Observed: 10/19/2018 Status: F Source: [place] 2:18 PM [facility] HOSPITAL REPOSITORY [facility] Cardiovascular Services [address] [place] [address] 12 Lead EKG 10/18/18 1234 MR#: [id number] Acct: [id number] Name: JILL GONZALEZ Rep #: [id number] : 1955 63 From: Luis Felipe Reyes MD Attending Dr: Brie Muniz NP Status: REG CLI Ordering Dr: Brie Muniz HOUSING AND RESIDENCE LIFE DIRECTOR-C Date: 10/18/18 Location: LAB Sex: F C Admitted: Test Reason : MS Blood Pressure : / mmHG Vent. Rate : 068 BPM Atrial Rate : 068 BPM P-R Int : 138 ms QRS Dur : 074 ms QT Int : 378 ms P-R-T Axes : 036 -39 009 degrees QTc Int : 401 ms Normal sinus rhythm Left axis deviation Cannot rule out Inferior infarct , age undetermined Abnormal ECG Confirmed by ERIC ALEJANDRA, LUIS FELIPE ([id number]), editorial cartoonist FABY VITAL ([id number]) on 10/19/2018 2:18:00 PM Referred By: Brie Muniz Confirmed By:LUIS FELIPE REYES MD 10/19/18 1418 Date Luis Felipe Reyes MD CC: JENNIFER Muniz; Britton Palafox DO Signed CBC-COMPLETE BLOOD CNT Collected: 10/18/2018 Status: F Source: SIRI NO DIFF 12:14 PM [facility] REPOSITORY TYPE CODE TESTS RESULT OUT OF RANGE REFERENCE UNITS LAB L100.1000 4.4-11.0 K/mm3 Normal WBC 5.2 LAB L100.1200 4.2-5.4 M/mm3 Low RBC 4.14 LAB L100.1300 12.0-15.0 g/dl Normal HGB 12.7 LAB L100.1400 37-47 % Normal HCT 41.1 LAB L100.1500 81-99 fL High MCV 99.3 LAB L100.1600 27.0-32.0 pg Normal MCH 30.7 LAB L100.1700 32-36 g/gl Low MCHC 30.9 LAB L100.1810 11.6-14.6 % Normal RDW CV 13.5 LAB L100.1820 35.1-43.9 fl High RDW SD 49.0 LAB L100.1900 150-450 K/mm3 Normal PLT 293 LAB L100.2000 6.2-12.0 fl Normal MPV 10.6 Performed By: #### L100.0500 #### [facility] [address]. [place], [place], [id number] LIVER PROFILE Collected: 10/18/2018 Status: F Source: DRIFTING 12:14 PM [facility] REPOSITORY TYPE CODE TESTS RESULT OUT OF RANGE REFERENCE UNITS LAB L501.1500 6.4-8.2 g/dL Normal T PROT 7.2 LAB L501.1800 3.2-5.0 g/dL Normal ALB 3.5 LAB L501.1950 2.2-4.2 g/dL Normal GLOB 3.7 LAB L501.4100 15-37 U/L Low AST 12 LAB L501.4305 45-117 U/L High ALK P 118 LAB L501.4405 13-56 U/L Normal ALT 19 LAB L501.4600 0.20-1.00 mg/dL Normal T BILI 0.30 LAB L501.4700 0.00-0.30 mg/dL Normal D BILI 0.10 Performed By: #### L500.3400 #### [facility] [address]. [place], [place], [id number] V-ZOSTER IGG Collected: 10/18/2018 Status: F Source: DRIFTING (IMMUNITY) 12:14 PM [facility] REPOSITORY TYPE CODE TESTS RESULT OUT OF RANGE REFERENCE UNITS LAB L3400.0000 Immune >165 index Normal VZOST IgG > 4000 27593 Result Comment: Negative <135 Equivocal 135 - 165 Positive >165 A positive result generally indicates exposure to the pathogen or administration of specific immunoglobulins, but it is not indication of active infection or stage of disease. Performed at: CB - [facility] [address] [id number] [employer]: Eyad Burger PhD, Phone: [phone] Performed By: #### L3400.0000 #### [facility] (refer to report for specific site) refer to report for address and phone number EMERGENCY DEPARTMENT Observed: 10/03/2018 Status: F Source: DRIFTING SUMMARY 10:47 PM [facility] REPOSITORY [facility] Medical Records Department [address] [place] [address] Emergency Department Summary 10/03/18 2238 MR#: [id number] Acct: [id number] Name: JILL GONZALEZ Rep #: [id number] : 1955 63 From: Elizabeth Momin MD PCP: Britton Palafox DO Status: REG ER - ER Visit Summary Date of Service: 10/03/18 Chief Complaint: [] Right ankle pain history of fracture 3 months ago History of Present Illness: The patient is a 63 F [] she reports she suffered a fracture of her right ankle or foot 3 months ago was treated [facility] with surgery, she indicates she recovered she indicates today she felt as if the ankle structures Shifting or moving and her ankle became loose, she suffered no direct trauma no fever no cough, she came in because of the persistent sense of ankle instability and some pain. No knee pain. Her other health conditions have all been stable she has no other complaints, specifically she denies any specific or direct trauma to the ankle other than being up on it and walking possibly more than normal given the holidays Physical Examination: [] 166/86 afebrile General, no distress resting comfortably HEENT is generally unremarkable The neck is supple no adenopathy Cardiovascular, regular rate and rhythm Lungs, clear bilateral Abdomen, soft nontender Extremities, no clubbing cyanosis or edema, she has a vague diffuse discomfort primarily to the ankle there is no warmth she is able dorsi and plantarflex the foot there is no signs of joint infection is not tender pulses are symmetric toes are well- perfused with good capillary refill the tib-fib and knee are unremarkable she indicates the foot and the ankle both have some discomfort to them, I cannot appreciate any obvious instability to the ankle Neurologic, awake alert answering questions appropriately moving all 4 extremities Test Results: [] Emergency Department Course and Treatment: [] X-rays of the ankle and the foot are obtained, there are metallic plates and screws in place in the ankle there are no signs of prior fracture to the foot, and the x-ray shows nothing acute in either the foot of the ankle I explained the above the patient I explained I cannot really explained to her why she feels if her ankle is shifting or unstable, she has a large walking boot and walking devices she can use at home she would prefer to try an Aircast as she has trouble with the weight of the walking boot, so she is fitted with an Aircast she will use her walking devices at home she will be prescribed Tylenol for pain, Percocet No. 4 ice elevation and she will follow-up with her orthopedic surgeons in the next few days and return for change in symptoms Treatment Plan: [] Disposition: [] Home stable Impression: [] Right ankle pain etiology unclear, prior right ankle fracture with ORIF This note was generated with [employer] dictation software. It may contain incorrect words, spelling, and punctuation that were not noted in review of the chart prior to signing ED Disposition - Plan for ED Patient: Chief Complaint: Lower Extremity Injury Referrals: Britton Palafox DO [Primary Care Provider] - What to do if you have Problems For any increased pain, shortness of breath, bleeding, nausea or vomiting, chest pain, or any unexpected problems, contact your Primary Care Provider. Call [facility] ([phone]) or report to the closest Emergency Room. Call 911 if necessary. 10/03/18 9584 <Electronically signed by Elizabeth Momin MD> Date Elizabeth Momin MD Cosigner Signature (If Indicated): Date CC: Britton Palafox DO DISCHARGE INSTRUCTION Observed: 10/03/2018 Status: F Source: DRIFTING 10:42 PM [facility] REPOSITORY [facility] Medical Records Department [address] [place] [address] Discharge Instruction 10/03/182240 MR#: [id number] Acct: [id number] Name: JILL GONZALEZ Rep #: [id number] : 1955 63 From: Elizabeth Momin MD PCP: Britton Palafox DO Status: REG ER ED Disposition - Plan for ED Patient: Chief Complaint: Lower Extremity Injury Instructions: ED Sprain Ankle W X Ray Prescriptions: Oxycodone HCl/Acetaminophen [Percocet 5/325] 1 tab PO Q6H PRN PRN 3 Days #10 tab PRN Reason: Pain Referrals: Britton Palafox DO [Primary Care Provider] - Additional Instructions: Follow-up with your orthopedic surgeons in the next few days What to do if you have Problems For any increased pain, shortness of breath, bleeding, nausea or vomiting, chest pain, or any unexpected problems, contact your Primary Care Provider. Call [facility] ([phone]) or report to the closest Emergency Room. Call 911 if necessary. 10/03/182241 <Electronically signed by Elizabeth Momin MD> Date Elizabeth Momin MD Cosigner Signature (If Indicated): Date CC: Britton Palafox DO FOOT MIN 3 VIEWS Observed: 10/03/2018 Status: F Source: SIRI 9:53 PM [facility] REPOSITORY [facility] Imaging Services [address] [place] [address] Foot min 3 Views MR#: [id number] Acct: [id number] Name: JILL GONZALEZ Bruno Rep #: [id number] : 1955 F 63 From: Franco Bobo MD PCP: Britton Palafox DO Status: REG ER Study: Foot min 3 Views Date of Exam: 10/03/18 Exam# [id number] Ordering Dr: Elizabeth Momin MD STUDY: X-RAY - RIGHT FOOT CLINICAL: Female, 63 years old. Surgery 3 months ago now with increased pain TECHNIQUE: 3 view(s) of the foot. COMPARISON: None. FINDINGS: Diffuse demineralization. Hardware in the medial and lateral malleoli. Soft tissue swelling. No acute fractures are seen. Remote deformity of the medial malleolus. No osteolytic lesions are seen. RAD/Foot min 3 Views IMPRESSION: No evidence of acute fracture or osteolytic lesion. Electronically Signed: Franco Bobo MD at 22:48 EST Tel , Service support , CC: MD Sage Momin; Britton Palafox DO Pest Control Technician: Signed ANKLE MIN 3 VIEWS Observed: 10/03/2018 Status: F Source: DRIFTING 9:53 PM [facility] REPOSITORY [facility] Imaging Services [address] [place] [address] Ankle min 3 Views MR#: [id number] Acct: [id number] Name: JILL GONZALEZ Rep #: [id number] : 1955 F 63 From: Franco Bobo MD PCP: Britton Palafox DO Status: REG ER Study: Ankle min 3 Views Date of Exam: 10/03/18 Exam# [id number] Ordering Dr: Elizabeth Momin MD STUDY: X-RAY - RIGHT ANKLE REASON FOR EXAM: Female, 63 years old. Surgery 3 months ago now with increased pain TECHNIQUE: 3 view(s) of the ankle. COMPARISON: 06/11/2014 FINDINGS: Bimalleolar fusions. Remote deformity of the medial malleolus. Soft tissue swelling. Mortise is intact. No acute fractures or osteolytic lesions are seen. RAD/Ankle min 3 Views IMPRESSION: No acute osseous abnormality is evident. Electronically Signed: Franco Bobo MD at 23:01 EST Tel , Service support , CC: MD Sage Momin; Britton Palafox DO Pest Control Technician: Signed PROGRESS Observed: 09/19/2018 Status: COMPLETED Source: [place] 10:10 AM [facility] REPOSITORY O ID: [id number] Author: Chelly Ramirez Service: (none) Author Type: Psychologist Type: Progress Notes Filed: 09/19/2018 10:11 AM Note Text: [facility] SECTION OF NEUROPSYCHOLOGY CLINIC NOTE PATIENT NAME: JILL GONZALEZ CCF #: [id number] ATTENDING STAFF: Chelly Ramirez, Ph.D. DATE OF SERVICE: August 22, 2018 REFERRED BY: Dr. Muniz RELEVANT BACKGROUND: Ms. 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 Ms. Gonzalez was referred for neuropsychological assessment to document her current cognitive strengths and weaknesses in light of concerns regarding memory decline in the context of a history of MS. The result of the evaluation will be shared with the referral source via the electronic medical records and mail. Ms. Gonzalez had significant difficulties recounting a detailed, coherent history. She thought she had a history of MS dating back 26 years. She thought she was seeing me to treat trigeminal nerve pain and denied any cognitive concerns. Per her report, Ms. Gonzalez?s medical history is remarkable for hysterectomy, surgical treatment for breast cancer, tonsillectomy, and hospitalization associated with an accidental overdose of her medications due to confusion. Ms. Gonzalez reported a history of formal mental health treatment to address bereavement following the of her third . She has been prescribed an antidepressant by her PCP but does not believe she needs medication. Ms. Gonzalez indicated that her son has Power of Master Data Analyst for healthcare and financial decision-making. Ms. Gonzalez reported occasional marijuana use in early adulthood, a history of tobacco use (she thought she stopped smoking about 10 years ago), and rare alcohol use. Her medications are listed elsewhere in her chart; Ms. Gonzalez denied any apparent side-effects from her current regimen. Presently, Ms. Gonzalez lives in a prison; she repeatedly expressed her desire to return to her own apartment. Ms. Gonzalez reported good relationships with her son, father, and two brothers. INTERVIEW AND BEHAVIORAL OBSERVATIONS: Ms. Gonzalez presented as a pleasant and cooperative woman. Her conversational speech was fluent but notable for word finding difficulties and mild hypophonia. [place]io thinking and perseveration on specific themes were apparent. She had difficulties recounting a coherent, detailed history and frequently responded with vague, empty phrases. Ms. Gonzalez was frequently off task during the interview. She presented in a flirtatious, naive manner and was mildly disinhibited and giddy at times. Limited insight was apparent during the interview. Ms. Gonzalez relied on a walker to ambulate and was slow to test. She consistently exerted good effort and there were no behavioral reasons to question the validity of the findings. Consequently, the test results were judged to be valid. Ms. Gonzalez was interviewed alone. She denied any cognitive difficulties or problems other than occasional word finding difficulties that she thought were within normal limits and a poor sense of direction. Ms. Gonzalez reported that she is not driving now but that she intends to at some indeterminate point in the future. Ms. Gonzalez relies on a walker due to an orthopedic injury. She reported no concerns with fine motor coordination or senses of vision, hearing, touch, smell, and taste. Her sleep is good, although it is interrupted by frequent trips to the bathroom. Ms. Gonzalez denied any concerns with her appetite, initiative, and interest in pleasurable activities. She reported increased libido. Ms. Gonzalez denied any changes in her personality over the past five to 10 years and characterized her mood as primarily happy and occasionally nervous. She denied symptoms of depression, significant anxiety, hallucinations, delusions, and automatic behaviors that can be seen in neurodegenerative disorders. SUMMARY AND IMPRESSIONS: Ms. Jill Gonzalez is a 63-year-old, right-handed woman whose neuropsychological data were highly consistent with a possible diagnosis of dementia with prominent impairments on measures assessing processing speed, mental arithmetic, mental flexibility, abstract verbal reasoning, confrontation naming, phonemic and semantic word fluency. Impairments were also apparent on simple and complex visuoconstructional tasks ? primarily due to Ms. Gonzalez?s poor organizational approach and/or stimulus bound behavior. Her performance on formal memory tests was inefficient (detailed below). Ms. Gonzalez also demonstrated a number of qualitative interpersonal features suggestive of frontal system dysfunction including concrete thinking, difficulties maintaining her train of thought, mildly disinhibited inappropriate behavior, perseveration, and markedly limited insight. Ms. Gonzalez achieved average scores on tests assessing basic attention, single word reading, and block construction. Her performance on a visuospatial matching test was low average. Ms. Gonzalez?s immediate recall of short stories was average with low average delayed recall and mildly to borderline impaired delayed recognition memory. Her learning curve on a word list learning test plateaued quickly (i.e.., 6, 7, 9, 9, 9 words learned over five trials) and her delayed recall of the same word list was borderline impaired. There were also indications of frequent intrusion errors on this test as well as interference effects. Finally, Ms. Gonzalez denied significant psychological distress per her responses to self-report measures of mood and anxiety. In summary, the current assessment was most notable for impairments in multiple cognitive domains with particularly striking indications of disruption involving frontal networks characterized by slow processing speed, impairments in mental flexibility, inefficient memory, poor organization, and multiple qualitative indications of concrete thinking, reduced insight, disinhibition and perseveration. Ms. Gonzalez also demonstrated significant word finding difficulties. Per the cognitive testing, Ms. Gonzalez appears to meet diagnostic criteria for dementia. I cannot unequivocally state this since she arrived without a collateral and thus, I don?t have data to support that her current level of function represents a clear decline from her previous level of functioning and that her current cognitive symptoms interfere with her ability to function independently. However, based on her presentation and the test data, I suspect that Ms. Gonzalez?s cognitive symptoms result in significant problems in her daily life. In fact, memory problems may be even more apparent outside of the highly structured testing setting. Ms. Gonzalez is currently in a prison, so I have no concerns regarding medication management and driving. Ms. Gonzalez shared that her son has Power of Master Data Analyst, it will be important to confirm that and ensure that a trusted family member is assisting with her bills. Ms. Gonzalez should not return to driving. The current findings will serve as a baseline from which to evaluate any changes in Ms. Gonzalez?s neuropsychological function over time. Thank you for the opportunity to meet with this pleasant woman. Please feel free to contact me if you have any questions regarding my report or recommendations ([phone]). Chelly Ramirez, Ph.D., [facility] Diplomate in Clinical Neuropsychology cc: CARMEN Sidhu, Cristy Neurology; Medical chart; Neuropsychology file Tech time: 2 hours; Staff time: 3 hours PROGRESS Observed: 09/19/2018 Status: COMPLETED Source: [place] 10:07 AM [facility] REPOSITORY HNO ID: [id number] Author: Chelly Ramirez Service: (none) Author Type: Psychologist Type: Progress Notes Filed: 09/19/2018 10:09 AM Note Text: Testing completed under my supervision. I had the opportunity to interview Ms. Gonzalez. Please see my office note dated Aug 22, 2018 with the full report Chelly Ramirez, PhD, [facility] Tech time: 2 hours XR FLUORO < 1HR Observed: 09/10/2018 Status: F Source: [facility] [place] TIME 2:11 PM [facility] REPOSITORY ORIGINAL Images acquired, not reported on this accession number. CNOV Observed: 08/22/2018 Status: COMPLETED Source: [place] 12:00 AM [facility] REPOSITORY Office Visit (PSYTMN) JILL GONZALEZ ([id number]) 1955 F TXT Date Time Provider Department 08/22/18 CHELLY RAMIREZ PSYTMN During your visit today, we recorded the following information about you: Chelly Ramirez, PHD 09/19/2018 10:11 AM Signed [facility] SECTION OF NEUROPSYCHOLOGY CLINIC NOTE PATIENT NAME: JILL GONZALEZ [facility] #: [id number] ATTENDING STAFF: Chelly Ramirez, Ph.D. DATE OF SERVICE: August 22, 2018 REFERRED BY: Dr. Muniz RELEVANT BACKGROUND: Ms. 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 Ms. Gonzalez was referred for neuropsychological assessment to document her current cognitive strengths and weaknesses in light of concerns regarding memory decline in the context of a history of MS. The result of the evaluation will be shared with the referral source via the electronic medical records and mail. Ms. Gonzalez had significant difficulties recounting a detailed, coherent history. She thought she had a history of MS dating back 26 years. She thought she was seeing me to treat trigeminal nerve pain and denied any cognitive concerns. Per her report, Ms. Gonzalez?s medical history is remarkable for hysterectomy, surgical treatment for breast cancer, tonsillectomy, and hospitalization associated with an accidental overdose of her medications due to confusion. Ms. Gonzalez reported a history of formal mental health treatment to address bereavement following the of her third . She has been prescribed an antidepressant by her PCP but does not believe she needs medication. Ms. Gonzalez indicated that her son has Power of Master Data Analyst for healthcare and financial decision-making. Ms. Gonzalez reported occasional marijuana use in early adulthood, a history of tobacco use (she thought she stopped smoking about 10 years ago), and rare alcohol use. Her medications are listed elsewhere in her chart; Ms. Gonzalez denied any apparent side-effects from her current regimen. Presently, Ms. Gonzalez lives in a prison; she repeatedly expressed her desire to return to her own apartment. Ms. Gonzalez reported good relationships with her son, father, and two brothers. INTERVIEW AND BEHAVIORAL OBSERVATIONS: Ms. Gonzalez presented as a pleasant and cooperative woman. Her conversational speech was fluent but notable for word finding difficulties and mild hypophonia. Comerio thinking and perseveration on specific themes were apparent. She had difficulties recounting a coherent, detailed history and frequently responded with vague, empty phrases. Ms. Gonzalez was frequently off task during the interview. She presented in a flirtatious, naive manner and was mildly disinhibited and giddy at times. Limited insight was apparent during the interview. Ms. Gonzalez relied on a walker to ambulate and was slow to test. She consistently exerted good effort and there were no behavioral reasons to question the validity of the findings. Consequently, the test results were judged to be valid. Ms. Gonzalez was interviewed alone. She denied any cognitive difficulties or problems other than occasional word finding difficulties that she thought were within normal limits and a poor sense of direction. Ms. Gonzalez reported that she is not driving now but that she intends to at some indeterminate point in the future. Ms. Gonzalez relies on a walker due to an orthopedic injury. She reported no concerns with fine motor coordination or senses of vision, hearing, touch, smell, and taste. Her sleep is good, although it is interrupted by frequent trips to the bathroom. Ms. Gonzalez denied any concerns with her appetite, initiative, and interest in pleasurable activities. She reported increased libido. Ms. Gonzalez denied any changes in her personality over the past five to 10 years and characterized her mood as primarily happy and occasionally nervous. She denied symptoms of depression, significant anxiety, hallucinations, delusions, and automatic behaviors that can be seen in neurodegenerative disorders. SUMMARY AND IMPRESSIONS: Ms. Jill Gonzalez is a 63-year-old, right-handed woman whose neuropsychological data were highly consistent with a possible diagnosis of dementia with prominent impairments on measures assessing processing speed, mental arithmetic, mental flexibility, abstract verbal reasoning, confrontation naming, phonemic and semantic word fluency. Impairments were also apparent on simple and complex visuoconstructional tasks ? primarily due to Ms. Gonzalez?s poor organizational approach and/or stimulus bound behavior. Her performance on formal memory tests was inefficient (detailed below). Ms. Gonzalez also demonstrated a number of qualitative interpersonal features suggestive of frontal system dysfunction including concrete thinking, difficulties maintaining her train of thought, mildly disinhibited inappropriate behavior, perseveration, and markedly limited insight. Ms. Gonzalez achieved average scores on tests assessing basic attention, single word reading, and block construction. Her performance on a visuospatial matching test was low average. Ms. Gonzalez?s immediate recall of short stories was average with low average delayed recall and mildly to borderline impaired delayed recognition memory. Her learning curve on a word list learning test plateaued quickly (i.e.., 6, 7, 9, 9, 9 words learned over five trials) and her delayed recall of the same word list was borderline impaired. There were also indications of frequent intrusion errors on this test as well as interference effects. Finally, Ms. Gonzalez denied significant psychological distress per her responses to self-report measures of mood and anxiety. In summary, the current assessment was most notable for impairments in multiple cognitive domains with particularly striking indications of disruption involving frontal networks characterized by slow processing speed, impairments in mental flexibility, inefficient memory, poor organization, and multiple qualitative indications of concrete thinking, reduced insight, disinhibition and perseveration. Ms. Gonzalez also demonstrated significant word finding difficulties. Per the cognitive testing, Ms. Gonzalez appears to meet diagnostic criteria for dementia. I cannot unequivocally state this since she arrived without a collateral and thus, I don?t have data to support that her current level of function represents a clear decline from her previous level of functioning and that her current cognitive symptoms interfere with her ability to function independently. However, based on her presentation and the test data, I suspect that Ms. Gonzalez?s cognitive symptoms result in significant problems in her daily life. In fact, memory problems may be even more apparent outside of the highly structured testing setting. Ms. Gonzalez is currently in a prison, so I have no concerns regarding medication management and driving. Ms. Gonzalez shared that her son has Power of Master Data Analyst, it will be important to confirm that and ensure that a trusted family member is assisting with her bills. Ms. Gonzalez should not return to driving. The current findings will serve as a baseline from which to evaluate any changes in Ms. Gonzalez?s neuropsychological function over time. Thank you for the opportunity to meet with this pleasant woman. Please feel free to contact me if you have any questions regarding my report or recommendations ([phone]). Chelly Ramirez, Ph.D., [facility] Diplomate in Clinical Neuropsychology cc: CARMEN Sidhu, Cristy Neurology; Medical chart; Neuropsychology file Tech time: 2 hours; Staff time: 3 hours Allergies As of Date: 08/22/2018 Noted Allergy Reaction BIAXIN (CLARITHROMYCIN) 06/28/2013 8 - GI Upset CODEINE SULFATE 06/28/2013 8 - GI Upset DISALCID (SALSALATE) 06/28/2013 8 - GI Upset EMYCIN (ERYTHROMYCIN) 06/28/2013 8 - GI Upset PENICILLINS 06/28/2013 8 - GI Upset SULFA (SULFONAMIDE ANTIBIOTICS) 06/28/2013 8 - GI Upset ZITHROMAX (AZITHROMYCIN) 06/28/2013 8 - GI Upset ZYRTEC (CETIRIZINE HCL) 06/28/2013 9 - Itching Date Reviewed: 09/09/2016 Reviewed by: Amanda Kc - Fully Assessed Primary Visit Diagnosis:Multiple sclerosis (HCC) [G35] Other Visit Diagnoses: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] Frontal lobe and executive function deficit [R41.844] Dysnomia [R47.01] Prescriptions as of 08/22/2018 Sig: EXEMESTANE 25 MG TABLET TAKE 1 TABLET BY MOUTH DAILY * LORATADINE 10 MG TABLET Take 10 mg by mouth once saray* CALTRATE 600 + D ORAL Take 1 tablet by mouth once d* GARLIQUE ORAL Take 1 capsule by mouth once * METAMUCIL ORAL Take 1 teaspoonful by mouth o* MULTI-VITAMIN ORAL Take 1 tablet by mouth once d* CLORAZEPATE DIPOTASSIUM 7.5 M* Take 1/2 tablet by mouth thre* Problem List As Of Date 08/22/2018 Noted Resolved 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] INVALID FOR* ER+ (estrogen receptor positive status) [Z17.0] INVALID FOR* Weight gain [R63.5] INVALID FOR* Encounter Status:Closed by CHELLY RAMIREZ PHD on 09/19/18 CBC-COMPLETE BLOOD CNT Collected: 08/18/2018 Status: F Source: [place] NO DIFF 5:45 AM [facility] REPOSITORY TYPE CODE TESTS RESULT OUT OF RANGE REFERENCE UNITS LAB L100.1000 4.4-11.0 K/mm3 Low WBC 4.2 LAB L100.1200 4.2-5.4 M/mm3 Low RBC 4.17 LAB L100.1300 12.0-15.0 g/dl Normal HGB 13.2 LAB L100.1400 37-47 % Normal HCT 41.4 LAB L100.1500 81-99 fL High MCV 99.3 LAB L100.1600 27.0-32.0 pg Normal MCH 31.7 LAB L100.1700 32-36 g/gl Low MCHC 31.9 LAB L100.1810 11.6-14.6 % Normal RDW CV 13.4 LAB L100.1820 35.1-43.9 fl High RDW SD 48.0 LAB L100.1900 150-450 K/mm3 Normal PLT 295 LAB L100.2000 6.2-12.0 fl Normal MPV 10.7 Performed By: #### L100.0500 #### [facility] [address] [place], [place], [address] BASIC METABOLIC Collected: 08/18/2018 Status: F Source: [place] PROFILE ([facility] [place]) 5:45 AM [facility] REPOSITORY TYPE CODE TESTS RESULT OUT OF RANGE REFERENCE UNITS LAB L501.0100 74-106 mg/dL Normal GLU 90 Result Comment: Please note revised GLUCOSE reference range effective 2017. LAB L501.1000 7-18 mg/dL Normal BUN 12 LAB L501.1100 0.55-1.02 mg/dL Normal CREAT,SERUM 0.74 Result Comment: The validity of the calculated GFR AND GFRAA in patients over 70 years has not been determined. Clinical correlation is essential. LAB L501.1110 >60 mL/min Normal EST GFR 85 Result Comment: Non- GFR Calc LAB L501.1115 >60 mL/min Normal EST GFR - AA 103 Result Comment: GFR Calc LAB L501.1300 10-20 RATIO Normal BUN/CRE 16.3 LAB L501.2200 8.5-10.1 mg/dL CA Normal 9.0 LAB L501.5300 136-145 mmol/L NA Normal 143 LAB L501.5600 3.5-5.1 mmol/L K Normal 3.9 LAB L501.5900 98-107 mmol/L High CL 109 LAB L501.6100 21.0-32.0 mmol/L Normal CO2 25.0 LAB L501.6200 5-15 Normal GAP 9 Performed By: #### L500.2500 #### [facility] [address] [place], [address] BASIC METABOLIC Collected: 07/18/2018 Status: F Source: [place] PROFILE ([facility] [place]) 6:10 AM [facility] REPOSITORY Order Comment: 511-2 TYPE CODE TESTS RESULT OUT OF RANGE REFERENCE UNITS LAB L501.0100 74-106 mg/dL Normal GLU 86 Result Comment: Please note revised GLUCOSE reference range effective 2017. LAB L501.1000 7-18 mg/dL Normal BUN 12 LAB L501.1100 0.55-1.02 mg/dL Normal CREAT,SERUM 0.76 Result Comment: The validity of the calculated GFR AND GFRAA in patients over 70 years has not been determined. Clinical correlation is essential. LAB L501.1110 >60 mL/min Normal EST GFR 82 Result Comment: Non- GFR Calc LAB L501.1115 >60 mL/min Normal EST GFR - AA 99 Result Comment: GFR Calc LAB L501.1300 10-20 RATIO Normal BUN/CRE 15.7 LAB L501.2200 8.5-10.1 mg/dL CA Normal 8.9 LAB L501.5300 136-145 mmol/L NA Normal 139 LAB L501.5600 3.5-5.1 mmol/L K Normal 3.9 LAB L501.5900 98-107 mmol/L CL Normal 105 LAB L501.6100 21.0-32.0 mmol/L Normal CO2 27.0 LAB L501.6200 5-15 Normal GAP 7 Performed By: #### L500.2500 #### [facility] [address] [place], [place], [address] CBC-COMPLETE BLOOD CNT Collected: 07/18/2018 Status: F Source: [place] NO DIFF 6:10 AM [facility] REPOSITORY Order Comment: 511-2 TYPE CODE TESTS RESULT OUT OF RANGE REFERENCE UNITS LAB L100.1000 4.4-11.0 K/mm3 Normal WBC 4.5 LAB L100.1200 4.2-5.4 M/mm3 Normal RBC 4.35 LAB L100.1300 12.0-15.0 g/dl Normal HGB 13.4 LAB L100.1400 37-47 % Normal HCT 42.3 LAB L100.1500 81-99 fL Normal MCV 97.2 LAB L100.1600 27.0-32.0 pg Normal MCH 30.8 LAB L100.1700 32-36 g/gl Low MCHC 31.7 LAB L100.1810 11.6-14.6 % Normal RDW CV 14.1 LAB L100.1820 35.1-43.9 fl High RDW SD 50.6 LAB L100.1900 150-450 K/mm3 Normal PLT 320 LAB L100.2000 6.2-12.0 fl Normal MPV 10.5 Performed By: #### L100.0500 #### [facility] [address] [place], [place], [id number] CBC W/DIFF, AUTOMATED Collected: 07/15/2018 Status: F Source: [place] 4:15 PM [facility] REPOSITORY TYPE CODE TESTS RESULT OUT OF RANGE REFERENCE UNITS LAB L100.1000 4.4-11.0 K/mm3 Normal WBC 5.1 LAB L100.1200 4.2-5.4 M/mm3 Low RBC 4.17 LAB L100.1300 12.0-15.0 g/dl Normal HGB 13.3 LAB L100.1400 37-47 % Normal HCT 40.9 LAB L100.1500 81-99 fL Normal MCV 98.1 LAB L100.1600 27.0-32.0 pg Normal MCH 31.9 LAB L100.1700 32-36 g/gl Normal MCHC 32.5 LAB L100.1810 11.6-14.6 % Normal RDW CV 13.9 LAB L100.1820 35.1-43.9 fl High RDW SD 49.3 LAB L100.1900 150-450 K/mm3 Normal PLT 335 LAB L100.2000 6.2-12.0 fl Normal MPV 10.3 LAB L100.2100 47-70 % Low NEUT% 40.6 LAB L100.2200 19-41 % High LY% 47.2 LAB L100.2300 0-10 % Normal MONO% 9.2 LAB L100.2400 0-5 % Normal EO% 1.8 LAB L100.2500 0-1 % Normal BASO% 1.0 LAB L100.2550 0.0-0.9 % Normal IM GRAN % 0.200 Result Comment: IG% - Immature Granulocytes (promyelocytes, myelocytes and metamyelocytes) > 1% indicates that a LEFT SHIFT is Present. LAB L100.2620 2.0-7.7 X10 3/uL Normal Absolute Neut 2.1 LAB L100.2720 0.83-4.51 X10 3/ul Normal Absolute Lymph 2.40 Performed By: #### L100.0100, L101.9900 #### [facility] [address] [place], [address] ERYTHROCYTE SED RATE Collected: 07/15/2018 Status: F Source: [place] 4:15 PM [facility] REPOSITORY TYPE CODE TESTS RESULT OUT OF RANGE REFERENCE UNITS LAB L102.0000 0-30 mm/hr Normal SED RATE 17 Performed By: #### L100.0100, L101.9900 #### [facility] [address] [place], [address] COMPREHENSIVE METABOLIC Collected: 07/15/2018 Status: F Source: [place] [facility] 4:15 PM [facility] REPOSITORY TYPE CODE TESTS RESULT OUT OF RANGE REFERENCE UNITS LAB L501.0100 74-106 mg/dL Normal GLU 98 Result Comment: Please note revised GLUCOSE reference range effective 2017. LAB L501.1000 7-18 mg/dL Normal BUN 12 LAB L501.1100 0.55-1.02 mg/dL Normal CREAT,SERUM 0.75 Result Comment: The validity of the calculated GFR AND GFRAA in patients over 70 years has not been determined. Clinical correlation is essential. LAB L501.1110 >60 mL/min Normal EST GFR 84 Result Comment: Non- GFR Calc LAB L501.1115 >60 mL/min Normal EST GFR - AA 101 Result Comment: GFR Calc LAB L501.1300 10-20 RATIO Normal BUN/CRE 16.1 LAB L501.1500 6.4-8.2 g/dL T Normal PROT 7.5 LAB L501.1800 3.2-5.0 g/dL Normal ALB 3.7 LAB L501.1950 2.2-4.2 g/dL Normal GLOB 3.8 LAB L501.2000 0.9-2.4 RATIO Normal A/G 1.0 LAB L501.2200 8.5-10.1 mg/dL CA Normal 8.8 LAB L501.4100 15-37 U/L Low AST 11 LAB L501.4305 45-117 U/L Normal ALK P 98 LAB L501.4405 13-56 U/L Normal ALT 20 LAB L501.4600 0.20-1.00 mg/dL T Normal BILI 0.20 LAB L501.5300 136-145 mmol/L NA Normal 139 LAB L501.5600 3.5-5.1 mmol/L K Normal 3.6 LAB L501.5900 98-107 mmol/L CL Normal 102 LAB L501.6100 21.0-32.0 mmol/L Normal CO2 28.0 LAB L501.6200 5-15 Normal GAP 9 Performed By: #### L500.4050, L501.2300, L501.5200 #### [facility] [address] [place], [address] PHOSPHORUS Collected: 07/15/2018 Status: F Source: [place] 4:15 PM [facility] REPOSITORY TYPE CODE TESTS RESULT OUT OF RANGE REFERENCE UNITS LAB L501.2300 2.5-4.9 mg/dL Normal PHOS 3.3 Performed By: #### L500.4050, L501.2300, L501.5200 #### [facility] [address] [place], [address] MAGNESIUM Collected: 07/15/2018 Status: F Source: [place] 4:15 PM [facility] REPOSITORY TYPE CODE TESTS RESULT OUT OF RANGE REFERENCE UNITS LAB L501.5200 1.6-2.6 mg/dL Normal MG 2.2 Performed By: #### L500.4050, L501.2300, L501.5200 #### [facility] [address] [place], [place], [address] HEPATITIS B SURFACE Collected: 07/15/2018 Status: F Source: [place] AG 4:15 PM [facility] REPOSITORY TYPE CODE TESTS RESULT OUT OF RANGE REFERENCE UNITS LAB L3100.0400 Negative Normal HB Negative SURF AG Result Comment: Performed at: - [facility] [id number] [employer]: Eyad Burger PhD, Phone: [phone] Performed By: #### L3100.0390, L3100.0528 #### [facility] (refer to report for specific site) refer to report for address and phone number HEP B SURFACE Collected: 07/15/2018 Status: F Source: [place] 4:15 PM [facility] REPOSITORY TYPE CODE TESTS RESULT OUT OF RANGE REFERENCE UNITS LAB L3100.0528 . Normal Hep B Non Reactive Stefania AB Result Comment: Non Reactive: Inconsistent with immunity, less than 10 mIU/mL Reactive: Consistent with immunity, greater than 9.9 mIU/mL Performed By: #### L3100.0390, L3100.0528 #### [facility] (refer to report for specific site) refer to report for address and phone number BRAIN W/WO CONTRAST Observed: 07/12/2018 Status: F Source: DRIFTING 5:51 PM [facility] REPOSITORY [facility] Imaging Services [address] [place] [address] Brain W/WO Contrast MR#: [id number] Acct: [id number] Name: JILL GONZALEZ Rep #: [id number] : 1955 F 63 From: Isaiah Dominguez MD PCP: Britton Palafox DO Status: REG CLI Study: Brain W/WO Contrast Date of Exam: 07/12/18 Exam# [id number] Ordering Dr: Brie Muniz HOUSING AND RESIDENCE LIFE DIRECTOR-Uli STUDY: MRI BRAIN WITH AND WITHOUT CONTRAST REASON FOR EXAM: Female, 63 years old. Multiple sclerosis TECHNIQUE: Standardized multiplanar fat and water weighted pulse sequences were obtained. 14 ml of Dotarem contrast material was administered intravenously for the contrast portion of the examination. COMPARISON: MRI of the brain on June 04, 2014 FINDINGS: Mild atrophy and advanced periventricular white matter disease with many of the lesions involving the corpus callosum consistent with known multiple sclerosis.. There appears to be involvement of the periaqueductal castrejon matter. Normal bilateral basal ganglia. Normal thalami. There is no extra-axial fluid accumulation. Normal flow voids within the major intracranial circulation suggesting patency by spin echo criteria. Normal venous enhancement. There is no enhancing intra-axial or extra-axial abnormality. Mildly prominent pituitary for age but no focal mass demonstrated. Normal, infundibular stalk, optic chiasm and hypothalamus. Normal tectal plate and pineal gland. There is a small lesion within the right cerebellar hemisphere and right pontine body. Normal midbrain, and medulla. . Normal basal cisterns. Normal bilateral temporal bones. Normal bilateral internal auditory canals. No demonstrated orbital abnormality, within the constraints of a routine brain study. Minor mucosal thickening of the ethmoid air cells. Normal calvarium and skull base. Normal visualized soft tissue structures. Normal visualized upper cervical spine. There is a tiny focus of enhancement in the right ed consistent with active demyelination MRI/Brain W/WO Contrast IMPRESSION: Findings consistent with advanced multiple sclerosis as per clinical history with tiny enhancing lesion in the right ed consistent with actively demyelinating plaque Other findings as above Electronically Signed: Isaiah Dominguez MD at 20:00 EDT , Service support , CC: JENNIFER Muniz; Britton Palafox DO Pest Control Technician: Signed CBC-COMPLETE BLOOD CNT Collected: 06/27/2018 Status: F Source: SIRI NO DIFF 6:10 AM [facility] REPOSITORY TYPE CODE TESTS RESULT OUT OF RANGE REFERENCE UNITS LAB L100.1000 4.4-11.0 K/mm3 Normal WBC 4.9 LAB L100.1200 4.2-5.4 M/mm3 Low RBC 4.14 LAB L100.1300 12.0-15.0 g/dl Normal HGB 12.6 LAB L100.1400 37-47 % Normal HCT 40.0 LAB L100.1500 81-99 fL Normal MCV 96.6 LAB L100.1600 27.0-32.0 pg Normal MCH 30.4 LAB L100.1700 32-36 g/gl Low MCHC 31.5 LAB L100.1810 11.6-14.6 % Normal RDW CV 14.6 LAB L100.1820 35.1-43.9 fl High RDW SD 52.0 LAB L100.1900 150-450 K/mm3 Normal PLT 252 LAB L100.2000 6.2-12.0 fl Normal MPV 10.1 Performed By: #### L100.0500 #### [facility] [address] [place], [address] BASIC METABOLIC Collected: 06/27/2018 Status: F Source: SIRI PROFILE (BMP) 6:10 AM [facility] REPOSITORY TYPE CODE TESTS RESULT OUT OF RANGE REFERENCE UNITS LAB L501.0100 74-106 mg/dL Normal GLU 83 Result Comment: Please note revised GLUCOSE reference range effective 2017. LAB L501.1000 7-18 mg/dL Normal BUN 10 LAB L501.1100 0.55-1.02 mg/dL Normal CREAT,SERUM 0.66 Result Comment: The validity of the calculated GFR AND GFRAA in patients over 70 years has not been determined. Clinical correlation is essential. LAB L501.1110 >60 mL/min Normal EST GFR 97 Result Comment: Non- GFR Calc LAB L501.1115 >60 mL/min Normal EST GFR - AA 117 Result Comment: GFR Calc LAB L501.1300 10-20 RATIO Normal BUN/CRE 15.2 LAB L501.2200 8.5-10.1 mg/dL CA Normal 8.8 LAB L501.5300 136-145 mmol/L NA Normal 140 LAB L501.5600 3.5-5.1 mmol/L K Normal 3.7 LAB L501.5900 98-107 mmol/L CL Normal 107 LAB L501.6100 21.0-32.0 mmol/L Normal CO2 25.0 LAB L501.6200 5-15 Normal GAP 8 Performed By: #### L500.2500 #### [facility] [address] [place], [address] XR FLUORO GUIDANCE FOR Observed: 05/26/2018 Status: F Source: [facility] THERAPY INJECTION 2:44 PM [facility] REPOSITORY ORIGINAL Images acquired, not reported on this accession number. CBC-COMPLETE BLOOD CNT Collected: 05/13/2018 Status: F Source: SIRI NO DIFF 6:20 AM [facility] REPOSITORY Order Comment: ROOM 511 TYPE CODE TESTS RESULT OUT OF RANGE REFERENCE UNITS LAB L100.1000 4.4-11.0 K/mm3 Low WBC 3.7 LAB L100.1200 4.2-5.4 M/mm3 Low RBC 4.13 LAB L100.1300 12.0-15.0 g/dl Normal HGB 12.2 LAB L100.1400 37-47 % Normal HCT 39.3 LAB L100.1500 81-99 fL Normal MCV 95.2 LAB L100.1600 27.0-32.0 pg Normal MCH 29.5 LAB L100.1700 32-36 g/gl Low MCHC 31.0 LAB L100.1810 11.6-14.6 % Normal RDW CV 14.5 LAB L100.1820 35.1-43.9 fl High RDW SD 50.0 LAB L100.1900 150-450 K/mm3 Normal PLT 297 LAB L100.2000 6.2-12.0 fl Normal MPV 10.2 Performed By: #### L100.0500 #### [facility] [address] [place], [place], [address] BASIC METABOLIC Collected: 05/13/2018 Status: F Source: DRIFTING PROFILE (BMP) 6:20 AM [facility] REPOSITORY Order Comment: ROOM 511 TYPE CODE TESTS RESULT OUT OF RANGE REFERENCE UNITS LAB L501.0100 74-106 mg/dL Normal GLU 89 Result Comment: Please note revised GLUCOSE reference range effective 2017. LAB L501.1000 7-18 mg/dL Normal BUN 10 LAB L501.1100 0.55-1.02 mg/dL Normal CREAT,SERUM 0.70 Result Comment: The validity of the calculated GFR AND GFRAA in patients over 70 years has not been determined. Clinical correlation is essential. LAB L501.1110 >60 mL/min Normal EST GFR 90 Result Comment: Non- GFR Calc LAB L501.1115 >60 mL/min Normal EST GFR - AA 109 Result Comment: GFR Calc LAB L501.1300 10-20 RATIO Normal BUN/CRE 14.2 LAB L501.2200 8.5-10.1 mg/dL CA Normal 9.0 LAB L501.5300 136-145 mmol/L NA Normal 145 LAB L501.5600 3.5-5.1 mmol/L K Normal 4.4 LAB L501.5900 98-107 mmol/L High CL 109 LAB L501.6100 21.0-32.0 mmol/L Normal CO2 28.0 LAB L501.6200 5-15 Normal GAP 8 Performed By: #### L500.2500 #### [facility] [address] [place], [place], [address] CARBAMAZEPINE (TEGRETOL) Collected: 05/06/2018 Status: F Source: SIRI 6:15 AM [facility] REPOSITORY Order Comment: 511-2 TYPE CODE TESTS RESULT OUT OF REFERENCE UNITS RANGE LAB L501.7900 4.0-12.0 ug/mL CARBAMAZEPINE Normal 9.3 Performed By: #### L501.7900 #### [facility] [place], [address] CBC W/DIFF, AUTOMATED Collected: 04/22/2018 Status: F Source: SIRI 6:20 AM [facility] REPOSITORY Order Comment: 511-2 TYPE CODE TESTS RESULT OUT OF RANGE REFERENCE UNITS LAB L100.1000 4.4-11.0 K/mm3 Low WBC 4.1 LAB L100.1200 4.2-5.4 M/mm3 Normal RBC 4.40 LAB L100.1300 12.0-15.0 g/dl Normal HGB 13.3 LAB L100.1400 37-47 % Normal HCT 41.4 LAB L100.1500 81-99 fL Normal MCV 94.1 LAB L100.1600 27.0-32.0 pg Normal MCH 30.2 LAB L100.1700 32-36 g/gl Normal MCHC 32.1 LAB L100.1810 11.6-14.6 % Normal RDW CV 13.5 LAB L100.1820 35.1-43.9 fl High RDW SD 45.0 LAB L100.1900 150-450 K/mm3 Normal PLT 260 LAB L100.2000 6.2-12.0 fl Normal MPV 11.1 LAB L100.2100 47-70 % Low NEUT% 44.6 LAB L100.2200 19-41 % High LY% 43.6 LAB L100.2300 0-10 % Normal MONO% 8.9 LAB L100.2400 0-5 % Normal EO% 1.7 LAB L100.2500 0-1 % High BASO% 1.2 LAB L100.2550 0.0-0.9 % Normal IM GRAN % 0.000 Result Comment: IG% - Immature Granulocytes (promyelocytes, myelocytes and metamyelocytes) > 1% indicates that a LEFT SHIFT is Present. LAB L100.2620 2.0-7.7 X10 3/uL Low Absolute Neut 1.8 LAB L100.2720 0.83-4.51 X10 3/ul Normal Absolute Lymph 1.77 Performed By: #### L100.0100 #### [facility] [address] [place], [place], [address] BASIC METABOLIC Collected: 04/22/2018 Status: F Source: SIRI PROFILE (BMP) 6:20 AM [facility] REPOSITORY Order Comment: 511-2 TYPE CODE TESTS RESULT OUT OF RANGE REFERENCE UNITS LAB L501.0100 74-106 mg/dL Normal GLU 80 Result Comment: Please note revised GLUCOSE reference range effective 2017. LAB L501.1000 7-18 mg/dL Normal BUN 8 LAB L501.1100 0.55-1.02 mg/dL Normal CREAT,SERUM 0.73 Result Comment: The validity of the calculated GFR AND GFRAA in patients over 70 years has not been determined. Clinical correlation is essential. LAB L501.1110 >60 mL/min Normal EST GFR 87 Result Comment: Non- GFR Calc LAB L501.1115 >60 mL/min Normal EST GFR - AA 105 Result Comment: GFR Calc LAB L501.1300 10-20 RATIO Normal BUN/CRE 11.0 LAB L501.2200 8.5-10.1 mg/dL CA Normal 9.0 LAB L501.5300 136-145 mmol/L NA Normal 140 LAB L501.5600 3.5-5.1 mmol/L K Normal 3.9 LAB L501.5900 98-107 mmol/L CL Normal 104 LAB L501.6100 21.0-32.0 mmol/L Normal CO2 29.0 LAB L501.6200 5-15 Normal GAP 7 Performed By: #### L500.2500 #### [facility] [address] [place], [address] CBC-COMPLETE BLOOD CNT Collected: 04/04/2018 Status: F Source: SIRI NO DIFF 7:50 AM [facility] REPOSITORY Order Comment: ROOM 511 BRIANA TYPE CODE TESTS RESULT OUT OF RANGE REFERENCE UNITS LAB L100.1000 4.4-11.0 K/mm3 Low WBC 4.0 LAB L100.1200 4.2-5.4 M/mm3 Normal RBC 4.41 LAB L100.1300 12.0-15.0 g/dl Normal HGB 13.2 LAB L100.1400 37-47 % Normal HCT 41.8 LAB L100.1500 81-99 fL Normal MCV 94.8 LAB L100.1600 27.0-32.0 pg Normal MCH 29.9 LAB L100.1700 32-36 g/gl Low MCHC 31.6 LAB L100.1810 11.6-14.6 % Normal RDW CV 13.5 LAB L100.1820 35.1-43.9 fl High RDW SD 45.7 LAB L100.1900 150-450 K/mm3 Normal PLT 298 LAB L100.2000 6.2-12.0 fl Normal MPV 10.6 Performed By: #### L100.0500 #### [facility] [address] [place], [address] BASIC METABOLIC Collected: 04/04/2018 Status: F Source: SIRI PROFILE (BMP) 7:50 AM [facility] REPOSITORY Order Comment: ROOM 511 BRIANA TYPE CODE TESTS RESULT OUT OF RANGE REFERENCE UNITS LAB L501.0100 74-106 mg/dL Normal GLU 88 Result Comment: Please note revised GLUCOSE reference range effective 2017. LAB L501.1000 7-18 mg/dL Normal BUN 14 LAB L501.1100 0.55-1.02 mg/dL Normal CREAT,SERUM 0.76 Result Comment: The validity of the calculated GFR AND GFRAA in patients over 70 years has not been determined. Clinical correlation is essential. LAB L501.1110 >60 mL/min Normal EST GFR 82 Result Comment: Non- GFR Calc LAB L501.1115 >60 mL/min Normal EST GFR - AA 99 Result Comment: GFR Calc LAB L501.1300 10-20 RATIO Normal BUN/CRE 18.3 LAB L501.2200 8.5-10.1 mg/dL CA Normal 9.2 LAB L501.5300 136-145 mmol/L NA Normal 143 LAB L501.5600 3.5-5.1 mmol/L K Normal 4.5 LAB L501.5900 98-107 mmol/L High CL 108 LAB L501.6100 21.0-32.0 mmol/L Normal CO2 28.0 LAB L501.6200 5-15 Normal GAP 7 Performed By: #### L500.2500 #### [facility] [address] [place], [address] CBC W/DIFF, AUTOMATED Collected: 03/04/2018 Status: F Source: SIRI 6:05 AM [facility] REPOSITORY Order Comment: 511-2 TYPE CODE TESTS RESULT OUT OF RANGE REFERENCE UNITS LAB L100.1000 4.4-11.0 K/mm3 Low WBC 3.9 LAB L100.1200 4.2-5.4 M/mm3 Normal RBC 4.34 LAB L100.1300 12.0-15.0 g/dl Normal HGB 12.8 LAB L100.1400 37-47 % Normal HCT 40.6 LAB L100.1500 81-99 fL Normal MCV 93.5 LAB L100.1600 27.0-32.0 pg Normal MCH 29.5 LAB L100.1700 32-36 g/gl Low MCHC 31.5 LAB L100.1810 11.6-14.6 % Normal RDW CV 13.9 LAB L100.1820 35.1-43.9 fl High RDW SD 47.8 LAB L100.1900 150-450 K/mm3 Normal PLT 281 LAB L100.2000 6.2-12.0 fl Normal MPV 10.2 LAB L100.2100 47-70 % Normal NEUT% 48.3 LAB L100.2200 19-41 % Normal LY% 38.3 LAB L100.2300 0-10 % Normal MONO% 9.6 LAB L100.2400 0-5 % Normal EO% 2.5 LAB L100.2500 0-1 % Normal BASO% 1.0 LAB L100.2550 0.0-0.9 % Normal IM GRAN % 0.300 Result Comment: IG% - Immature Granulocytes (promyelocytes, myelocytes and metamyelocytes) > 1% indicates that a LEFT SHIFT is Present. LAB L100.2620 2.0-7.7 X10 3/uL Low Absolute Neut 1.9 LAB L100.2720 0.83-4.51 X10 3/ul Normal Absolute Lymph 1.51 Performed By: #### L100.0100 #### [facility] [address] [place], [address] BASIC METABOLIC Collected: 03/04/2018 Status: F Source: SIRI PROFILE (BMP) 6:05 AM [facility] REPOSITORY Order Comment: 511-2 TYPE CODE TESTS RESULT OUT OF RANGE REFERENCE UNITS LAB L501.0100 74-106 mg/dL Normal GLU 89 Result Comment: Please note revised GLUCOSE reference range effective 2017. LAB L501.1000 7-18 mg/dL High BUN 21 LAB L501.1100 0.55-1.02 mg/dL Normal CREAT,SERUM 0.70 Result Comment: The validity of the calculated GFR AND GFRAA in patients over 70 years has not been determined. Clinical correlation is essential. LAB L501.1110 >60 mL/min Normal EST GFR 91 Result Comment: Non- GFR Calc LAB L501.1115 >60 mL/min Normal EST GFR - AA 110 Result Comment: GFR Calc LAB L501.1300 10-20 RATIO High BUN/CRE 30.1 LAB L501.2200 8.5-10.1 mg/dL CA Normal 9.0 LAB L501.5300 136-145 mmol/L NA Normal 141 LAB L501.5600 3.5-5.1 mmol/L K Normal 4.0 LAB L501.5900 98-107 mmol/L High CL 108 LAB L501.6100 21.0-32.0 mmol/L Normal CO2 28.0 LAB L501.6200 5-15 Normal GAP 5 Performed By: #### L500.2500 #### [facility] [address] [place], [address] URINALYSIS, COMPLETE Collected: 02/14/2018 Status: F Source: SIRI 9:20 AM [facility] REPOSITORY Order Comment: How was Urine Obtained? Urine, Random TYPE CODE TESTS RESULT OUT OF RANGE REFERENCE UNITS LAB L400.3000 Yellow COLOR Normal Yellow LAB L400.3050 Clear Normal CLARITY Sl. Cloudy LAB L400.3200 Normal mg/dl Normal GLUCOSE, UR Normal LAB L400.3300 Negative mg/dL Normal BILIRUBIN URINE Negative LAB L400.3400 Negative mg/dl Normal KETONE UR Negative LAB L400.3465 1.002-1.030 Normal SP.GR. DIPSTX 1.010 LAB L400.3550 5.0 - 8.0 pH UR Normal 7.0 LAB L400.3600 Negative mg/dl High PROT 30 DIPSTX LAB L400.3700 Normal mg/dl Normal UROBILI Normal LAB L400.3750 Negative Normal NITRITE UR Negative LAB L400.3780 Negative /ul High OCCULT BLOOD-UR 250 LAB L400.3800 Negative /ul High LEUK ESTERASE 500 LAB L400.4050 0-5 /hpf WBC Normal >100 SEEN LAB L400.4100 0-5 /hpf Normal RBC-UA 25-50 SEEN LAB L400.4150 5-10 /hpf SQUAM Normal EPI 0-5 SEEN LAB L400.4300 None Seen /hpf 2+ Normal BACTERIA LAB L400.4350 <or=2+ /hpf 0 Normal MUCUS, URINE SEEN Performed By: #### L400.0001 #### [facility] [address] [place], [place], [id number] Observed: 02/14/2018 Status: F Source: DRIFTING CULTURE, URINE 9:20 AM [facility] REPOSITORY Urine Culture ORGANISM 1: Presumptive E. coli Sidney Count >100,000 Presumptive E. coli: REACTION Amoxacillin/Clavulanic Acid $ 4 S Ampicillin $ >=32 R Ampicillin/Sulbactam $ 16 I Cefazolin $ <=4 S Cefepime $ <=1 S Ceftriaxone $ <=1 S Ciprofloxacin $ >=4 R ESBL - Ertapenim $$$ <=0.5 S Gentamicin $ >=16 R Imipenem *NF <=0.25 S Levofloxacin $ >=8 R Nitrofurantoin $ <=16 S Piperacillin/Tazobactam $$ <=4 S Tobramycin $ 2 S Trimethoprim/Sulfametho $ <=20 S (NF) indicates non-formulary drug at [facility]. Approval by Infectious Disease Specialist required before non-formulary drugs may be ordered and/or dispensed. Performed By: #### M100.0650 #### [facility] [address] [place], [place], [id number] CBC-COMPLETE BLOOD CNT Collected: 02/02/2018 Status: F Source: SIRI NO DIFF 5:35 AM [facility] REPOSITORY Order Comment: ROOM 408 TCC TYPE CODE TESTS RESULT OUT OF RANGE REFERENCE UNITS LAB L100.1000 4.4-11.0 K/mm3 Normal WBC 5.8 LAB L100.1200 4.2-5.4 M/mm3 Low RBC 4.14 LAB L100.1300 12.0-15.0 g/dl Normal HGB 12.5 LAB L100.1400 37-47 % Normal HCT 39.6 LAB L100.1500 81-99 fL Normal MCV 95.7 LAB L100.1600 27.0-32.0 pg Normal MCH 30.2 LAB L100.1700 32-36 g/gl Low MCHC 31.6 LAB L100.1810 11.6-14.6 % Normal RDW CV 14.3 LAB L100.1820 35.1-43.9 fl High RDW SD 48.6 LAB L100.1900 150-450 K/mm3 Normal PLT 261 LAB L100.2000 6.2-12.0 fl Normal MPV 10.9 Performed By: #### L100.0500 #### [facility] [address] [place], [address] BASIC METABOLIC Collected: 02/02/2018 Status: F Source: DRIFTING PROFILE (BMP) 5:35 AM [facility] REPOSITORY Order Comment: ROOM 408 TCC TYPE CODE TESTS RESULT OUT OF RANGE REFERENCE UNITS LAB L501.0100 74-106 mg/dL Normal GLU 88 Result Comment: Please note revised GLUCOSE reference range effective 2017. LAB L501.1000 7-18 mg/dL High BUN 24 LAB L501.1100 0.55-1.02 mg/dL Normal CREAT,SERUM 0.76 Result Comment: The validity of the calculated GFR AND GFRAA in patients over 70 years has not been determined. Clinical correlation is essential. LAB L501.1110 >60 mL/min Normal EST GFR 82 Result Comment: Non- GFR Calc LAB L501.1115 >60 mL/min Normal EST GFR - AA 99 Result Comment: GFR Calc LAB L501.1300 10-20 RATIO High BUN/CRE 31.5 LAB L501.2200 8.5-10.1 mg/dL CA Normal 9.0 LAB L501.5300 136-145 mmol/L NA Normal 142 LAB L501.5600 3.5-5.1 mmol/L K Normal 4.3 LAB L501.5900 98-107 mmol/L CL Normal 107 LAB L501.6100 21.0-32.0 mmol/L Normal CO2 29.0 LAB L501.6200 5-15 Normal GAP 6 Performed By: #### L500.2500 #### [facility] [address] [place], [address] TRANSFER TO [facility] Observed: 01/19/2018 Status: F Source: [facility] 2:08 PM [facility] REPOSITORY [facility] Medical Records Department [address] [place] [address] Transfer to [facility] MR#: [id number] Acct: [id number] Name: JILL GONZALEZ Rep #: [id number] : 1955 62 From: Brie TRUJILLO PCP: Britton Palafox DO Status: DIS IN JILL GONZALEZ [id number] (Patient) (Health Ins. Claim No.) (Day of Discharge to Facility) Certification of patient admission REQUIRED AT TIME OF ADMISSION. I CERTIFY THAT POST-HOSPITAL ECF SERVICES ARE REQUIRED TO BE GIVEN ON AN IN-PATIENT BASIS BECAUSE OF THE ABOVE NAMED PATIENT'S NEED FOR SHELTER CARE ON A CONTINUING BASIS FOR THE CONDITION(S) FOR WHICH HE/SHE WAS RECEIVING IN-PATIENT HOSPITAL SERVICES PRIOR TO HIS/HER TRANSFER TO THE [facility]. 01/19/18 1358 <Electronically signed by Brie TRUJILLO> Date Brie TRUJILLO - Diet 12/28/17 17:01 Diet: Regular Diet - Wound(s) R ANKLE Wound Type: Surgical Incision right inner ankle Wound Type: Surgical Incision Dressing Change: Adaptic dressing to wound site cover with 4x4 wrap ankle with gauze right outer ankle Wound Type: Surgical Incision Dressing Change: Dry Sterile Dressing - Therapies Weight Bearing: Non weight bearing Extremity Affected:: Right Lower Physical Therapy: Eval and Treat Occupational Therapy: Eval and Treat - Allergies/Procedures Done in Hospital Allergies/Adverse Reactions: Allergies cefaclor [From Ceclor] Allergy (Verified 07/15/17 13:21) Hives cephalexin [From Keflex] Allergy (Verified 07/15/17 13:21) Hives cetirizine [From Zyrtec] Allergy (Verified 12/28/17 18:21) Itching Penicillins Allergy (Verified 07/15/17 13:21) Unknown Sulfa (Sulfonamide Antibiotics) Allergy (Verified 12/28/17 18:01) Hives acetaminophen [From Vicodin] Adverse Reaction (Verified 07/15/17 13:21) Nausea/Vomiting azithromycin [From Zithromax] Adverse Reaction (Verified 12/28/17 18:01) Unknown clarithromycin [From Biaxin] Adverse Reaction (Verified 12/28/17 18:01) Nausea/Vom/Diarrhea erythromycin base Adverse Reaction (Verified 12/28/17 18:01) Nausea/Vom/Diarrhea hydrocodone bitartrate [From Vicodin] Adverse Reaction (Verified 07/15/17 13:21) Nausea/Vomiting salsalate [From Disalcid] Adverse Reaction (Verified 12/28/17 18:01) Nausea/Vom/Diarrhea - Type of Care/Length of Stay Estimated LOS: More Than 30 Days Type of Care Needed: Skilled Rehab Potential: Good Prognosis: Good - Additional Orders/Day of Discharge Day of Discharge: 01/19/18 - Dietary and Speech Recommendations Dietitian Recommendations/Changes: Rec calcium w/ vit D to help w/ fx healing - Follow Up Care Primary Care Physician: Britton Palafox DO [Primary Care Provider] - 01/19/18 9748 <Electronically signed by Brie TRUJILLO> Date Brie TRUJILLO CC: Chalo Jackman MD; Britton Palafox DO Signed DISCHARGE SUMMARY Observed: 01/19/2018 Status: F Source: DRIFTING 2:08 PM [facility] REPOSITORY [facility] Medical Records Department [address] [place] [address] Discharge Summary 01/19/18 0847 MR#: [id number] Acct: [id number] Name: JILL GONZALEZ Rep #: [id number] : 1955 62 From: Brie Muniz HOUSING AND RESIDENCE LIFE DIRECTOR-C PCP: Britton Palafox DO Status: DIS IN Y Location: [address] Rehab Discharge Summary DATE OF ADMISSION: 12/28/17 DATE OF DISCHARGE: 01/19/18 - Rehab Diagnosis Right Ankle Fracture Discharge Diet: No Restrictions Discharge Activity: May Not Drive, May not drive while taking narcotic pain medications., May Shower - keep right leg dry do not get dressing wet, wrap leg in plastic bag to keep dry during shower, Use Walker Weight Bearing Status: No weight bearing Keep extremity elevated above heart level: Right Leg Call your doctor if your incision/area has: Increased Pain/ Swelling, Increased Redness, Foul Smelling Discharge, Swelling at the incision site Call your doctor if you observe: Fever of 101 or Higher, Coldness, Increased Pain, Numbness or Tingling, Change in Color, Inability to urinate, Inability to have a bowel movement, Using more than one pad per hour, Shortness of breath, Dizziness, Fainting spells, Swelling in the ankles, Chest pain, Prolonged hiccoughing, Increased palpitations (irregular heartbeat), Calf discomfort, Uncontrolled pain Cleanse incision/area with: Do not get Incision Wet, Keep Dressing Clean AND Dry Home Medications: Medications to take at Discharge Loratadine [Claritin] 10 mg PO DAILY 05/28/14 Multivit-Min/FA/Lycopene/Lut [Centrum Silver Tablet] 1 each PO DAILY 07/25/14 Exemestane [Aromasin] 25 mg PO QHS 07/15/17 Gabapentin [Neurontin] 300 mg PO BID 12/28/17 Carbamazepine [Tegretol] 100 mg PO BIDCM tablet 01/19/18 Escitalopram Oxalate [Lexapro] 10 mg PO DAILY tablet 01/19/18 Melatonin 5 mg PO QHS tablet 01/19/18 Nutritional Supplement [Mckinley - ORANGE FLAVOR] 1 packet PO BIDCM packet 01/19/18 Pantoprazole Sodium [Protonix] 40 mg PO DAILY tablet 01/19/18 Senna/Docusate Sodium [Senokot-S] 2 tablet PO BID tablet 01/19/18 Primary Care Physician: Britton Palafox DO [Primary Care Provider] - Disposition: Detention facility Minutes spent on discharge:: 40 Patient Condition:: Good Rehab Course The patient is a 62 year old right handed female, admitted to the rehab unit after suffering a mechanical fall in which she sustained a bimalleolar mildly displace fracture of her right ankle. She has a past medical history of Breast cancer, relapsing Multiple Sclerosis, Sleep apnea, ulcers and depression. She under went an ORIF of her ankle on 12/24/[address] Kam. She is non-weight bearing on the right, she has a splint in place with sutures, the sutures may be removed in one week with follow up with Dr. Kam at discharge. She lives with her son and father in a bilevel home with about 3 to 4 steps to get into the home and about 4 to 5 steps to go from the first level to the second level. She was previously completely functionally independent and is admitted to the rehab unit in order to restore her previous level of functional independence. With Physical therapy, she is able to walk about 55 feet with walker, she requires an occasional reminder not to put weight on the right leg. She is standby assist for bed mobility, and contact guard for transfers and pivots. The plan this week is to work on mobility on the stairs and in general. With Occupational therapy, She is able to do her own personal care, put on her socks and thread her pants over her foot, she does require a light hand occasionally to help with balance while she attempts to pull her pants up. Otherwise she is doing well. With Nursing, changing the dressing covering her incision site BID, putting Adaptive on the medial incision site. The dressing is C/D/I, the incision site is healing nicely. Will be discharged to [facility]. Will follow up with Dr. Kam after discharge. Meaningful Use Info Meaningful Use Diagnoses (Choose all that apply): None applicable 01/19/18 3527 <Electronically signed by Brie TRUJILLO> Date Brie YOUNGBLOODC 01/19/18 1408<Electronically signed by Gideon Carpio MD> Cosigner Signature (if applicable): Date Gideon Carpio MD CC: JENNIFER Muniz; Gideon Carpio MD; Britton Palafox DO Signed DISCHARGE INSTRUCTION Observed: 01/19/2018 Status: F Source: SIRI 10:56 AM [facility] REPOSITORY [facility] Medical Records Department [address] [place] [address] Instructions for Home/Discharge Instructions 01/19/18 0905 MR#: [id number] Acct: [id number] Name: JILL GONZALEZ Rep #: [id number] : 1955 62 From: Brie Muniz HOUSING AND RESIDENCE LIFE DIRECTOR-C PCP: Britton Palafox DO Status: ADM IN - Discharge Diagnoses Reason(s) for Visit for Discharge Instructions: Right Ankle Fracture You will use the following diet at home:: Regular Your food should be the consistency of: Regular Your liquids should be the consistency of: Regular/Thin Discharge Activity: May Not Drive, May not drive while taking narcotic pain medications., May Shower - keep right leg dry do not get dressing wet, wrap leg in plastic bag to keep dry during shower, Use Walker Weight Bearing Status: No weight bearing Keep extremity elevated above heart level: Right Leg Call your doctor if your incision/area has: Increased Pain/ Swelling, Increased Redness, Foul Smelling Discharge, Swelling at the incision site Call your doctor if you observe: Fever of 101 or Higher, Coldness, Increased Pain, Numbness or Tingling, Change in Color, Inability to urinate, Inability to have a bowel movement, Using more than one pad per hour, Shortness of breath, Dizziness, Fainting spells, Swelling in the ankles, Chest pain, Prolonged hiccoughing, Increased palpitations (irregular heartbeat), Calf discomfort, Uncontrolled pain Cleanse incision/area with: Do not get Incision Wet, Keep Dressing Clean AND Dry Allergies/Adverse Reactions: Allergies cefaclor [From Ceclor] Allergy (Verified 07/15/17 13:21) Hives cephalexin [From Keflex] Allergy (Verified 07/15/17 13:21) Hives cetirizine [From Zyrtec] Allergy (Verified 12/28/17 18:21) Itching Penicillins Allergy (Verified 07/15/17 13:21) Unknown Sulfa (Sulfonamide Antibiotics) Allergy (Verified 12/28/17 18:01) Hives acetaminophen [From Vicodin] Adverse Reaction (Verified 07/15/17 13:21) Nausea/Vomiting azithromycin [From Zithromax] Adverse Reaction (Verified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 12/28/2017 Jill K [id number] Primary Jillkaron [address] Insurance:CARESOURCEP ScottDOB: [facility] Number: [id number] Hospital [address]Saq: (330) [id number] Repository [phone] (HP) Date:2017-12-28[address]ATTN: [place] [address]WR: 12/28/2017 Secondary NOT GIVENUNK Tichnor Insurance:SELF PAY [facility] Number: Effective Repository Date:2017-12-28 12/28/2017 Jill Dudley3 Primary Jill K Tichnor [address] Insurance:CARESOURCEP ScottDOB: [facility] Number: [id number] Hospital [address]Kyy: 330 [id number] Repository [phone] () Date:2017-12-28[address]ATTN: [place] [address]EP: 12/28/2017 Secondary NOT GIVENUNK Siri Insurance:SELF PAY [facility] Number: Effective Repository Date:2017-12-28 12/28/2017 Jill Dudley3 Primary Jill K Tichnor [address] Insurance:CARESOURCEP ScottDOB: [facility] Number: [id number] Hospital [address]Jfc: 330 [id number] Repository [phone] () Date:2017-12-28[address]ATTN: [place] [address]DE: 12/28/2017 Secondary NOT GIVENUNK Tichnor Insurance:SELF PAY [facility] Number: Effective Repository Date:2017-12-28 12/28/2017 Jill Dudley3 Primary Jill K Tichnor [address] Insurance:CARESOURCEP ScottDOB: [facility] Number: [id number] Hospital [address]Sjp: (752) [id number] Repository [phone] () Date:2017-12-28[address]ATTN: [place] [address]AE: 12/28/2017 Secondary NOT GIVENUNK Siri Insurance:SELF PAY [facility] Number: Effective Repository Date:2017-12-28 12/28/2017 Jill Bruno [id number] Primary Jill K Siri [address] Insurance:CARESOURCEP ScottDOB: [facility] Number: [id number] Hospital [address]Tpf: 330 [id number] Repository [phone] () Date:2017-12-28[address]ATTN: [place] [address]XA: 12/28/2017 Secondary NOT GIVENUNK Tichnor Insurance:SELF PAY [facility] Number: Effective Repository Date:2017-12-28 12/28/2017 Jill K [id number] Primary Jill K Siri [address] Insurance:CARESOURCEP ScottDOB: [facility] Number: [id number] Hospital [address]Vsq: (595) [id number] Repository [phone] (HP) Date:2017-12-28[address]ATTN: [place] [address]SA: 12/28/2017 Secondary NOT GIVENUNK Tichnor Insurance:SELF PAY [facility] Number: Effective Repository Date:2017-12-28 12/28/2017 Jill Bruno Dudley3 Primary Jill K Tichnor [address] Insurance:CARESOURCEP ScottDOB: [facility] Number: [id number] Hospital [address]12[address]Xoy: 330 [id number] Repository [phone] (HP) Date:2017-12-28[address]ATTN: [place] [address]UC: 12/28/2017 Secondary NOT GIVENUNK Siri Insurance:SELF PAY [facility] Number: Effective Repository Date:2017-12-28 12/28/2017 Jill K [id number] Primary Jill K Siri [address] Insurance:CARESOURCEP ScottDOB: [facility] Number: [id number] Hospital [address]24[address]Fbz: (029) [id number] Repository [phone] (HP) Date:2017-12-[address]ATTN: CLAIMS [facility] [place] [address]KK: 12/28/2017 Secondary NOT GIVENUNK Siri Insurance:SELF PAY [facility] Number: Effective Repository Date:2017-12-28 12/24/2017 JILL K Primary [facility] SCOTTDOB: Insurance:CARESOURCE SCOTTDOB: [facility] W MEDICAIDPolicy [id number] Repository [address] Number: Nabil [address] [place] [id number] [place], [place] [address]Xzr: (330) Date:2017-12-22Tel: (HP) [id number] [phone] Name:XPO Box (HP)Tel: 000) [address], [place] [address] (WP) [address]VT: 12/23/2017 JILL K Primary [facility] SCOTTDOB: Insurance:CARESOCANCER TRE[facility] C[facility]ERS [facility] – TULSAIsi GONZALEZDOB: [facility] W MEDICAIDPolicy [id number] Repository [address] Number: Nabil [place], [place] [id number] [place], [place] [address]Ehs: (330) Date:2017-12-2255015Fnv: (HP) [id number] [phone] Name:XPO Box (HP)Tel: (000) [address], [place] [address] (WP) [address]VT: 12/21/2017 [facility] Primary [facility] SCOTTDOB: Insurance:CARESOURCE ALONDRADOB: [facility] W MEDICAIDPolicy [id number] Repository [address] Number: Nabil ROJASTZ SARAI [place] [id number] [place], [place] [address]Nku: (330) Date:2017-12-2121417Svt: (HP) [id number] [phone] Name:XPO Box ()Tel: 000) [address], [place] [address] () [address]OP: 11/11/2017 JILL SOTO W Primary JILL K [facility], Insurance:[place] [id number]: lucitay Number: Repository [id number] (HP) Date:2017-04-10P.OTri REYES [address] [place] [address]YC:
== END ==
PROVIDERS: Family Provider Preventive Medicine Occupational Medicine; PCP Preventive Medicine Occupational Medicine; Referring Provider Nurse Practitioner Acute Care; Visit Provider Nurse Practitioner Acute Care
DX: G35 Multiple sclerosis (principal); Z98.890 Other specified postprocedural states
CPT/HCPCS: 93005

== ENCOUNTER 2019-01-28 16:22 | Emergency (ER) | payer MEDICARE, MEDICAID, SELFPAY ==
[2019-01-28 16:22] VITALS: BP 148/88; PULSE 96; RESP 18; TEMP 36.1; O2SAT 96; BMI 29.2
--- NOTE | 2019-01-28 16:50 | ED.VISSUMM ---
- ER Visit Summary Date of Service: 01/28/19 Chief Complaint: Dental pain History of Present Illness: The patient is a 63 F who presents with dental pain that has been getting worse over the past 2 days. Patient states she had an extraction of her right lower molar 2 days ago. Patient states the pain is aching and throbbing and getting progressively worse. Patient admits to some hot and cold sensitivity. Patient denies any fevers or swelling. Physical Examination: Vital signs are stable. Patient is afebrile. Patient is in no acute distress. Oral mucosa is pink and moist. There is tenderness and some mild gingival edema around the right lower molar area. There is an apparent dry socket in this area. There is no discharge or drainage. There is no fluctuance. Oropharynx is clear. Airway is patent. Neck is supple. Trachea is midline. There is no JVD noted. Emergency Department Course and Treatment: Patient was given a dose of tramadol here. Dry socket paste was applied to the dry socket area. Patient was given a prescription for 8 tramadol tablets. Patient was instructed to follow-up with her primary care physician and dentist in 2-3 days. Patient understood and was agreeable with the plan. All questions were answered. Disposition: Discharge home Impression: Dry socket right lower molar This note was generated with [employer] dictation software. It may contain incorrect words, spelling, and punctuation that were not noted in review of the chart prior to signing ED Disposition - Plan for ED Patient: Disposition: Home or Assisted Living Diagnosis: Dry tooth socket Instructions: ED Socket Dry Prescriptions: traMADol [Ultram] 50 mg PO Q6H PRN PRN 2 Days #8 tab PRN Reason: Pain Referrals: James Palafox DO [Primary Care Provider] - 2 Days Additional Instructions: Follow-up with your dentist in 2 days for further evaluation.
--- NOTE | 2019-01-28 16:55 | ED.DCSUM_ITS ---
- ER Visit Summary Date of Service: 01/28/19 Chief Complaint: Dental pain History of Present Illness: The patient is a 63 F who presents with dental pain that has been getting worse over the past 2 days. Patient states she had an extraction of her right lower molar 2 days ago. Patient states the pain is a faby and throbbing and getting progressively worse. Patient admits to some hot and cold sensitivity. Patient denies any fevers or swelling. Physical Examination: Vital signs are stable. Patient is afebrile. Patient is in no acute distress. Oral mucosa is pink and moist. There is tenderness and some mild gingival edema around the right lower molar area. There is an lisa arent dry socket in this area. There is no discharge or drainage. There is no fluctuance. Oropharynx is clear. Airway is patent. Neck is supple. Trachea is midline. There is no JVD noted. Emergency Department Course and Treatment: Patient was given a dose of tramadol here. Dry socket paste was applied to the dry socket area. Patient was given a prescription for 8 tramadol tablets. Patient was instructed to follow-up with her primary care physician and dentist in 2-3 days. Patient understood and was agreeable with the plan. All questions were answered. Disposition: Discharge home Impression: Dry socket right lower molar This note was generated with [employer] dictation software. It may contain incorrect words, spelling, and punctuation that were not noted in review of the chart prior to signing ED Disposition - Plan for ED Patient: Disposition: Home or Assisted Living Diagnosis: Dry tooth socket Instructions: ED Socket Dry Prescriptions: traMADol [Ultram] 50 mg PO Q6H PRN PRN 2 Days #8 tab PRN Reason: Pain Referrals: James Palafox DO [Primary Care Provider] - 2 Days Additional Instructions: Follow-up with your dentist in 2 days for further evaluation.
[2019-01-28] MEDS: traMADol 50 MG Tablet PO (17:17)
[2019-01-28 17:22] VITALS: RESP 18
== END 2019-01-28 17:24 | disposition home or self-care (01) ==
PROVIDERS: Emergency Provider Emergency Medicine; Family Provider Preventive Medicine Occupational Medicine; PCP Preventive Medicine Occupational Medicine
DX: M27.3 Alveolitis of jaws (principal); F17.200 Nicotine dependence, unspecified, uncomplicated; Z79.899 Other long term (current) drug therapy
CPT/HCPCS: 99283

== ENCOUNTER 2019-03-01 17:50 | Emergency (ER) | payer MEDICARE, MEDICAID, SELFPAY ==
[2019-03-01 17:52] VITALS: BP 163/94; PULSE 79; RESP 19; TEMP 36.6; O2SAT 96; BMI 30.7
--- NOTE | 2019-03-01 18:33 | ED.VISSUMM ---
- ER Visit Summary Date of Service: 03/01/19 Chief Complaint: Cough History of Present Illness: The patient is a 63 F who presents with a cough that is been getting worse over the past 4 days. Patient states she is coughing up green sputum. Patient admits to some nausea and vomiting. Patient denies any diarrhea. Patient denies any chest pain or shortness of breath. Patient admits to some nasal congestion. Patient states nothing has been helping her cough. Patient denies any fevers or chills. Physical Examination: Vital signs are stable. Patient is afebrile. Patient is in no acute distress. Oral mucosa is pink and moist. Neck is supple. Trachea is midline. There is no JVD noted. Heart was regular rate and rhythm. Lungs are clear and equal bilaterally. There is good respiratory effort noted. Abdomen is soft and nontender. Cranial nerves II through XII are intact. There are no focal motor or sensory deficits noted. Test Results: PA and lateral chest x-ray was obtained. There is no acute cardiopulmonary process. Emergency Department Course and Treatment: Patient was advised that this most likely a viral upper respiratory infection and antibiotics are not necessary at this time. Patient was given prescription for Tessalon. Patient was instructed to follow-up with her primary care physician in 5 to 7 days. Patient understood and was agreeable with the plan. All questions were answered. Disposition: Discharge home Impression: Viral upper respiratory infection This note was generated with [employer] dictation software. It may contain incorrect words, spelling, and punctuation that were not noted in review of the chart prior to signing ED Disposition - Plan for ED Patient: Disposition: Home or Assisted Living Diagnosis: Viral upper respiratory infection Instructions: ED Upper Resp Infec No Abx Tx Prescriptions: Benzonatate [Tessalon Perle] 200 mg PO TID PRN PRN #20 cap PRN Reason: Cough Referrals: James Palafox DO [Primary Care Provider] - 5-7 Days
[2019-03-01] MEDS: Ipratropium/Albuterol Sulfate 3 ML AMPUL.NEB INHALATION (18:34)
[2019-03-01 18:35] VITALS: PULSE 85; RESP 18
--- NOTE | 2019-03-01 18:40 | RAD_ITS ---
STUDY: X-RAY CHEST REASON FOR EXAM: Female, 63 years old. Chest pain TECHNIQUE: PA and lateral views of the chest COMPARISON: Cough FINDINGS: The lungs are clear. There are no pleural effusions. There is no pneumothorax. The heart is normal in size. The visualized osseous structures are within normal limits. RAD/Chest PA and Lateral IMPRESSION: No acute thoracic pathology. Electronically Signed: Isaiah Eller, at 19:10 EDT Tel , Service support ,
[2019-03-01 21:10] VITALS: BP 157/76; PULSE 73; RESP 18; O2SAT 94
== END 2019-03-01 21:10 | disposition home or self-care (01) ==
PROVIDERS: Emergency Provider Emergency Medicine; Family Provider Preventive Medicine Occupational Medicine; PCP Preventive Medicine Occupational Medicine
DX: J06.9 Acute upper respiratory infection, unspecified (principal); R11.2 Nausea with vomiting, unspecified; Z72.0 Tobacco use; Z79.899 Other long term (current) drug therapy
CPT/HCPCS: 71046; 94640; 99282

== ENCOUNTER 2019-03-11 21:48 | Emergency (ER) | payer MEDICARE, MEDICAID, SELFPAY ==
[2019-03-11 21:49] VITALS: BP 167/96; PULSE 77; RESP 16; TEMP 36.7; BMI 29.2
--- NOTE | 2019-03-11 22:13 | ED.VISSUMM ---
- ER Visit Summary Date of Service: 03/11/19 Chief Complaint: Jaw pain History of Present Illness: The patient is a [address] Ambrose. She reports that in August 2018 she had a nerve numbed in her right mandible by a cash management specialist and that she has had intermittent episodes of pain ever since that time. She reports that this is the fourth episode. She complains of right mandibular pain that began 2 days ago. It is a constant sharp, stabbing pain. Is 10 out of 10 severity. Is worsened by eating, touching it, or talking. She has not taken anything for pain. She denies any hot or cold sensitivity. She denies any dental pain. She denies any change in her vision. No double vision. Review of systems: General: No fever, chills, cold sweats. Cardiovascular: No chest pain, palpitations. Respiratory: No cough, shortness of breath, dyspnea on exertion. Gastrointestinal: No abdominal pain, nausea, vomiting, diarrhea, melena, or hematochezia. Genitourinary: No dysuria, frequency, hematuria. Skin: No rash. Neuro: No headache, numbness, weakness. Physical Examination: Vitals: Stable. Afebrile. Mouth: No trismus. No edema of the floor of the mouth. Pain with percussion of right mandibular first and second premolars and first molar. The second molar is absent. There is no exposed bone. There is no facial swelling. There is no focal abscess. General: A&O x 3. NAD. Cardiovascular exam: Regular rate and rhythm, no murmur, rub or gallop. Respiratory exam: Clear to auscultation bilaterally. No wheezes or stridor. Abdominal exam: Soft, nontender, nondistended, normal bowel sounds. No peritoneal signs. Extremity: No clubbing, cyanosis, or edema. Emergency Department Course and Treatment: Patient was treated with naproxen and Percocet. She is resting comfortably. Treatment Plan: Patient will be discharged prescription for 12 Percocet and naproxen. Instructed to follow-up with her cash management specialist as soon as possible. Return to the emergency department for any worsening symptoms. Disposition: To home in improved and stable condition. Impression: 1. Right mandibular pain. This note was generated with [employer] software. It may contain incorrect words, spelling, and punctuation that were not noted in review of the chart prior to signing ED Disposition - Plan for ED Patient: Disposition: Home or Assisted Living Instructions: Understanding Temporomandibular Disorders (TMD) Prescriptions: Oxycodone HCl/Acetaminophen [Percocet 5/325] 1 tablet PO Q6H PRN PRN 3 Days #12 tablet PRN Reason: Pain Naproxen [Naprosyn] 500 mg PO BID #14 tablet Additional Instructions: Follow up with your extension service specialist in charge as soon as possible.
[2019-03-11] MEDS: oxyCODONE 5 MG Tablet 10 MG PO (22:28)
[2019-03-11] MEDS: Naproxen 500 MG Tablet PO (22:28)
[2019-03-11] MEDS: oxyCODONE 5 MG Tablet PO (22:29)
[2019-03-11 22:36] VITALS: BP 158/66; PULSE 72; RESP 18; O2SAT 97
--- NOTE | 2019-03-11 22:42 | ED.RN ---
CALLED REPORT ON PT TO GORDON AGUILAR RN, AT [phone].
== END 2019-03-11 22:39 | disposition home or self-care (01) ==
PROVIDERS: Emergency Provider Emergency Medicine; Family Provider Preventive Medicine Occupational Medicine; PCP Preventive Medicine Occupational Medicine
DX: R68.84 Jaw pain (principal); Z72.0 Tobacco use; Z79.899 Other long term (current) drug therapy
CPT/HCPCS: 99283

== ENCOUNTER 2019-07-02 17:01 | Emergency (ER) | payer MEDICARE, SELFPAY ==
[2019-07-02 17:02] VITALS: BP 156/90; PULSE 91; RESP 16; TEMP 36.2; BMI 30.5
--- NOTE | 2019-07-02 17:15 | ED.VIS.GEN ---
History of Present Illness Chief Complaint: Other, Pain/Inj Detail of Chief Complaint: Right-sided facial pain Informant: Patient Onset: Today Context: Gradual Onset Current Severity: Moderate Maximum Severity: Moderate Narrative: Patient has a history of trigeminal neuralgia. She states she developed right facial pain this morning consistent with her prior flares. She tried to lay down and sleep when she woke the pain was worse. She is already on gabapentin and Tegretol. She took Tylenol earlier this morning but it did not help control her pain. Past Medical History - Allergies and Home Meds Allergies/Adverse Reactions: Allergies cefaclor [From Ceclor] Allergy (Verified 03/11/19 21:53) Hives cephalexin [From Keflex] Allergy (Verified 03/11/19 21:53) Hives cetirizine [From Zyrtec] Allergy (Verified 03/11/19 21:53) Itching Penicillins Allergy (Verified 03/11/19 21:53) Unknown Sulfa (Sulfonamide Antibiotics) Allergy (Verified 03/11/19 21:53) Hives acetaminophen [From Vicodin] Adverse Reaction (Verified 03/11/19 21:53) Nausea/Vomiting azithromycin [From Zithromax] Adverse Reaction (Verified 03/11/19 21:53) Unknown clarithromycin [From Biaxin] Adverse Reaction (Verified 03/11/19 21:53) Nausea/Vom/Diarrhea erythromycin base Adverse Reaction (Verified 03/11/19 21:53) Nausea/Vom/Diarrhea hydrocodone bitartrate [From Vicodin] Adverse Reaction (Verified 03/11/19 21:53) Nausea/Vomiting salsalate [From Disalcid] Adverse Reaction (Verified 03/01/19 17:51) Nausea/Vom/Diarrhea Primary Care Physician: James Palafox DO [Primary Care Provider] - Prior records reviewed: Yes Past Medical History: - - Reviewed Surgical History: hysterectomy, tonsillectomy, - - Lumpectomy of left breast Smoking Status: Current every day smoker Review of Systems General: Denies: Chills, Fever Eyes: Denies: Visual changes - bilaterally ENT: Reports: - - Pain originating just anterior to right ear and spreading over right face.. Denies: Sore throat Cardiovascular: Denies: Chest pain Respiratory: Denies: Dyspnea Gastrointestinal: Denies: Abdominal pain Genitourinary: Denies: Dysuria, Hematuria Skin: Denies: Rash Neurological: Denies: Headache Endocrine: Denies: Polyuria Hematologic: Denies: Easy bruising Allergy: Denies: Uticaria, Swelling of the mouth Physical Exam Vital Signs/Narrative: Vital Signs Temp Pulse Resp BP 07/02/19 17:02 97.2 F L 91 16 156/90 H Inital Vital Signs reviewed: Yes General: Well nourished, Well developed Head: Normocephalic Eyes: Perrl, EOMI ENT: Moist mucous membranes, - - Reproducible tenderness just anterior to the right ear. No masses. No facial erythema or swelling. Neck: Supple, Nontender Cardiovascular: Regular rate, Regular rhythm Respiratory: No distress, CTA bilaterally Abdomen: Soft, Nontender Extremities: Nontender Skin: Normal color Neurological: Alert, Oriented x3 Psychological: Normal affect Diagnostic/Tx/Re-eval - Medical Decision Making His exam findings are consistent with trigeminal neuralgia. She is already on Tegretol and Neurontin. We will add Percocet and attempts to control her pain. She does see a specialist for this and has an appointment scheduled on July 15. She is advised to call to see if her appointment can be moved up sooner. ED Disposition - Plan for ED Patient: Disposition: Home or Assisted Living Diagnosis: Trigeminal neuralgia Instructions: Trigeminal Neuralgia Prescriptions: Oxycodone HCl/Acetaminophen [Percocet 5/325] 1 tablet PO Q6H PRN PRN 3 Days #12 tablet PRN Reason: Pain Referrals: James Palafox DO [Primary Care Provider] - Additional Instructions: Follow-up with your specialist as scheduled if not able to get in earlier.
[2019-07-02] MEDS: oxyCODONE 5 MG Tablet PO (17:25)
== END 2019-07-02 17:31 | disposition home or self-care (01) ==
LOC: ED 17:28
PROVIDERS: Emergency Provider Emergency Medicine; Family Provider Preventive Medicine Occupational Medicine; PCP Preventive Medicine Occupational Medicine
DX: G50.0 Trigeminal neuralgia (principal); F17.200 Nicotine dependence, unspecified, uncomplicated; Z79.899 Other long term (current) drug therapy; Z88.0 Allergy status to penicillin; Z88.1 Allergy status to other antibiotic agents; Z88.2 Allergy status to sulfonamides; Z88.5 Allergy status to narcotic agent; Z90.710 Acquired absence of both cervix and uterus
CPT/HCPCS: 99283

== ENCOUNTER 2020-06-22 16:05 | Emergency (ER) | payer MEDICARE, SELFPAY ==
[2020-06-22 16:06] VITALS: BP 126/70; PULSE 99; RESP 16; TEMP 36.6; O2SAT 99; BMI 23.2
--- NOTE | 2020-06-22 16:18 | ED.VIS.GEN ---
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 she states for a few days she is had exacerbation with more sharp stabbing pain no fever no cough no runny nose no trauma no difficulty opening her mouth or breathing this is identical to what she is had in the past, She indicates other than the injection she is to use [id number] medications for pain management, she presents asking that something stronger than [id number] medication be prescribed she is not allergic to Percocet Past Medical History - Allergies and Home Meds Allergies/Adverse Reactions: Allergies cefaclor [From Ceclor] Allergy (Verified 06/22/20 16:06) Hives cephalexin [From Keflex] Allergy (Verified 06/22/20 16:06) Hives cetirizine [From Zyrtec] Allergy (Verified 06/22/20 16:06) Itching Penicillins Allergy (Verified 06/22/20 16:06) Unknown Sulfa (Sulfonamide Antibiotics) Allergy (Verified 06/22/20 16:06) Hives acetaminophen [From Vicodin] Adverse Reaction (Verified 06/22/20 16:06) Nausea/Vomiting azithromycin [From Zithromax] Adverse Reaction (Verified 06/22/20 16:06) Unknown clarithromycin [From Biaxin] Adverse Reaction (Verified 06/22/20 16:06) Nausea/Vom/Diarrhea erythromycin base Adverse Reaction (Verified 06/22/20 16:06) Nausea/Vom/Diarrhea hydrocodone bitartrate [From Vicodin] Adverse Reaction (Verified 06/22/20 16:06) Nausea/Vomiting salsalate [From Disalcid] Adverse Reaction (Verified 06/22/20 16:06) Nausea/Vom/Diarrhea Primary Care Physician: James Palafox DO [Primary Care Provider] - Past Medical History: - - Includes as above and facial pain syndrome Surgical History: hysterectomy, tonsillectomy, - - Lumpectomy of left breast Smoking Status: Current every day smoker Review of Systems General: Denies: Chills, Fever, Sweats Eyes: Denies: Visual changes - bilaterally, Diplopia ENT: Reports: - - Right facial pain syndrome. Denies: Rhinorrhea, Sore throat Cardiovascular: Denies: Chest pain, Palpitations Respiratory: Denies: Dyspnea, Cough, Dyspnea on exertion Gastrointestinal: Denies: Abdominal pain, Nausea, Vomiting, Diarrhea, Melena, Hematochezia Genitourinary: Denies: Dysuria, Hematuria, Frequency Musculoskeletal: Denies: Back pain, Extremity Pain Skin: Denies: Rash, Wounds Neurological: Denies: Headache, Weakness, Numbness Physical Exam Vital Signs/Narrative: Vital Signs Temp Pulse Resp BP Pulse Ox 06/22/20 16:06 98 F 99 16 126/70 H 99 General: Well nourished, Well developed, No Acute Distress Head: Normocephalic, Atraumatic Eyes: Perrl, EOMI ENT: Moist mucous membranes, No rhinorrhea Neck: Supple, Nontender Cardiovascular: Regular rate, Regular rhythm, No murmurs Respiratory: No distress, CTA bilaterally, Chest nontender Abdomen: Soft, Nontender, Nondistended, Normal bowel sounds Back: Nontender, Normal Inspection Extremities: Nontender, No edema Skin: Normal color, No rash Neurological: Alert, Oriented x3, Cranial nerves II-XII grossly intact, Normal Strength, Normal Sensation Psychological: Normal affect, Normal Mood Diagnostic/Tx/Re-eval - Medical Decision Making Patient takes her finger and draws it from her jaw up straight to the TMJ area complain discomfort here her HEENT exam mouth opening airway intact no coronavirus exposures her cranial nerves appear grossly intact her speech and airway are normal Her and her assure me this is identical to previous episodes of this pain I explained to her that we do not provide these type of injections she did schedule appointment with this physician to get the injections, further I explained to her that given the regulatory requirements and rules by [facility] and other regulators her ongoing pain management needs to be assumed by her outpatient providers and cannot be seen by the emergency department, she will be provided 1 Percocet tablet and will follow-up with her physicians Home stable Impression 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
[2020-06-22] MEDS: oxyCODONE 5 MG Tablet PO (16:31)
== END 2020-06-22 16:44 | disposition home or self-care (01) ==
LOC: ED 16:37
PROVIDERS: Emergency Provider Emergency Medicine; PCP Internal Medicine
DX: R51 Headache (principal); F17.200 Nicotine dependence, unspecified, uncomplicated; Z79.899 Other long term (current) drug therapy
CPT/HCPCS: 99283

== ENCOUNTER 2021-02-27 18:15 | Emergency (ER) | payer OTHER, MEDICARE, SELFPAY ==
[2021-02-27 18:16] VITALS: BP 142/77; PULSE 83; RESP 15; TEMP 36.8; O2SAT 100; BMI 22.8
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
[2021-02-27] MEDS: oxyCODONE 5 MG Tablet PO (19:26)
[2021-02-27] MEDS: Ondansetron ODT 4 MG Tablet PO (19:26)
--- NOTE | 2021-02-27 19:30 | RAD_ITS ---
INDICATION: CP EXAMINATION/TECHNIQUE: X-RAY - XR Chest 2 Views COMPARISON: 03/01/2019. FINDINGS: The lungs are clear. Hyperinflated lungs. The cardiomediastinal silhouette is unremarkable. No pleural effusion or pneumothorax. Degenerative changes of the thoracic spine and shoulders. RAD/Chest PA and Lateral IMPRESSION: No acute radiographic abnormalities. Hyperinflated lungs which can be seen in COPD. Electronically Signed: Wayne Campbell MD at 19:49 EDT Tel , Service support ,
[2021-02-27 20:35] VITALS: RESP 18
== END 2021-02-27 20:36 | disposition home or self-care (01) ==
LOC: ED 20:14
PROVIDERS: Emergency Provider Emergency Medicine; PCP Internal Medicine
DX: S20.219A Contusion of unspecified front wall of thorax, initial encounter (principal); V43.52XA Car driver injured in collision with other type car in traffic accident, initial encounter; Y93.9 Activity, unspecified; Y92.9 Unspecified place or not applicable; Y99.9 Unspecified external cause status; G35 Multiple sclerosis; F17.200 Nicotine dependence, unspecified, uncomplicated; Z79.1 Long term (current) use of non-steroidal anti-inflammatories (NSAID)
CPT/HCPCS: 71046; 99285

== ENCOUNTER 2024-04-02 01:33 | Emergency (ER) | payer MEDICARE, MEDICAID, SELFPAY ==
[2024-04-02 01:35] VITALS: BP 184/90; PULSE 85; RESP 16; TEMP 36.3; O2SAT 98; BMI 23.8
--- NOTE | 2024-04-02 02:48 | EDS_ITS ---
HPI History of Present Illness Chief Complaint: Other, Pain/Inj Informant: patient and family Narrative Narrative: Patient is a 69-year-old female with past medical history of multiple sclerosis and trigeminal neuralgia. She states that she has had trigeminal neuralgia for multiple years and used to follow with a specialist who would help control her pain with trigeminal nerve blocks. Son states that she used to be on carbamazepine but did not take her medications as directed and had concern for overdose and therefore she was stopped on these. The patient denies any trauma or sick symptoms and simply states that she is having increasing pain from her trigeminal neuralgia which is keeping her from sleeping and presents ER at this time requesting a trigeminal nerve block [facility] Medical History (Updated 04/03/24 @ 00:[address] Jose Carlos Torres, DO) Multiple sclerosis Home Medications ?Medication ?Instructions ?Recorded ?Last Taken ?Type loratadine 10 mg tablet (Allergy 10 mg PO DAILY allergies 05/28/14 07/30/14 History Relief (loratadine)) xhigyysj-ohq-[id number] acid 0.4 1 ea PO DAILY supplement 07/25/14 07/30/14 History mg-lycopene 300 mcg-lutein 250 mcg tablet (Centrum Silver) Allergy/AdvReac Type Severity Reaction Status Date / Time cefaclor (From Ceclor) Allergy Hives Verified 04/02/24 01:35 cephalexin (From Keflex) Allergy Hives Verified 04/02/24 01:35 cetirizine (From Zyrtec) Allergy Itching Verified 04/02/24 01:35 Penicillins Allergy Unknown Verified 04/02/24 01:35 Sulfa (Sulfonamide Allergy Hives Verified 04/02/24 01:35 Antibiotics) acetaminophen (From Vicodin) AdvReac Nausea/Vomi Verified 04/02/24 01:35 ting azithromycin (From Zithromax) AdvReac Unknown Verified 04/02/24 01:35 clarithromycin (From Biaxin) AdvReac Nausea/Vom/ Verified 04/02/24 01:35 Diarrhea erythromycin base AdvReac Nausea/Vom/ Verified 04/02/24 01:35 Diarrhea hydrocodone bitartrate (From AdvReac Nausea/Vomi Verified 04/02/24 01:35 Vicodin) ting salsalate (From Disalcid) AdvReac Nausea/Vom/ Verified 04/02/24 01:35 Diarrhea Social History Smoking Status: Former smoker ROS ROS ED Constitutional Constitutional ED: Denies chills or fever(s) Eyes Eyes: Denies change in vision ENT ENT ED: Reports other Details: Positive facial pain ; Denies sore throat Cardiovascular Cardiovascular: Denies chest pain Respiratory/Chest Respiratory/Chest: Denies cough or dyspnea Gastrointestinal Gastrointestinal: Denies abdominal pain, diarrhea, nausea or vomiting Genitourinary Genitourinary ED: Denies dysuria Musculoskeletal Musculoskeletal: Denies myalgias or neck pain Integumentary Denies rash Neurologic Neurologic: Denies headache(s) Hematologic/Lymphatic Hematologic/Lymphatic: Denies easy bleeding or easy bruising EXAM Physical Exam Const Vital Signs: 04/02/24 01:35 04/02/24 01:35 Temperature 97.4 F L Temperature Source Temporal Pulse Rate 85 Respiratory Rate 16 Respiratory Effort Normal Non-Labored Respiratory Pattern Normal Blood Pressure 184/90 H Blood Pressure Mean 121 Pulse Ox 98 Oxygen Delivery Method Room Air Positive well nourished and well developed General Appearance ED: well developed; Negative for pallor HEENT Reports TM's clear and moist mucous membranes HEENT Narrative: No tongue or lip swelling no oral lesions no obvious dental abscess no signs of secondary infection of the posterior pharynx Patient has pain with even light touch along the TMJ and tragus of the right ear consistent with potential trigeminal neuralgia Tympanic Membrane ED: Yes TM's clear Eyes PERRL and EOMs intact bilaterally General Eye ED: Negative for scleral icterus Neck supple Neck Narrative: No nuchal rigidity or meningeal signs Resp normal respiratory effort and clear to auscultation bilaterally Cardio regular rate and regular rhythm Extremity normal to inspection Neuro oriented x3, CN's II-XII intact bilaterally and no sensory deficits noted Neuro Narrative: Cranial nerves II through XII are grossly intact there are no focal neurologic deficits No pronator drift no dysmetria no truncal ataxia NIH stroke scale score of 0 Sensorium / Orientation: alert Motor Exam: strength 5/5 throughout Psych Psych Narrative: Patient has a depressed/flat affect Skin no rashes or lesions noted and no wounds General Skin Exam: Negative for jaundice or pallor MDM MDM MDM Narrative Medical decision making narrative: Patient arrived to the ER hypertensive otherwise with stable vitals. She reported a longstanding history of trigeminal neuralgia and states that this feels similar nature to her previous exacerbations. She does not have any overlying signs of trauma or infection. Physical exam does not show dental infection or concern for sinusitis which could be causing referred pain. There is no signs of otitis externa or otitis media or malignant otitis externa. The pain is not posterior to the ear going against mastoiditis. I offered patient treatment with carbamazepine and baclofen but son has concern about potential overdose based on her history and therefore he will not be prescribed. I informed her that I trigeminal nerve block is not a procedure that is performed in the emergency department. So therefore at this time as I cannot prescribe carbamazepine and baclofen for home and I will not perform the trigeminal nerve block based on insufficient training in this procedure I will simply give the patient 1 dose of pain medication and she will follow-up as an outpatient with neurology to discuss obtaining these blocks History & Record Review Discussion w/independent historian: Patient and Family Discharge Plan Triage Chief Complaint: Other, Pain/Inj ED Provider: Jose Carlos Torres Dx/Rx/DC Orders Clinical Impression: Right trigeminal neuralgia, History of multiple sclerosis Instructions: ED Trigeminal Neuralgia Prescriptions: No Action loratadine [Allergy Relief (loratadine)] 10 MG tablet 10 mg PO DAILY Patient Comments: allergy Centrum Silver 1 EACH tablet 1 ea PO DAILY Patient Comments: supplement Primary Care Provider: aJmes Palafox Referrals: Srinivas Newton MD [Non-Staff -Ordering Privileges] - NOT,DEFINED [Non-Staff] - Activity Restrictions/Additional Instructions: Please follow-up with Dr. Newton or your neurologist to discuss trigeminal nerve blocks or potential treatment with gamma knife therapy. Print Language: Icelandic Disposition Disposition: Home, Self Care Discharge Date/Time: 04/02/24 03:51
[2024-04-02] MEDS: HYDROmorphone 1 MG/ML Syringe IM (03:38)
[2024-04-02] MEDS: Baclofen 10 MG Tablet 5 MG PO (03:40)
[2024-04-02] MEDS: Ondansetron ODT 4 MG Tablet PO (03:41)
[2024-04-02] MEDS: carBAMazepine 200 MG Tablet 100 MG PO (03:41)
[2024-04-02] MEDS: Gabapentin 600 MG Tablet 300 MG PO (03:42)
== END 2024-04-02 03:51 | disposition home or self-care (01) ==
LOC: ED 03:09
PROVIDERS: Emergency Provider Emergency Medicine; PCP Preventive Medicine Occupational Medicine; Visit Provider Emergency Medicine
DX: G50.0 Trigeminal neuralgia (principal); G35 Multiple sclerosis; Z87.891 Personal history of nicotine dependence
CPT/HCPCS: 96372; 99283

== ENCOUNTER → 2024-05-09 | Outpatient (CLI) | payer MEDICARE, SELFPAY ==
--- NOTE | 2024-05-09 08:14 | MRI_ITS ---
STUDY: MRI BRAIN WITH AND WITHOUT CONTRAST REASON FOR EXAM: Female, 69 years old. NEUROCOGNITIVE DISORDER TECHNIQUE: Standardized multiplanar fat and water weighted pulse sequences were obtained. IV 11ml clariscan was administered for the contrast portion of the examination. COMPARISON: 07/12/2018 FINDINGS: There is moderate cerebral atrophy with widening of the extra-axial spaces and ventricular dilatation. There are multiple white matter hyperintensities, distributed throughout the deep white matter tracts of the cerebral hemispheres, consistent with moderate chronic white matter ischemic changes. There is no evidence for recent intracranial ischemia or other cause of cytotoxic edema on diffusion weighted imaging (DWI). Normal T2* images of the brain without demonstrated susceptibility artifact. There is no demonstrated hemosiderin stain. Thin section coronal T2-weighted images through the temporal lobes demonstrate no evidence of hippocampal atrophy. Normal bilateral basal ganglia. Normal thalami. There is no extra-axial fluid accumulation. Normal flow voids within the major intracranial circulation suggesting patency by spin echo criteria. Normal venous enhancement. There is no enhancing intra-axial or extra-axial abnormality. Normal sella turcica, pituitary gland, infundibular stalk, optic chiasm and hypothalamus. Normal tectal plate and pineal gland. Normal midbrain, ed and medulla. Normal cerebellum. Normal basal cisterns. Normal bilateral temporal bones. Normal bilateral internal auditory canals. No demonstrated orbital abnormality, within the constraints of a routine brain study. Normal visualized paranasal sinuses. Normal calvarium and skull base. Normal visualized soft tissue structures. Normal visualized upper cervical spine. MRI/Brain W/WO Contrast IMPRESSION: Involutional changes of the brain, as described above. No acute infarct. Electronically Signed: Jason Smith MD at 13:56 EDT ,
[2024-05-09 08:43] LABS: CREATININE FINGERSTICK < 1.0 mg/dL (0.55-1.02); EGFR FINGERSTICK > 60.0000 mL/min (>60)
== END | disposition home or self-care (01) ==
LOC: MRI 08:06
PROVIDERS: PCP Preventive Medicine Occupational Medicine; Referring Provider Psychiatry & Neurology Neurology; Visit Provider Psychiatry & Neurology Neurology
DX: R41.9 Unspecified symptoms and signs involving cognitive functions and awareness (principal)
CPT/HCPCS: 70553; A9575

== ENCOUNTER 2025-07-24 16:35 | Emergency (ER) | payer MEDICARE, SELFPAY ==
[2025-07-24 16:35] VITALS: BP 110/72; PULSE 114; RESP 16; TEMP 36.8; O2SAT 96
[2025-07-24 16:47] VITALS: BMI 25.6
--- NOTE | 2025-07-24 16:52 | CT_ITS ---
PROCEDURE: CT ABDOMEN/PELVIS W IV CONT ONLY 07/24/2025 REASON FOR EXAM: LLQ ABD PAIN TECHNIQUE: Procedure Code: [id number] Modality: CT Procedure: ABDOMEN/PELVIS W IV CONT ONLY Coronal and Sagittal reconstruction series were provided. CONTRAST: Isovue-300 VOLUME: 98 mL One or more dose reduction techniques were used (e.g., Automated exposure control, adjustment of the mA and/or kV according to patient size, use of iterative reconstruction technique. RADIATION DOSE SUMMARY: DLP: 508.34 mGycm COMPARISON: None. FINDINGS: Lung bases: Clear. Mild dependent atelectasis. Liver: Hepatic steatosis. Numerous scattered benign-appearing circumscribed hepatic cysts and/or hemangiomas of varying sizes. No suspicious lesion. Gallbladder: Unremarkable. No biliary ductal dilatation. Spleen: Normal size and morphology. Pancreas: Unremarkable. Adrenals: Unremarkable. Kidneys: Symmetric enhancement. No urolithiasis or hydroureteronephrosis. Several small perihilar cysts, greater on the left. Bladder: Unremarkable. Reproductive Organs: Prior hysterectomy. Unremarkable adnexal regions. Bowel: Unremarkable stomach and small bowel. No evidence of obstruction. Normal appendix. Extensive distal colonic diverticulosis. Segmental circumferential wall thickening and prominent inflammatory fat stranding/edema involving the descending colon, consistent with colitis versus diverticulitis. Lymph nodes: No suspicious lymph node enlargement. Vasculature: Normal caliber abdominal aorta and IVC. Peritoneum / Retroperitoneum: Trace edematous free fluid tracking down the left pericolic gutter down into the pelvis related to colitis. No free air identified. Bones: Minimal degenerative changes of the spine. CT/Abdomen/Pelvis W IV Cont ONLY IMPRESSION: 1. Acute segmental colitis/diverticulitis of the descending colon. 2. No evidence of perforation or drainable fluid collection/abscess. 3. Hepatic steatosis and multiple benign-appearing hepatic cysts and/or hemangi omas. Reading Location: [id number]
--- NOTE | 2025-07-24 17:02 | ED.VIS.GI ---
HPI HPI - GI History of Present Illness Chief Complaint: Abd Pain Informant: patient and friend Abdominal Pain/Flank Pain Onset: Days Context: Gradual Onset Timing: Continuous Quality: Sharp and Stabbing Location: LLQ Current Severity: Moderate Maximum Severity: Moderate Worsened by: Nothing Relieved by: Nothing Nausea/Vomiting/Emesis GI Symptom: Positive for Nausea and Vomiting Onset: Days Severity: Mild Diarrhea/Melena/Hematochezia GI Symptom: Negative for Diarrhea, Melena or Hematochezia Associated Symptoms Associated Symptoms: Negative for Dysuria, Frequency, Hematuria or Urgency Narrative Narrative: 70-year-old female history of dementia, MS, hypertension and prior abdominal hysterectomy. Complaining of left lower quadrant abdominal pain for at least 3 to 4 days. Possibly 2 weeks after recent colonoscopy done at the [facility]. Associated nausea vomiting. No fever. No dysuria. No diarrhea. Prior similar symptoms: No Recent Illness/Hospitalization: No PFSH PFS Medical History Multiple sclerosis Home Medications ?Medication ?Instructions ?Recorded ?Last Taken ?Type loratadine 10 mg tablet (Allergy 10 mg PO DAILY allergies 05/28/14 07/30/14 History Relief (loratadine)) bxosroun-xgn-fimho acid 0.4 1 ea PO DAILY supplement 07/25/14 07/30/14 History mg-lycopene 300 mcg-lutein 250 mcg tablet (Centrum Silver) Allergy/AdvReac Type Severity Reaction Status Date / Time cefaclor (From Ceclor) Allergy Hives Verified 07/24/25 16:37 cephalexin (From Keflex) Allergy Hives Verified 07/24/25 16:37 cetirizine (From Zyrtec) Allergy Itching Verified 07/24/25 16:37 Penicillins Allergy Unknown Verified 07/24/25 16:37 Sulfa (Sulfonamide Allergy Hives Verified 07/24/25 16:37 Antibiotics) acetaminophen (From Vicodin) AdvReac Nausea/Vomi Verified 07/24/25 16:37 ting azithromycin (From Zithromax) AdvReac Unknown Verified 07/24/25 16:37 clarithromycin (From Biaxin) AdvReac Nausea/Vom/ Verified 07/24/25 16:37 Diarrhea erythromycin base AdvReac Nausea/Vom/ Verified 07/24/25 16:37 Diarrhea hydrocodone bitartrate (From AdvReac Nausea/Vomi Verified 07/24/25 16:37 Vicodin) ting salsalate (From Disalcid) AdvReac Nausea/Vom/ Verified 07/24/25 16:37 Diarrhea Social History Smoking Status: Former smoker ROS ROS ED ROS Narrative Left lower quadrant abdominal pain. Nausea vomiting. Constitutional Constitutional ED: Reports chills, fever(s) and subjective ENT ENT ED: Denies ear pain Cardiovascular Cardiovascular: Denies chest pain Respiratory/Chest Respiratory/Chest: Denies cough, dyspnea or dyspnea on exertion Gastrointestinal Gastrointestinal: Reports abdominal pain, nausea and vomiting; Denies constipation or melena Genitourinary Genitourinary ED: Denies dysuria or hematuria Musculoskeletal Musculoskeletal: Denies arthralgias or back pain Integumentary Denies abscess Neurologic Neurologic: Denies headache(s) Psychiatric Psychiatric: Denies anxiety Endocrine Endocrinology: Denies polydipsia Hematologic/Lymphatic Hematologic/Lymphatic: Denies easy bleeding Allergic/Immunologic Allergic/Immunologic ED: Denies mouth swelling, tongue swelling or urticaria EXAM Physical Exam Narrative Exam Narrative: Well-appearing 70-year-old female. Family friend in the room. Vital signs stable afebrile. No acute distress. H EENT exam pupils round react light. Moist mutes membranes. No facial droop. No trauma. Neck nontender no lymphadenopathy. Back nontender. Lungs clear to auscultation bilaterally. Heart regular rhythm rate about 110 no murmur. Chest wall ribs nontender. Abdomen soft nondistended normal bowel sounds left lower quadrant tenderness. No rebound or guarding. No rigidity. Right lower quadrant unremarkable. No hernia or mass. No obstruction. No pulsatile mass. No bruising or signs of trauma. Moving all 4 extremities. Nontender no edema. Normal strength. Neurologically she is awake. Alert. Answering questions following commands. She does have a history of dementia with some chronic mild confusion. Const Vital Signs: 07/24/25 16:35 Temperature 98.3 F Temperature Source Oral Pulse Rate 114 H Respiratory Rate 16 Blood Pressure 110/72 Blood Pressure Mean 84 Pulse Ox 96 Oxygen Delivery Method Room Air MDM MDM MDM Narrative Medical decision making narrative: 70-year-old female left lower quadrant abdominal pain consider diverticulitis versus UTI versus abscess versus other etiology. Treated with morphine for pain and Zofran. CAT scan labs. Repeat exam patient doing well at 6:50 PM. We went over test results and diagnosis of acute descending colon Diverticulitis. Patient will be treated with Cipro and Flagyl here. Says she cannot do penicillin. Placed on each for 2 weeks. Discharged home a prescription for Cipro twice daily for 2 weeks and Flagyl 3 times daily for 3 weeks. Tylenol and Motrin for pain. She did not want a thing stronger. Outpatient follow-up with her primary care provider. Return if worse. I discussed this with the patient and the family friend. History & Record Review Discussion w/independent historian: Patient and Friend Additional record(s) reviewed:: Prior inpatient record, Prior outpatient record, Prior ED visit and Prior labs Lab Data Attestation: I reviewed the patient's lab results. Lab results narrative: CBC shows no other white count 19.1. H&H 14 and 43. Platelets 277. Chemistry shows sodium 135. Gap 13. BUN and creatinine 27 0.9. Glucose 130. Liver enzymes unremarkable other than ALK Phos 114. Lipase normal at 22. Labs: Laboratory Results - last 24 hr 07/24/25 16:54 WBC 19.1 H RBC 4.62 Hgb 14.5 Hct 43.8 MCV 94.8 MCH 31.4 MCHC 33.1 RDW Std Deviation 44.9 H RDW Coeff of Darci 12.9 Plt Count 277 MPV 10.5 Immature Gran % (Auto) 1.000 H Neut % (Auto) 81.6 H Lymph % (Auto) 9.1 L [place] % (Auto) 7.8 Eos % (Auto) 0.1 Baso % (Auto) 0.4 Absolute Neuts (auto) 15.6 H Absolute Lymphs (auto) 1.73 Nucleated RBC % 0 Sodium 135 Potassium 3.9 Chloride 99 Carbon Dioxide 22.9 Anion Gap 13 BUN 27 H Creatinine 0.97 Estim Creat Clear Calc 48.60 L Est GFR (MDRD) Non-Af 64 BUN/Creatinine Ratio 27.7 H Glucose 130 H Calcium 9.6 Total Bilirubin 0.42 AST 24 ALT 17 Alkaline Phosphatase 114 H Total Protein 7.1 Albumin 4.0 Globulin 3.2 Albumin/Globulin Ratio 1.3 Lipase 22 Radiography Diagnostic Testing: Clinical Impression(s) from Imaging Studies Abdomen/Pelvis CT 10/14/25 16:52 IMPRESSION: 1. Acute segmental colitis/diverticulitis of the descending colon. 2. No evidence of perforation or drainable fluid collection/abscess. 3. Hepatic steatosis and multiple benign-appearing hepatic cysts and/or hemangiomas. Reading Location: [id number] Discharge Plan Triage Chief Complaint: Abd Pain ED Provider: Calos Flynn Dx/Rx/DC Orders Prescriptions: No Action loratadine [Allergy Relief (loratadine)] 10 MG tablet 10 mg PO DAILY Patient Comments: allergy Centrum Silver 1 EACH tablet 1 ea PO DAILY Patient Comments: supplement Primary Care Provider: Tracie Nathan Referrals: Tracie Nathan MD [Primary Care Provider, Family Practice] Print Language: Citizen Of [place]
[2025-07-24 17:12] LABS: Hematocrit 43.8 % (37-47); Hemoglobin 14.5 g/dL (12.0-15.0); Immature Granulocytes Count 0.200 X10^3/uL (0.0-0.0); Mean Corp Hgb Conc 33.1 g/dL (32-36); Mean Corpuscular Volume 94.8 fL (81-99); Mean Platelet Vol. 10.5 fl (6.2-12.0); NRBC Flagged by Analyzer 0 % (0-5); Platelet Count 277 K/mm3 (150-450); RBC Distribution Width CV 12.9 % (11.6-14.6); RBC Distribution Width SD 44.9 fl (35.1-43.9); Red Blood Count 4.62 M/mm3 (4.2-5.4); White Blood Count 19.1 K/mm3 (4.4-11.0)
[2025-07-24 17:22] LABS: Lipase 22 U/L (13-75)
[2025-07-24 17:25] LABS: AST(SGOT) 24 U/L (<=31); Alanine Aminotransfer ALT/SGPT 17 U/L (<=34); Albumin, Serum 4.0 g/dL (3.4-4.8); Alkaline Phosphatase 114 U/L (35-104); Anion Gap 13 (5-15); BUN 27 mg/dL (4-19); BUN/Creat Ratio 27.7 RATIO (10-20); Calcium,Total 9.6 mg/dL (7.6-11.0); Carbon Dioxide 22.9 mmol/L (21.0-32.0); Chloride 99 mmol/L (98-108); Estimated Creatinine Clearance 48.60 ml/min (50-250); Globulin 3.2 g/dL (2.2-4.2); Glucose 130 mg/dL (70-99); Potassium 3.9 mmol/L (3.3-5.1)
[2025-07-24 18:35] VITALS: BP 132/63; PULSE 88; RESP 18; O2SAT 96
[2025-07-24 19:15] VITALS: BP 132/63; PULSE 88; RESP 18; TEMP 37.2; O2SAT 96
== END 2025-07-24 19:21 | disposition home or self-care (01) ==
PROVIDERS: Emergency Provider Emergency Medicine; PCP Pediatrics; Visit Provider Emergency Medicine
DX: R10.32 Left lower quadrant pain (principal); F03.90 Unspecified dementia, unspecified severity, without behavioral disturbance, psychotic disturbance, mood disturbance, and anxiety; R11.2 Nausea with vomiting, unspecified; Z87.891 Personal history of nicotine dependence; I10 Essential (primary) hypertension; Z90.710 Acquired absence of both cervix and uterus
CPT/HCPCS: 74177; 80053; 81001; 83690; 85025; 96374; 96375; 96376; 99284; Q9967; A4216; J2405